=== PATIENT | male | born 1930 | race Caucasian/White ===

== ENCOUNTER 2017-02-13 19:04 | Observation (INO) | payer OTHER ==
[~2017-02-13] VITALS: Ht 177.8 cm; Wt 70.0 kg
[~2017-02-13 19:04] MED LIST: ARIC5TAB PO; ATOR10TA15 PO; DIGO0.12 PO; FLUT1SPR9 EACH NARE; FURO40TA PO; GABA400C5 PO; LEVA250T PO; LEVE500T8 PO; POTA-163 PO; PROS5TAB PO; SERT-132 PO; TAMS5CAP PO; XARE20TA PO
[2017-02-13 19:06] VITALS: BP 104/58; PULSE 88; RESP 16; TEMP 97.8; O2SAT 97
--- NOTE | 2017-02-13 19:14 | PD ---
Physical Exam Date Seen by Provider: Feb 13, 2017 Time Seen by Provider: 19:12 Narrative 86 yo male here for evaluation of possible "mini stroke". Per family member had an episode where he couldnt talk. Was at a place for a drink and started acting different. History of previous CVA. Per family member he is weaker than before. chronic weakness to left side but also right is weak now. Vitals are stable in triage. Awaiting Bed placement. Data Data Last Documented VS Vital Signs Date Time Temp Pulse Resp B/P Pulse Ox O2 Delivery O2 Flow Rate FiO2 02/13/17 19:06 97.8 88 16 104/58 97 Room Air [facility] Medical Record Reviewed: Yes Supervised Visit with EDITA: No Natan Carter Feb 13, 2017 19:14
[2017-02-13] MEDS ORDERED: SODIUM CHLORIDE 0.9% FLUSH 10 ML FLUSH IVF PRN (19:45)
--- NOTE | 2017-02-13 19:47 | PD ---
HPI Chief Complaint: Neuro Symptoms/ Deficits Time Seen by Provider: 19:34 Travel History International Travel<30 days: No Contact w/Intl Traveler<30days: No Traveled to known affect area: No History of Present Illness HPI Patient is a 86-year-old male presenting with his son after an episode of aphasia and memory issues that occurred approximately an hour and a half prior to arrival. Since states an hour and a half ago patient was unable to speak, his speech was garbled for approximately 10 minutes. After that he had issues with his memory, he did not know his son's name or where he lived. Son states that he usually oriented to self and knows generally where he lives. He reports decreased appetite for the last 3 weeks, he stated that he had blood and a clot in his depends yesterday. There was no blood on the brief today. Patient has a history of CVA with residual left-sided weakness. His primary care provider put him on Zoloft last week hoping to increase his appetite. Patient denies any complaints at this time. PFSH Past Medical History Hx Anticoagulant Therapy: Yes (XARELTO) Arthritis: No Atrial Fibrillation: Yes Anxiety: No Depression: No Cancer: Yes (SKIN CANCER) Cardiac Catheterization: Yes Cardiovascular Problems: Yes (PACER, VALVE REPLACEMENT) High Cholesterol: Yes Chest Pain: Yes Congestive Heart Failure: Yes Cerebrovascular Accident: Yes (Left sided weakness ) Coronary Artery Disease: Yes Diminished Hearing: No Endocrine: No Gastrointestinal Disorders: Yes Genitourinary: No Headaches: Yes Hypertension: Yes Immune Disorder: No Neurologic: Yes Reproductive: No Respiratory: No Migraines: No Pneumonia: Yes Renal Failure: No Seizures: No Past Surgical History Abdominal Surgery: No Cardiac Surgery: Yes (PACEMAKER ON DEMAND) Coronary Artery Bypass Graft: Yes (X 1 IN 1994) Endocrine Surgery: No Eye Surgery: No Genitourinary Surgery: No Gynecologic Surgery: No Neurologic Surgery: No Oral Surgery: No Pacemaker: Yes Thoracic Surgery: No Valve Replacement: Yes Other Surgery: Yes (CYST (pilonidal)) Social History Alcohol Use: Yes (OCCASSIONALLY ) Tobacco Use: No Substance Use: No Allergies-Medications (Allergen,Severity, Reaction): Coded Allergies: No Known Allergies (Verified , 02/13/17) Reported Meds & Prescriptions Reported Meds & Active Scripts Active Levaquin (Levofloxacin) 250 Mg Tab 250 Mg PO DAILY 5 Days Reported Vitamin B-12 (Cyanocobalamin) 1,000 Mcg Subl 1,000 Mcg SL DAILY Folic Acid 800 Mcg Tab 1 Mg PO DAILY Xarelto (Rivaroxaban) 20 Mg Tab 20 Mg PO DAILY Sertraline (Sertraline HCl) 50 Mg Tab 25 Mg PO DAILY Proscar (Finasteride) 5 Mg Tab 5 Mg PO DAILY Do not crush. Potassium Chloride ER (Potassium Chloride) 20 Meq Tab 20 Meq PO BID Levetiracetam 500 Mg Tab 500 Mg PO BID Gabapentin 400 Mg Cap 400 Cap PO HS Furosemide 40 Mg Tab 40 Mg PO BID Flonase Allergy Relief Children Nasal [place] (Fluticasone Nasal [place]) 50 Mcg/ Act [place] 1 [place] EACH NARE DAILY 50 mcg/spray Flomax (Tamsulosin HCl) 0.4 Mg Cap 0.4 Mg PO HS Digoxin 0.125 Mg Tab 0.125 Mg PO DAILY Atorvastatin (Atorvastatin Calcium) 10 Mg Tab 10 Mg PO HS Aricept (Donepezil) 5 Mg Tab 5 Mg PO HS Review of Systems Except as stated in HPI: all other systems reviewed are Neg Gastrointestinal: Positive: Loss of Appetite, No: Nausea, Diarrhea Genitourinary: Positive: Hematuria Neurologic: Positive: Change in Mentation, Other (APHASIA, NOW RESOLVED) Physical Exam Narrative GENERAL: Thin, cachectic, elderly male. Resting comfortably in no acute distress. SKIN: Warm and dry. HEAD: Atraumatic. Normocephalic. EYES: Pupils equal and round. No scleral icterus. No injection or drainage. ENT: No nasal bleeding or discharge. Mucous membranes pink and moist. NECK: Trachea midline. No JVD. CARDIOVASCULAR: Regular rate and rhythm. RESPIRATORY: No accessory muscle use. Clear to auscultation. Breath sounds equal bilaterally. GASTROINTESTINAL: Abdomen soft, non-tender, nondistended. Hepatic and splenic margins not palpable. MUSCULOSKELETAL: Extremities without clubbing, cyanosis, or edema. No obvious deformities. NEUROLOGICAL: Awake and alert, oriented to self. No obvious cranial nerve deficits. Motor grossly within normal limits. Five out of 5 muscle strength in the arms and legs on the right, 4 out of 5 in the left. Normal speech. PSYCHIATRIC: Appropriate mood and affect; insight and judgment normal. Data Data Last Documented VS Vital Signs Date Time Temp Pulse Resp B/P Pulse Ox O2 Delivery O2 Flow Rate FiO2 02/13/17 19:52 92 Room Air 02/13/17 19:06 97.8 88 16 104/58 Orders Electrocardiogram (02/13/17 19:33) Prothrombin Time / Inr (Pt) (02/13/17 19:33) Act Partial Throm Time (Ptt) (02/13/17 19:33) Complete Blood Count With Diff (02/13/17 19:33) Comprehensive Metabolic Panel (02/13/17 19:33) Creatine Kinase (Cpk) (02/13/17 19:33) Troponin I (02/13/17 19:33) Urinalysis - C+S If Indicated (02/13/17 19:33) Ct Brain W/O Iv Contrast(Rout) (02/13/17 19:33) Ecg Monitoring (02/13/17 19:33) Iv Access Insert/Monitor (02/13/17 19:33) Oximetry (02/13/17 19:33) Sodium Chloride 0.9% Flush (Ns Flush) (02/13/17 19:45) Urine Culture (02/13/17 19:40) Ceftriaxone Inj (Rocephin Inj) (02/13/17 21:15) Admit Order (Ed Use Only) (02/13/17 22:06) Labs Laboratory Tests Test 02/13/17 19:40 White Blood Count 8.5 TH/MM3 Red Blood Count 5.24 MIL/MM3 Hemoglobin 15.8 GM/DL Hematocrit 48.4 % Mean Corpuscular Volume 92.3 FL Mean Corpuscular Hemoglobin 30.2 PG Mean Corpuscular Hemoglobin 32.8 % Concent Red Cell Distribution Width 14.4 % Platelet Count 256 TH/MM3 Mean Platelet Volume 9.1 FL Neutrophils (%) (Auto) 81.8 % Lymphocytes (%) (Auto) 9.6 % Monocytes (%) (Auto) 8.1 % Eosinophils (%) (Auto) 0.1 % Basophils (%) (Auto) 0.4 % Neutrophils # (Auto) 7.0 TH/MM3 Lymphocytes # (Auto) 0.8 TH/MM3 Monocytes # (Auto) 0.7 TH/MM3 Eosinophils # (Auto) 0.0 TH/MM3 Basophils # (Auto) 0.0 TH/MM3 CBC Comment DIFF FINAL Differential Comment Prothrombin Time 12.8 SEC Prothromb Time International 1.2 RATIO Ratio Activated Partial 34.8 SEC Thromboplast Time Urine Color YELLOW Urine Turbidity CLOUDY Urine pH 5.5 Urine Specific [place] 1.021 Urine Protein 30 mg/dL Urine Glucose (UA) NEG mg/dL Urine Ketones NEG mg/dL Urine Occult Blood SMALL Urine Nitrite POS Urine Bilirubin NEG Urine Urobilinogen LESS THAN 2.0 MG/DL Urine Leukocyte Esterase LARGE Urine RBC 66 /hpf Urine WBC /hpf Urine WBC Clumps FEW Urine Amorphous Sediment RARE Urine Bacteria MANY /hpf Urine Mucus FEW /lpf Microscopic Urinalysis Comment CATH-CULTURE IND Sodium Level 139 MEQ/L Potassium Level 4.1 MEQ/L Chloride Level 105 MEQ/L Carbon Dioxide Level 19.2 MEQ/L Anion Gap 15 MEQ/L Blood Urea Nitrogen 32 MG/DL Creatinine 1.28 MG/DL Estimat Glomerular Filtration 53 ML/MIN Rate Random Glucose 108 MG/DL Calcium Level 8.5 MG/DL Total Bilirubin 0.4 MG/DL Aspartate Amino Transf 31 U/L (AST/SGOT) Alanine Aminotransferase 32 U/L (ALT/SGPT) Alkaline Phosphatase 202 U/L Total Creatine Kinase 54 U/L Troponin I 0.02 NG/ML Total Protein 7.3 GM/DL Albumin 2.8 GM/DL MDM Medical Decision Making Medical Screen Exam Complete: Yes Emergency Medical Condition: Yes Interpretation(s) Vital Signs Date Time Temp Pulse Resp B/P Pulse Ox O2 Delivery O2 Flow Rate FiO2 02/13/17 19:06 97.8 88 16 104/58 97 Room Air Differential Diagnosis TIA versus CVA versus UTI versus other Narrative Course Patient is a 86-year-old male that presented to emergency room for evaluation of neurological symptoms. Patient had an episode of aphasia lasted approximately 10 minutes, it was followed by memory loss. Additionally patient has had a decline in his appetite over the last 3 weeks. Labs and imaging ordered and pending. His vital signs are stable. CT brain shows no acute abnormality CBC is unremarkable Chemistry with no acute findings Urinalysis is indicative of urinary tract infection, positive for nitrites, large amount of leukocyte esterase, 66 RBCs, few white blood cell clumps, many bacteria, reflux culture pending. Patient given 1 g Rocephin IV. Patient will be admitted under observation due to altered mental status which could be related to a TIA or more likely due to the urinary tract infection. Admit orders placed. Diagnosis Primary Impression: Altered mental status Qualified Code: R41.0 - Delirium Additional Impressions: Neurological symptoms UTI (urinary tract infection) Qualified Code: N39.0 - Urinary tract infection with hematuria, site unspecified Admitting Information Admitting Physician Requests: Observation Condition: Stable Franca Williamson [facility] Feb 13, 2017 19:47
[2017-02-13 19:52] VITALS: O2SAT 93
[2017-02-13 20:08] LABS: APTT (PATIENT) 34.8 SEC (24.3-30.1); INTERNATIONAL NORMALIZED RATIO 1.2 RATIO; PROTHROMBIN TIME - PATIENT 12.8 SEC (9.8-11.6)
[2017-02-13 20:16] LABS: BASOPHIL % 0.4 % (0.0-2.0); EOSINOPHIL % 0.1 % (0.0-4.0); HEMATOCRIT 48.4 % (39.0-51.0); HEMO FLAGS DIFF FINAL; LYMPH % 9.6 % (9.0-44.0); LYMPHOCYTE # 0.8 TH/MM3 (1.0-4.8); MEAN CELL VOLUME 92.3 FL (80.0-100.0); MEAN CORPUSCULAR HEMOGLOBIN 30.2 PG (27.0-34.0); MEAN CORPUSCULAR HGB CONC 32.8 % (32.0-36.0); MONO % 8.1 % (0.0-8.0); NEUT % 81.8 % (16.0-70.0); PLATELET COUNT 256 TH/MM3 (150-450); RED BLOOD COUNT 5.24 MIL/MM3 (4.50-5.90); RED CELL DISTRIBUTION WIDTH 14.4 % (11.6-17.2); WHITE BLOOD COUNT 8.5 TH/MM3 (4.0-11.0)
[2017-02-13 20:24] LABS: ANION GAP 15 MEQ/L (5-15); AST (GOT) 31 U/L (15-37); BICARBONATE 19.2 MEQ/L (21.0-32.0); BLOOD UREA NITROGEN 32 MG/DL (7-18); CHLORIDE 105 MEQ/L (98-107); GLOMERULAR FILTRATION RATE 53 ML/MIN (>89); POTASSIUM 4.1 MEQ/L (3.5-5.1); SODIUM (NA) 139 MEQ/L (136-145)
[2017-02-13 20:25] LABS: ALT (GPT) 32 U/L (12-78)
--- NOTE | 2017-02-13 20:26 | PD ---
Physical Exam Narrative General: The patient is a well-developed well-nourished male, drowsy on my arrival in the room. The patient reports that he just like to sleep. Head and Neck exam: Head is normocephalic atraumatic. Eyes: EOMI, pupils are equal round and reactive to light. Nose: Midline septum with pink mucous membranes Mouth: Dentition unremarkable. Moist mucus membranes. Posterior oropharynx is not erythematous. No tonsillar hypertrophy. Uvula midline. Airway patent. Neck: No palpable lymphadenopathy. No nuchal rigidity. No thyromegaly. Cardiovascular: Sinus bradycardia in the 60s without murmurs, gallops, or rubs. No pulse deficit to the extremities and simultaneous auscultation and palpation of the radial artery. Lungs: Clear to auscultation bilaterally. No wheezes, rhonchi, or rales. Abdomen: Soft, with some suprapubic abdominal discomfort on palpation, no other tenderness on palpation of the other quadrants of the abdomen. No guarding, rebound, or rigidity. Normal bowel sounds are audible. No tenderness on palpation of McBurney's point. Negative [place] sign. Extremities: No clubbing, cyanosis, or edema. 2+ pulses in all 4 extremities. Back: No spinous process tenderness to palpation. No costovertebral angle tenderness to palpation. Neurologic Exam: He has no focal findings on neurologic examination at this time other than his residual baseline weakness of the left side related to his prior stroke. Skin Exam: No rash noted. Intact skin that is warm and dry. Data Data Last Documented VS Vital Signs Date Time Temp Pulse Resp B/P Pulse Ox O2 Delivery O2 Flow Rate FiO2 02/13/17 19:52 92 Room Air 02/13/17 19:06 97.8 88 16 104/58 Orders Electrocardiogram (02/13/17 19:33) Prothrombin Time / Inr (Pt) (02/13/17 19:33) Act Partial Throm Time (Ptt) (02/13/17 19:33) Complete Blood Count With Diff (02/13/17 19:33) Comprehensive Metabolic Panel (02/13/17 19:33) Creatine Kinase (Cpk) (02/13/17 19:33) Troponin I (02/13/17 19:33) Urinalysis - C+S If Indicated (02/13/17 19:33) Ct Brain W/O Iv Contrast(Rout) (02/13/17 19:33) Ecg Monitoring (02/13/17 19:33) Iv Access Insert/Monitor (02/13/17 19:33) Oximetry (02/13/17 19:33) Sodium Chloride 0.9% Flush (Ns Flush) (02/13/17 19:45) Urine Culture (02/13/17 19:40) Ceftriaxone Inj (Rocephin Inj) (02/13/17 21:15) Labs Laboratory Tests Test 02/13/17 19:40 White Blood Count 8.5 TH/MM3 Red Blood Count 5.24 MIL/MM3 Hemoglobin 15.8 GM/DL Hematocrit 48.4 % Mean Corpuscular Volume 92.3 FL Mean Corpuscular Hemoglobin 30.2 PG Mean Corpuscular Hemoglobin 32.8 % Concent Red Cell Distribution Width 14.4 % Platelet Count 256 TH/MM3 Mean Platelet Volume 9.1 FL Neutrophils (%) (Auto) 81.8 % Lymphocytes (%) (Auto) 9.6 % Monocytes (%) (Auto) 8.1 % Eosinophils (%) (Auto) 0.1 % Basophils (%) (Auto) 0.4 % Neutrophils # (Auto) 7.0 TH/MM3 Lymphocytes # (Auto) 0.8 TH/MM3 Monocytes # (Auto) 0.7 TH/MM3 Eosinophils # (Auto) 0.0 TH/MM3 Basophils # (Auto) 0.0 TH/MM3 CBC Comment DIFF FINAL Differential Comment Prothrombin Time 12.8 SEC Prothromb Time International 1.2 RATIO Ratio Activated Partial 34.8 SEC Thromboplast Time Urine Color YELLOW Urine Turbidity CLOUDY Urine pH 5.5 Urine Specific [place] 1.021 Urine Protein 30 mg/dL Urine Glucose (UA) NEG mg/dL Urine Ketones NEG mg/dL Urine Occult Blood SMALL Urine Nitrite POS Urine Bilirubin NEG Urine Urobilinogen LESS THAN 2.0 MG/DL Urine Leukocyte Esterase LARGE Urine RBC 66 /hpf Urine WBC /hpf Urine WBC Clumps FEW Urine Amorphous Sediment RARE Urine Bacteria MANY /hpf Urine Mucus FEW /lpf Microscopic Urinalysis Comment CATH-CULTURE IND Sodium Level 139 MEQ/L Potassium Level 4.1 MEQ/L Chloride Level 105 MEQ/L Carbon Dioxide Level 19.2 MEQ/L Anion Gap 15 MEQ/L Blood Urea Nitrogen 32 MG/DL Creatinine 1.28 MG/DL Estimat Glomerular Filtration 53 ML/MIN Rate Random Glucose 108 MG/DL Calcium Level 8.5 MG/DL Total Bilirubin 0.4 MG/DL Aspartate Amino Transf 31 U/L (AST/SGOT) Alanine Aminotransferase 32 U/L (ALT/SGPT) Alkaline Phosphatase 202 U/L Total Creatine Kinase 54 U/L Troponin I 0.02 NG/ML Total Protein 7.3 GM/DL Albumin 2.8 GM/DL [facility] Medical Record Reviewed: Yes Supervised Visit with EDITA: Yes Interpretation(s) Last Impressions Head CT 02/13/171932 Signed Impressions: Service Date/Time: Monday, February 13, 2017 20:28 - CONCLUSION: 1. No acute intracranial abnormality. 2. 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 Juan Ramírez Jr., MD Narrative Course I, Dr. Dumont, have reviewed the advance practice practitioner's documentation and am in agreement, met with the patient face to face, made the diagnosis, and the medical decision making was done by me. The patient was initially seen by Franca. Please see her complete history and physical. *My assessment and Findings: The patient is an 86-year-old male who presents to [facility] emergency Department with a history of according to his son having onset of nausea and vomiting small amount prior to arrival associated with confusion, and difficulty speaking. The patient's son was concerned that he may be experiencing a TIA or stroke. The symptoms lasted for approximately 10 minutes. The patient does have a prior history of stroke with residual left-sided weakness. The patient is chronically anticoagulated on Xarelto for atrial fibrillation. The patient's son reports that he has not been well over the last few days with diminished appetite. He reports that he also noticed yesterday when changing him that he had a small amount of blood in his diaper that appeared to be coming from his urine. The patient reports having a recent cough. He denies having any known fevers. He denies having any diarrhea. He denies having any chest pain, chest pressure, or shortness of breath. He has no focal findings on neurologic examination at this time other than his residual baseline weakness of the left side related to his prior stroke. During the course of the patients emergency department visit, the patients history, examination, and differential diagnosis were reviewed with the patient. The patient had IV access obtained and blood work sent for analysis. The patient states on a director cardiac with oximetry and blood pressure monitoring The patients laboratory studies were reviewed and remarkable for a white count of 8.5, hemoglobin 15.8, platelets 256 with 81.8 neutrophils, CMP is remarkable for CO2 19.2, BUN 32, glucose 108, alkaline phosphatase 202, albumin 2.8, PT 12.8, INR 1.2, PTT 34.8, urinalysis shows small occult blood, positive nitrite, large leukocyte esterase, 66 RBCs, innumerable WBCs, few clumps Radiology studies were reviewed and remarkable for a CT scan of the brain that shows no acute intracranial abnormality, an area of encephalomalacia involving the right frontal lobe. The patients results were discussed with the patient, including the plan of care. I explained that further testing and/ or monitoring is indicated based on the patients history, examination, and/ or laboratory findings. Therefore, I recommended admission for additional evaluation. The patient expressed understanding and was agreeable with this plan. The patient was admitted to the hospital in stable condition and sent to a [facility]. Diagnosis Primary Impression: Altered mental status Qualified Code: R41.0 - Delirium Additional Impression: Urinary tract infection Qualified Code: N39.0 - Urinary tract infection with hematuria, site unspecified Admitting Information Admitting Physician Requests: Joyce Teague MD Feb 13, 2017 20:26
[2017-02-13 20:28] LABS: ALKALINE PHOSPHATASE 202 U/L (45-117); TOTAL BILIRUBIN ADULT 0.4 MG/DL (0.2-1.0)
[2017-02-13 20:29] LABS: CREATINE KINASE 54 U/L (39-308)
[2017-02-13 20:36] LABS: BACTERIA, URINE MANY /hpf; BLOOD, URINE SMALL (NEG); GLUCOSE,URINE NEG (NEG); KETONE, URINE NEG (NEG); MUCUS URINE FEW /lpf (OCC); PH, URINE 5.5 (5.0-8.5); URINE COLOR YELLOW (YELLW/STRAW)
[2017-02-13 20:43] LABS: COMMENT (UR) CATH-CULTURE IND; CULTURE IF INDICATED CATH CULTURE IND; NITRITE,URINE POS (NEG)
--- NOTE | 2017-02-13 20:54 | RADRPT ---
EXAM DATE/TIME: 02/13/2017 20:28 [place] COMPARISON: CT BRAIN W/O CONTRAST, July 14, 2014, 10:17. INDICATIONS : Altered mental status RADIATION DOSE: 16.99 CTDIvol (mGy) MEDICAL HISTORY : Cardiovascular disease. Hypertension. SURGICAL HISTORY : Pacemaker. ENCOUNTER: Initial ACUITY: 1 day PAIN SCALE: 0/10 LOCATION: cranial TECHNIQUE: Multiple contiguous axial images were obtained of the head. Using automated exposure control and adj ustment of the mA and/or kV according to patient size, radiation dose was kept as low as reasonably a chievable to obtain optimal diagnostic quality images. DICOM format image data is available electro nically for review and comparison. FINDINGS: Atrophy. An area of encephalomalacia involving the right frontal lobe and insular cortex. This is sta ble. No hemorrhage or acute infarction. Ventricles are normal in size. Paranasal sinuses and mastoid air cells are clear. Calvarium is intact. CONCLUSION: 1. No acute intracranial abnormality. 2. 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 Juan Ramírez Jr., MD on February 13, 2017 at 20:49 Board Certified Radiologist. This report was verified electronically.
[2017-02-13] MEDS ORDERED: cefTRIAXone INJ 1,000 MG in SODIUM CHLORIDE 0.9% INJ 100 ML IV ONE (21:15)
[2017-02-13] MEDS ORDERED: FOLI400T PO (21:20)
[2017-02-13] MEDS ORDERED: VITA100021 SL (21:34)
[2017-02-13] MEDS ORDERED: FOLI800T PO (21:34)
[2017-02-13] MEDS ORDERED: SODIUM CHLORIDE 0.9% FLUSH 5 ML FLUSH IV FLUSH PRN (22:15)
[2017-02-13 22:43] VITALS: BP 122/60; PULSE 59; RESP 16; O2SAT 95
[2017-02-13 23:38] VITALS: BP 116/58; PULSE 63; RESP 16; TEMP 97.3; O2SAT 95
[2017-02-14] VITALS (9 sets, daily range): BP systolic 99–134; BP diastolic 55–78; PULSE 59–63; RESP 16–18; TEMP 96.2–98.5; O2SAT 92–97
--- NOTE | 2017-02-14 03:02 | HHI.HP ---
HPI Service [facility] Primary Care Physician Mabel Matos MD Admission Diagnosis NEURO SYMPTOMS, UTI Diagnoses: (1) Dysphagia Chief Complaint: aphasia and poor appetite Travel History International Travel<30 Days: No Contact w/Intl Traveler <30 Da: No Traveled to Known Affected Are: No History of Present Illness Written by Vidya Casas, acting as scribe for Dr. Anaya on 02/14/17 at 03:02. The patient is seen in the the CDU. He reports difficultly speaking and swallowing. He coughs after eating "enough to break it up". He denies difficulty with liquids but reports problems with meats and firm solids. Symptoms present for about 2-3 months. He says he is losing weight and believes he has lost 50 pounds over the past year. Denies aphasia. He says his oldest son brought him here. He usually ambulates with a walker. Denies fever, n/v/d, dysuria, black stool, red stool, dysuria, falls, syncope, or dizziness. . 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 Past Surgical History Spinal surgery Valve replacement - porcine Pacemaker . Reported Medications Reported Meds & Active Scripts Active Levaquin (Levofloxacin) 250 Mg Tab 250 Mg PO DAILY 5 Days Reported Vitamin B-12 (Cyanocobalamin) 1,000 Mcg Subl 1,000 Mcg SL DAILY Folic Acid 800 Mcg Tab 1 Mg PO DAILY Xarelto (Rivaroxaban) 20 Mg Tab 20 Mg PO DAILY Sertraline (Sertraline HCl) 50 Mg Tab 25 Mg PO DAILY Proscar (Finasteride) 5 Mg Tab 5 Mg PO DAILY Do not crush. Potassium Chloride ER (Potassium Chloride) 20 Meq Tab 20 Meq PO BID Levetiracetam 500 Mg Tab 500 Mg PO BID Gabapentin 400 Mg Cap 400 Cap PO HS Furosemide 40 Mg Tab 40 Mg PO BID Flonase Allergy Relief Children Nasal [place] (Fluticasone Nasal [place]) 50 Mcg/ Act [place] 1 [place] EACH NARE DAILY 50 mcg/spray Flomax (Tamsulosin HCl) 0.4 Mg Cap 0.4 Mg PO HS Digoxin 0.125 Mg Tab 0.125 Mg PO DAILY Atorvastatin (Atorvastatin Calcium) 10 Mg Tab 10 Mg PO HS Aricept (Donepezil) 5 Mg Tab 5 Mg PO HS . Allergies: Coded Allergies: No Known Allergies (Verified , 02/13/17) Active Ordered Medications Current Medications Sodium Chloride 2 ml 2 ml UNSCH PRN IVF FLUSH AFTER USING IV ACCESS; Start 06/22 at 19:45; Stop 02/13/17 at 22:13; Status DC Ceftriaxone Sodium/Sodium Chloride (Rocephin Inj/NS Inj) 100 ml @ 200 mls/hr ONCE ONCE IV Last administered on 02/13/17t 21:15; Start 02/13/17 at 21:15; Stop 02/13/17 at 21:44; Status DC IV Flush (NS Flush) 2 ml BID IV FLUSH ; Start 02/14/17 at 09:00 IV Flush (NS Flush) 2 ml UNSCH PRN IV FLUSH FLUSH AFTER USING IV ACCESS; Start 02/13/17 at 22:15 . Family History denies any family illnesses . Social History Tobacco: quit smoking 40 years ago Alcohol: denies Illicit Drugs: denies . Physical Exam Vital Signs Vital Signs Date Time Temp Pulse Resp B/P Pulse Ox O2 Delivery O2 Flow Rate FiO2 02/13/17 23:38 97.3 63 16 116/58 95 02/13/17 22:43 59 16 122/60 95 Room Air 02/13/17 19:52 92 Room Air 02/13/17 19:52 93 Room Air 02/13/17 19:06 97.8 88 16 104/58 97 Room Air Physical Exam GENERAL: This is a thin, elderly male patient, in no apparent distress. SKIN: No rashes. Cool and dry. HEAD: Atraumatic. Normocephalic. EYES: No scleral icterus. No injection or drainage. ENT: Nose without bleeding, purulent drainage. NECK: Trachea midline. No JVD or lymphadenopathy. CARDIOVASCULAR: Regular rate and rhythm without murmurs, gallops, or rubs. RESPIRATORY: Clear to auscultation. Breath sounds equal bilaterally. No wheezes , rales, or rhonchi. GASTROINTESTINAL: Abdomen soft, non-tender, nondistended. No guarding. MUSCULOSKELETAL: Extremities without clubbing, cyanosis, or edema. No calf tenderness. Left upper extremity is weak, other extremities equally strong. NEUROLOGICAL: Awake and alert. Hypophonic speech. Left upper extremity is weak , other extremities equally strong. No facial drooping. . Laboratory Laboratory Tests Test 02/13/17 19:40 White Blood Count 8.5 Red Blood Count 5.24 Hemoglobin 15.8 Hematocrit 48.4 Mean Corpuscular Volume 92.3 Mean Corpuscular Hemoglobin 30.2 Mean Corpuscular Hemoglobin 32.8 Concent Red Cell Distribution Width 14.4 Platelet Count 256 Mean Platelet Volume 9.1 Neutrophils (%) (Auto) 81.8 Lymphocytes (%) (Auto) 9.6 Monocytes (%) (Auto) 8.1 Eosinophils (%) (Auto) 0.1 Basophils (%) (Auto) 0.4 Neutrophils # (Auto) 7.0 Lymphocytes # (Auto) 0.8 Monocytes # (Auto) 0.7 Eosinophils # (Auto) 0.0 Basophils # (Auto) 0.0 CBC Comment DIFF FINAL Differential Comment Prothrombin Time 12.8 Prothromb Time International 1.2 Ratio Activated Partial 34.8 Thromboplast Time Urine Color YELLOW Urine Turbidity CLOUDY Urine pH 5.5 Urine Specific [place] 1.021 Urine Protein 30 Urine Glucose (UA) NEG Urine Ketones NEG Urine Occult Blood SMALL Urine Nitrite POS Urine Bilirubin NEG Urine Urobilinogen LESS THAN 2.0 Urine Leukocyte Esterase LARGE Urine RBC 66 Urine WBC Urine WBC Clumps FEW Urine Amorphous Sediment RARE Urine Bacteria MANY Urine Mucus FEW Microscopic Urinalysis Comment CATH-CULTURE IND Sodium Level 139 Potassium Level 4.1 Chloride Level 105 Carbon Dioxide Level 19.2 Anion Gap 15 Blood Urea Nitrogen 32 Creatinine 1.28 Estimat Glomerular Filtration 53 Rate Random Glucose 108 Calcium Level 8.5 Total Bilirubin 0.4 Aspartate Amino Transf 31 (AST/SGOT) Alanine Aminotransferase 32 (ALT/SGPT) Alkaline Phosphatase 202 Total Creatine Kinase 54 Troponin I 0.02 Total Protein 7.3 Albumin 2.8 Date/Time Procedure Status Source Growth 02/13/17 19:40 Urine Culture Received Urine Catheterized Urine Pending Result Diagram: 02/13/17193902/13/171939 Imaging Last Impressions Head CT 02/13/171932 Signed Impressions: Service Date/Time: Monday, February 13, 2017 20:28 - CONCLUSION: 1. No acute intracranial abnormality. 2. 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 Juan Ramírez Jr., MD . Assessment and Plan Problem List: (1) Dysphagia ICD Code: R13.10 Status: Acute (2) Weight loss ICD Code: R63.4 Status: Acute (3) Urinary tract infection ICD Code: N39.0 Status: Acute (4) Altered mental status ICD Code: R41.82 Status: Acute (5) Aphasia ICD Code: R47.01 Status: Acute Assessment and Plan 86 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 At the time of my visit, he is only complaining of dysphagia and weight loss only. Dysphagia with weight loss - GI consultation - passed bedside swallowing evaluation per RN - will start full liquid diet UTI suspected - UA c/w UTI - continue Ceftriaxone 1 gram q12h - urine culture is pending - await results and adjust treatment as indicated Confusion and aphasia: TIA vs seizure vs infection - may be related to UTI - appears alert and oriented with no speech difficulties at the time of examination - will check EEG to evaluate for seizure activity - consult neurology - assistance appreciated DVT prophylaxis - continue home Xarelto Discussed Condition With ER PA, RN, and patient . Problem Qualifiers (1) Urinary tract infection: Qualified Code: N39.0 - Urinary tract infection with hematuria, site unspecified (2) Altered mental status: Qualified Code: R41.0 - Delirium Vidya Casas Feb 14, 2017 03:02
[2017-02-14] MEDS ORDERED: RIVAROXABAN 20 MG TAB PO SCH (09:00)
[2017-02-14 09:10] LABS: AUTOMATED NEUTROPHIL # 2.8 TH/MM3 (1.8-7.7); BASOPHIL % 0.7 % (0.0-2.0); EOSINOPHIL # 0.1 TH/MM3 (0-0.4); EOSINOPHIL % 1.3 % (0.0-4.0); HEMATOCRIT 41.1 % (39.0-51.0); HEMO FLAGS DIFF FINAL; LYMPH % 32.7 % (9.0-44.0); LYMPHOCYTE # 1.8 TH/MM3 (1.0-4.8); MEAN CELL VOLUME 91.4 FL (80.0-100.0); MEAN CORPUSCULAR HEMOGLOBIN 30.6 PG (27.0-34.0); MEAN CORPUSCULAR HGB CONC 33.5 % (32.0-36.0); NEUT % 52.3 % (16.0-70.0); PLATELET COUNT 199 TH/MM3 (150-450); RED CELL DISTRIBUTION WIDTH 14.3 % (11.6-17.2); WHITE BLOOD COUNT 5.4 TH/MM3 (4.0-11.0)
--- NOTE | 2017-02-14 09:26 | PD.CONS ---
HPI History of Present Illness This is a 86 year old male with a history of CVA, atrial fibrillation (on Xarelto), hypertension, hyperlipidemia, coronary artery disease, valvular heart disease (s/p aortic valve replacement), who presented to the ER for evaluation of difficulty swallowing and abnormal weight loss. He resides with his son and states that he came in because he cannot eat well and has lost 30-50 lbs over the past 3 months. He feels this is a combination of decreased appetite and difficulty swallowing. He notes that he does frequently cough when drinking liquids, but also complains of solids getting caught in his upper esophageal area. This is worse with dry foods such as bread and he states he seems to do better with moister, softer consistencies such as ice cream. He denies any pain with swallowing or any heartburn, reflux, nausea, vomiting, or abdominal pain. He does note that he has constipation, but states that this is more chronic and nothing new. He takes medications at times for this, but is unsure what it is. He has not seen any black tarry stools or blood in his stool, but does note that he was recently told that he had blood in his stool from a laboratory test. He is not aware of any history of esophageal strictures and does not recall having an EGD or colonoscopy in the past. PFSH Past Medical History HTN CVA Atrial fibrillation Hyperlipidemia CAD Hx DVT Skin cancer Valvular heart disease Past Surgical History Spinal surgery Aortic valve replacement - porcine Pacemaker placement and battery replacement PICC line placement Pilonidal cyst excision Coded Allergies: No Known Allergies (Verified , 02/13/17) Medications Allergies Coded Allergies Type Severity Reaction Last Updated Verified No Known Allergies 02/13/17 Yes Active Scripts Medications Dose Route/Sig Days Date Category Dose Instructions Vitamin B-12 (Cyanocobalamin) 1,000 Mcg Subl 1,000 Mcg SL DAILY 02/13/17 Reported Folic Acid 800 Mcg Tab 1 Mg PO DAILY 02/13/17 Reported Levaquin (Levofloxacin) 250 Mg Tab 250 Mg PO DAILY 5 07/19/16 Rx Xarelto (Rivaroxaban) 20 Mg Tab 20 Mg PO DAILY 07/19/16 Reported Sertraline (Sertraline HCl) 50 Mg Tab 25 Mg PO DAILY 07/19/16 Reported Proscar (Finasteride) 5 Mg Tab 5 Mg PO DAILY 07/19/16 Reported Do not crush. Potassium Chloride ER (Potassium Chloride) 20 Meq Tab 20 Meq PO BID 07/19/16 Reported Levetiracetam 500 Mg Tab 500 Mg PO BID 07/19/16 Reported Gabapentin 400 Mg Cap 400 Cap PO HS 07/19/16 Reported Furosemide 40 Mg Tab 40 Mg PO BID 07/19/16 Reported Flonase Allergy Relief Children Nasal [place] (Fluticasone Nasal [place]) 50 Mcg/Act [place] 1 [place] EACH NARE DAILY 07/19/16 Reported 50 mcg/spray Flomax (Tamsulosin HCl) 0.4 Mg Cap 0.4 Mg PO HS 07/19/16 Reported Digoxin 0.125 Mg Tab 0.125 Mg PO DAILY 07/19/16 Reported Atorvastatin (Atorvastatin Calcium) 10 Mg Tab 10 Mg PO HS 07/19/16 Reported Aricept (Donepezil) 5 Mg Tab 5 Mg PO HS 07/19/16 Reported Family History No known family hx of esophageal, gastric, colorectal cancer. Social History Quit smoking 40 years ago No etoh or illicit drug use Review of Systems Constitutional: COMPLAINS OF: Fatigue, Weight loss, Change in appetite, DENIES : Fever, Chills Respiratory: COMPLAINS OF: Cough, DENIES: Shortness of breath Cardiovascular: DENIES: Chest pain Gastrointestinal: COMPLAINS OF: Constipation, Difficulty Swallowing, Anorexia, DENIES: Abdominal pain, Black stools, Bloody stools, Diarrhea, Nausea, Vomiting, Odynophagia, Heartburn, Hematemesis Musculoskeletal: COMPLAINS OF: Joint pain, Back pain Hematologic/lymphatic: COMPLAINS OF: Bruising Neurologic: DENIES: Headache Psychiatric: DENIES: Confusion GI Exam Vitals I&O Vital Signs Date Time Temp Pulse Resp B/P Pulse Ox O2 Delivery O2 Flow Rate FiO2 02/14/17 07:55 97.6 60 18 109/60 95 02/14/17 04:06 96.2 60 16 106/55 92 02/13/17 23:38 97.3 63 16 116/58 95 02/13/17 22:43 59 16 122/60 95 Room Air 02/13/17 19:52 92 Room Air 02/13/17 19:52 93 Room Air 02/13/17 19:06 97.8 88 16 104/58 97 Room Air Imaging Last Impressions Head CT 02/13/171932 Signed Impressions: Service Date/Time: Monday, February 13, 2017 20:28 - CONCLUSION: 1. No acute intracranial abnormality. 2. 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 Juan Ramírez Jr., MD Laboratory Test 02/13/17 02/14/17 19:40 07:33 White Blood Count 8.5 TH/MM3 5.4 TH/MM3 Red Blood Count 5.24 MIL/MM3 4.50 MIL/MM3 Hemoglobin 15.8 GM/DL 13.7 GM/DL Hematocrit 48.4 % 41.1 % Mean Corpuscular Volume 92.3 FL 91.4 FL Mean Corpuscular Hemoglobin 30.2 PG 30.6 PG Mean Corpuscular Hemoglobin 32.8 % 33.5 % Concent Red Cell Distribution Width 14.4 % 14.3 % Platelet Count 256 TH/MM3 199 TH/MM3 Mean Platelet Volume 9.1 FL 8.8 FL Neutrophils (%) (Auto) 81.8 % 52.3 % Lymphocytes (%) (Auto) 9.6 % 32.7 % Monocytes (%) (Auto) 8.1 % 13.0 % Eosinophils (%) (Auto) 0.1 % 1.3 % Basophils (%) (Auto) 0.4 % 0.7 % Neutrophils # (Auto) 7.0 TH/MM3 2.8 TH/MM3 Lymphocytes # (Auto) 0.8 TH/MM3 1.8 TH/MM3 Monocytes # (Auto) 0.7 TH/MM3 0.7 TH/MM3 Eosinophils # (Auto) 0.0 TH/MM3 0.1 TH/MM3 Basophils # (Auto) 0.0 TH/MM3 0.0 TH/MM3 CBC Comment DIFF FINAL DIFF FINAL Differential Comment Prothrombin Time 12.8 SEC Prothromb Time International 1.2 RATIO Ratio Activated Partial 34.8 SEC Thromboplast Time Urine Color YELLOW Urine Turbidity CLOUDY Urine pH 5.5 Urine Specific [place] 1.021 Urine Protein 30 mg/dL Urine Glucose (UA) NEG mg/dL Urine Ketones NEG mg/dL Urine Occult Blood SMALL Urine Nitrite POS Urine Bilirubin NEG Urine Urobilinogen LESS THAN 2.0 MG/DL Urine Leukocyte Esterase LARGE Urine RBC 66 /hpf Urine WBC /hpf Urine WBC Clumps FEW Urine Amorphous Sediment RARE Urine Bacteria MANY /hpf Urine Mucus FEW /lpf Microscopic Urinalysis Comment CATH-CULTURE IND Sodium Level 139 MEQ/L Potassium Level 4.1 MEQ/L Chloride Level 105 MEQ/L Carbon Dioxide Level 19.2 MEQ/L Anion Gap 15 MEQ/L Blood Urea Nitrogen 32 MG/DL Creatinine 1.28 MG/DL Estimat Glomerular Filtration 53 ML/MIN Rate Random Glucose 108 MG/DL Calcium Level 8.5 MG/DL Total Bilirubin 0.4 MG/DL Aspartate Amino Transf 31 U/L (AST/SGOT) Alanine Aminotransferase 32 U/L (ALT/SGPT) Alkaline Phosphatase 202 U/L Total Creatine Kinase 54 U/L Troponin I 0.02 NG/ML Total Protein 7.3 GM/DL Albumin 2.8 GM/DL Date/Time Procedure Status Source Growth 02/13/17 19:40 Urine Culture Received Urine Catheterized Urine Pending Physical Examination HEENT: Normocephalic; atraumatic; no jaundice. CHEST: CTA, shallow, diminished CARDIAC: Irregular ABDOMEN: Soft, nondistended, nontender; no hepatosplenomegaly; bowel sounds are present in all four quadrants. EXTREMITIES: No clubbing, cyanosis, or edema. SKIN: Skin warm/dry SCHOOL COORDINATOR: Lethargic and oriented times three. Assessment and Plan Plan ASSESSMENT: - Dysphagia. Seems to be multifactorial. He does have a history of CVA and c/ o coughing with thin liquids, but also feels as if dry solids are getting caught in his upper esophagus. he does better with moist softer foods such as ice cream. He denies any hx of esophageal strictures. He had his CVA about 6 years ago and states that he was eating fine up until 3 months ago. Of note, he is on Xarelto for atrial fibrillation and hx of DVT/CVA. Will get MBS and d/w attending using more short acting anticoagulant that can be held prior to EGD. - Abn. Weight Loss. Pt feels this is both related to decreased appetite and because of difficulty swallowing. He was doing well up until 3 months ago, when he developed decreased appetite and started having issues swallowing. He reports a 30-50 lb weight loss in 3 months. He has never had EGD/Colonoscopy. Will get contrasted CT scan abdomen and pelvis. - ? Hemoccult (+) Stool. Pt has not seen blood n stool, but states that he was recently found to have blood on lab tests. Never had egd/colonoscopy. Will guiac stool - Atrial fibrillation with hx of CVA, DVT. On Xarelto. Will d/w attending using a shorter acting anticoagulant that can be held prior to EGD. - CAD, Hx Valvular heart disease, HTN, Hyperlipidemia. S/P Aortic valve replacement (tissue) and PPM. per attending PLAN: - LUPE - PPI - MBS - ST evaluation - CT scan abdomen and pelvis with iv/po contrast - Consider changing Xarelto to shorter acting anticoagulant that can be held prior to procedures - Hemoccult Stool x 3 - Monitor HH - Supportive care - Further recommendations to follow based on results of above - Pt seen and examined by Kumar and myself and this note is written on his behalf Aviva Lopez Feb 14, 2017 09:26
[2017-02-14 09:50] LABS: BLOOD UREA NITROGEN 30 MG/DL (7-18)
[2017-02-14 09:51] LABS: ANION GAP 9 MEQ/L (5-15); BICARBONATE 22.9 MEQ/L (21.0-32.0); CHLORIDE 106 MEQ/L (98-107); GLOMERULAR FILTRATION RATE 90 ML/MIN (>89); POTASSIUM 3.9 MEQ/L (3.5-5.1); SODIUM (NA) 138 MEQ/L (136-145)
[2017-02-14 09:54] LABS: HDL CHOLESTEROL 37.3 MG/DL (40.0-60.0); LDL CHOLESTEROL 48 MG/DL (0-99)
[2017-02-14] MEDS: cefTRIAXone INJ 1,000 MG in SODIUM CHLORIDE 0.9% INJ 100 ML IV SCH ×2 (10:10→21:00)
[2017-02-14] MEDS: DIGOXIN 0.125 MG TAB PO SCH (10:11)
[2017-02-14] MEDS: FINASTERIDE 5 MG TAB PO SCH (10:11)
[2017-02-14] MEDS: FOLIC ACID 1 MG TAB PO SCH (10:11)
[2017-02-14] MEDS: SERTRALINE HCL 50 MG TAB PO SCH (10:11)
[2017-02-14] MEDS: levETIRAcetam 500 MG TAB PO SCH ×2 (10:11→22:48)
[2017-02-14] MEDS: FUROSEMIDE 40 MG TAB PO SCH ×2 (10:11→22:49)
[2017-02-14] MEDS: SODIUM CHLORIDE 0.9% FLUSH 5 ML FLUSH IV FLUSH SCH ×2 (10:12→21:00)
[2017-02-14] MEDS: FLUTICASONE PROPIONATE 50 MCG/ACT 16 GM NASAL SPRAY EACH NARE SCH (10:12)
[2017-02-14] MEDS: PILL SPLITTER OTHER PRN ×2 (10:14→22:46)
--- NOTE | 2017-02-14 11:46 | RADRPT ---
EXAM DATE/TIME: 02/14/2017 00:00 [facility] COMPARISON: No previous studies available for comparison. INDICATIONS : Dysphagia. FLUORO TIME: 1.7 minutes IMAGE COUNT: 0 CONTRAST: Dose as prescribed by speech pathologist. MEDICAL HISTORY : Stroke. Cardiovascular disease. Hypertension SURGICAL HISTORY : Pacemaker. ENCOUNTER: Subsequent ACUITY: 2 days PAIN SCORE: 0/10 LOCATION: Bilateral Esophagus. FINDINGS: The examination was performed in conjunction with speech pathology. CONCLUSION: Please refer to speech pathology report for complete discussion. Josué Canada MD on February 14, 2017 at 11:44 Board Certified Radiologist. This report was verified electronically.
[2017-02-14] MEDS ORDERED: DIATRIZOATE MEGLUM/DIATRIZOATE SOD 9 ML CUP PO ONE (12:30)
--- NOTE | 2017-02-14 12:42 | HHI.PR ---
Subjective Remarks in no acute distress. denies pain. Objective Vitals Vital Signs Date Time Temp Pulse Resp B/P Pulse Ox O2 Delivery O2 Flow Rate FiO2 02/14/17 11:40 97.6 63 16 99/58 96 02/14/17 07:55 97.6 60 18 109/60 95 02/14/17 04:06 96.2 60 16 106/55 92 02/13/17 23:38 97.3 63 16 116/58 95 02/13/17 22:43 59 16 122/60 95 Room Air 02/13/17 19:52 92 Room Air 02/13/17 19:52 93 Room Air 02/13/17 19:06 97.8 88 16 104/58 97 Room Air Result Diagram: 02/14/17 0733 02/14/17 0733 Imaging Last Impressions Modified Barium Swallow 02/14/17 0000 Signed Impressions: Service Date/Time: Tuesday, February 14, 2017 00:00 - CONCLUSION: Please refer to speech pathology report for complete discussion. Josué Canada MD Head CT 02/13/17 1933 Signed Impressions: Service Date/Time: Monday, February 13, 2017 20:28 - CONCLUSION: 1. No acute intracranial abnormality. 2. 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 Juan Ramírez Jr., MD Objective Remarks GENERAL: This is a well-nourished, well-developed patient, in no apparent distress. CARDIOVASCULAR: Regular rate and regular rhythm without murmurs, gallops, or rubs. RESPIRATORY: Clear to auscultation. Breath sounds equal bilaterally. No wheezes , rales, or rhonchi. GASTROINTESTINAL: Abdomen soft, non-tender, nondistended. Normal, active bowel sounds MUSCULOSKELETAL: Extremities without clubbing, cyanosis, or edema. NEURO: awake and alert Medications and IVs Current Medications Sodium Chloride 2 ml 2 ml UNSCH PRN IVF FLUSH AFTER USING IV ACCESS; Start 06/22 at 19:45; Stop 02/13/17 at 22:13; Status DC Ceftriaxone Sodium/Sodium Chloride (Rocephin Inj/NS Inj) 100 ml @ 200 mls/hr ONCE ONCE IV Last administered on 02/13/17t 21:15; Start 02/13/17 at 21:15; Stop 02/13/17 at 21:44; Status DC IV Flush (NS Flush) 2 ml BID IV FLUSH Last administered on 02/14/17 10:12; Start 02/14/17 at 09:00 IV Flush 2 ml 2 ml UNSCH PRN IV FLUSH FLUSH AFTER USING IV ACCESS; Start at 22:15 Ceftriaxone Sodium/Sodium Chloride (Rocephin Inj/NS Inj) 100 ml @ 200 mls/hr Q12H IV Last administered on 02/14/17 10:10; Start 02/14/17 at 09:00 Atorvastatin Calcium (Lipitor) 10 mg HS PO ; Start 02/14/17 at 21:00 Digoxin (Lanoxin) 0.125 mg DAILY PO Last administered on 02/14/17 10:11; Start 02/14/17 at 09:00 Finasteride (Proscar) 5 mg DAILY PO Last administered on 02/14/17 10:11; Start 02/14/17 at 09:00 Fluticasone Propionate (Flonase Sán[place] Spr) 1 spray DAILY EACH NARE Last administered on 02/14/17 10:12; Start 02/14/17 at 09:00 Folic Acid (Folate) 1 mg DAILY PO Last administered on 02/14/17 10:11; Start 02/14/17 at 09:00 Furosemide (Lasix) 40 mg BID PO Last administered on 02/14/17 10:11; Start 07/22 at 09:00 Gabapentin (Neurontin) 400 mg HS PO ; Start 02/14/17 at 21:00 Levetriacetam (Keppra) 500 mg BID PO Last administered on 02/14/17 10:11; Start 02/14/17 at 09:00 Rivaroxaban (Xarelto) 20 mg DAILY PO Last administered on 02/14/17 10:11; Start 02/14/17 at 09:00 Sertraline HCl (Zoloft) 25 mg DAILY PO Last administered on 02/14/17 10:11; Start 02/14/17 at 09:00 Tamsulosin HCl (Flomax) 0.4 mg HS PO ; Start 02/14/17 at 21:00 Miscellaneous (Pill Splitter) 1 ea UNSCH PRN OTHER SEE LABEL COMMENTS Last administered on 7/12/17at 10:14; Start 02/14/17 at 03:30 Diatrizoate Meglum/ Diatrizoate Sod ( Gastroview Liq) 18 ml ONCE ONCE PO ; Start 02/14/17 at 12:30; Stop 02/14/17 at 12:31; Status DC A/P Assessment and Plan 86 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 At the time of my visit, he is only complaining of dysphagia and weight loss only. Dysphagia with weight loss - GI consult appreciated. - ST following. - on liquid diet UTI suspected - UA c/w UTI - continue Ceftriaxone - urine culture is pending - await results and adjust treatment as indicated Confusion and aphasia: TIA vs seizure vs infection - may be related to UTI - appears alert and oriented with no speech difficulties at the time of examination - will check EEG to evaluate for seizure activity - consult neurology - DVT prophylaxis - hold Xarelto for possible EGD- start Ari Seals MD Feb 14, 2017 12:42
--- NOTE | 2017-02-14 16:26 | MB ---
cc: YUMIKO MORAN M.D. DATE OF CONSULTATION: 02/14/2017 REASON FOR CONSULTATION Rule out TIA. HISTORY OF PRESENT ILLNESS Mr. Hair is an 86-year-old man. For the past 6 months or longer he has been having difficulty with walking where he tends to shuffle his feet, he is very slow at times, he has freezing episodes where he stops. He cannot get out of a chair unless his friend helps him out. Yesterday his friend took him out, he was not feeling well so he took him back home and suddenly he had a episode where he could not get words out, lasting several minutes and was very confused. He came to the ER. He was found to have a urinary tract infection. PAST MEDICAL HISTORY 1. History of previous right sided stroke with chronic left-sided weakness. 2. Pacemaker placement. 3. Hypertension. 4. Spine surgery. 5. Porcine valve replacement. MEDICATIONS AT HOME 1. Xarelto 20 mg daily. 2. Folic acid. 3. Vitamin B12. 4. Proscar. 5. Sertraline. 6. Potassium chloride. 7. Keppra 500 mg b.i.d. 8. Gabapentin 400 mg at bedtime. 9. Lasix 40 mg b.i.d. 10. Flonase. 11. Flomax. 12. Digoxin. 13. Aricept 5 mg daily. 14. Atorvastatin 10 mg daily. ALLERGIES None known. NEUROLOGIC EXAMINATION VITAL SIGNS: Blood pressure is 99/58, pulse 63, respirations 16, temperature 97 degrees. Higher cortical function: He is alert. Speech is very hypophonic. He follows commands. Cranial nerves reveal decreased facial expression. On motor exam he is very bradykinetic. He has a left-sided weakness at 4/5. He has normal strength in the right. He has cogwheel rigidity in the upper extremities. Reflexes symmetric. IMAGING STUDIES CT of the brain reveals old infarction in the right frontal lobe. LABORATORY DATA White count is 5400, hemoglobin 13.7, hematocrit 41.1%, platelet count 199,000. Sodium is 138, potassium 3.9, chloride 106, C02 22.9, BUN is 30, creatinine 0.81, GFR 90, AST 31, ALT 32, triglycerides 80, cholesterol 101, HDL 37.3. 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 I think the episode is probably a freezing episode related to the UTI. RECOMMENDATIONS Would like to start him on Sinemet 25/100 t.i.d. MD LESLY Barclay/TREY /3:27 PM /4:10 PM
--- NOTE | 2017-02-14 16:59 | EKG ---
Date Performed: 02/13/2017 Time Performed: 19:25:48 PTAGE: 86 years EKG: SUSPECTED ATRIAL FIBRILLATION ELECTRONIC VENTRICULAR PACEMAKER LEFT ATRIAL ENLARGEMENT LEFT BUNDLE BRANCH BLOCK ABNORMAL ECG Compared to the PREVIOUS TRACING rate faster DOCTOR: Ge Bradford Interpretating Date/Time 02/14/2017 16:57:42
[2017-02-14 17:01] LABS: HEMOGLOBIN A1a 0.8 %; HEMOGLOBIN A1b 1.7 %; HEMOGLOBIN Ao 85.3 %; HEMOGLOBIN P3 5.7 %
[2017-02-14] MEDS ORDERED: IOHEXOL 350 MG/ML 10 ML VIAL (for RAD DIAG) IV ONE (18:37)
--- NOTE | 2017-02-14 18:50 | RADRPT ---
EXAM DATE/TIME: 02/14/2017 18:19 [place] COMPARISON: CT ABDOMEN & PELVIS W CONTRAST, February 08, 2016, 0:27. INDICATIONS : Unexplained weight loss. IV CONTRAST: 95 cc Omnipaque 350 (iohexol) IV ORAL CONTRAST: Prescribed oral contrast ingested. RADIATION DOSE: 10.59 CTDIvol (mGy) MEDICAL HISTORY : Cardiovascular disease. Hypertension. SURGICAL HISTORY : CABG Pacemaker. ENCOUNTER: Initial ACUITY: 1 week PAIN SCALE: 0/10 LOCATION: abdomen TECHNIQUE: Volumetric scanning of the abdomen and pelvis was performed. Using automated exposure control and ad justment of the mA and/or kV according to patient size, radiation dose was kept as low as reasonably achievable to obtain optimal diagnostic quality images. DICOM format image data is available electro nically for review and comparison. FINDINGS: Minimal bibasilar parenchymal changes are noted. Consolidative changes with calcification are presen t in the left lung base stable in the interval. Moderate cardiomegaly is evident. The liver and gallbladder are unremarkable Spleen, pancreas and adrenals appear unremarkable. The right and left kidney is unremarkable 4.3 cm infrarenal abdominal aortic aneurysm is noted. Diverticuli are present in the pelvis without diverticulitis. Review of bone windows reveals only degenerative changes. CONCLUSION: Infrarenal abdominal aortic aneurysm 4.3 cm, slightly larger. Otherwise stable findi ngs. Junito Adan MD FACR on February 14, 2017 at 18:46 Board Certified Radiologist. This report was verified electronically.
--- NOTE | 2017-02-14 20:18 | MG ---
cc: MANDEEP BUTTS M.D. Lab No: Date: 02/14/2017 Age: Sex: M Race: EEG NUMBER [id number] INDICATION Hyperventilation not performed. Encephalomalacia right frontal lobe. Mini stroke. An 86-year-old man. CABG. Atrial fibrillation. Ceftriaxone. Gabapentin. Keppra. Zoloft. DESCRIPTION OF RECORDING A 12 Hz 50 microvolt posterior rhythm is noted. At times an 8 Hz posterior rhythm is seen. No hemisphere asymmetries are noted. No right frontal abnormalities are noted. Hyperventilation not performed. Photic stimulation was performed without significant posterior driving. IMPRESSION Normal awake EEG. No evidence for a focal or diffuse abnormality. MD LIZETT Morley/KK /4:55 PM /8:17 PM
[2017-02-14] MEDS: TAMSULOSIN HCL 0.4 MG CAP PO SCH (22:47)
[2017-02-14] MEDS: CARBIDOPA/LEVODOPA 25 MG/100 MG TAB PO SCH (22:49)
[2017-02-14] MEDS: ATORVASTATIN 10 MG TAB PO SCH (22:49)
[2017-02-14] MEDS: GABAPENTIN 400 MG CAP PO SCH (22:49)
[2017-02-15] VITALS (8 sets, daily range): BP systolic 84–116; BP diastolic 53–58; PULSE 59–66; RESP 14–20; TEMP 97.4–98.5; O2SAT 95–99
[2017-02-15] MEDS ORDERED: ENOXAPARIN SODIUM 80 MG/0.8 ML SYRINGE SQ SCH (09:00)
[2017-02-15] MEDS: SODIUM CHLORIDE 0.9% FLUSH 5 ML FLUSH IV FLUSH SCH ×2 (09:00→21:00)
[2017-02-15] MEDS: FLUTICASONE PROPIONATE 50 MCG/ACT 16 GM NASAL SPRAY EACH NARE SCH (09:43)
[2017-02-15] MEDS: cefTRIAXone INJ 1,000 MG in SODIUM CHLORIDE 0.9% INJ 100 ML IV SCH ×2 (09:44→21:41)
[2017-02-15] MEDS: SERTRALINE HCL 50 MG TAB PO SCH (09:46)
[2017-02-15] MEDS: levETIRAcetam 500 MG TAB PO SCH ×2 (09:46→21:40)
[2017-02-15] MEDS: DIGOXIN 0.125 MG TAB PO SCH (09:46)
[2017-02-15] MEDS: ENOXAPARIN SODIUM 80 MG/0.8 ML SYRINGE SQ SCH ×2 (09:46→21:39)
[2017-02-15] MEDS: FOLIC ACID 1 MG TAB PO SCH (09:47)
[2017-02-15] MEDS: CARBIDOPA/LEVODOPA 25 MG/100 MG TAB PO SCH ×2 (09:47→21:40)
[2017-02-15] MEDS: FINASTERIDE 5 MG TAB PO SCH (09:47)
[2017-02-15] MEDS: FUROSEMIDE 40 MG TAB PO SCH ×2 (09:47→21:40)
--- NOTE | 2017-02-15 10:02 | HHI.PR ---
Subjective Remarks in no acute distress. denies pain. afebrile. d/w the RN and no acute issues over night. Objective Vitals Vital Signs Date Time Temp Pulse Resp B/P Pulse Ox O2 Delivery O2 Flow Rate FiO2 02/15/17 07:49 97.4 62 18 92/53 99 02/14/17 20:51 98.5 59 18 134/78 97 02/14/17 20:11 60 02/14/17 16:37 97.7 60 18 115/63 95 02/14/17 16:00 60 02/14/17 12:00 60 02/14/17 11:40 97.6 63 16 99/58 96 Result Diagram: 02/14/17 0733 02/14/17 0733 Imaging Last Impressions Modified Barium Swallow 02/14/17 0000 Signed Impressions: Service Date/Time: Tuesday, February 14, 2017 00:00 - CONCLUSION: Please refer to speech pathology report for complete discussion. Josué Canada MD Abdomen/Pelvis CT 02/14/17 0000 Signed Impressions: Service Date/Time: Tuesday, February 14, 2017 18:19 - CONCLUSION: Infrarenal abdominal aortic aneurysm 4.3 cm, slightly larger. Otherwise stable findings. Junito Adan MD FACR Head CT 02/13/17 1933 Signed Impressions: Service Date/Time: Monday, February 13, 2017 20:28 - CONCLUSION: 1. No acute intracranial abnormality. 2. 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 Juan Ramírez Jr., MD Objective Remarks GENERAL: elderly male, in no apparent distress. CARDIOVASCULAR: Regular rate and regular rhythm without murmurs, gallops, or rubs. RESPIRATORY: Clear to auscultation. Breath sounds equal bilaterally. No wheezes , rales, or rhonchi. GASTROINTESTINAL: Abdomen soft, non-tender, nondistended. Normal, active bowel sounds MUSCULOSKELETAL: Extremities without clubbing, cyanosis, or edema. NEURO: awake and alert Procedures none Medications and IVs Current Medications Sodium Chloride 2 ml 2 ml UNSCH PRN IVF FLUSH AFTER USING IV ACCESS; Start 06/22 at 19:45; Stop 02/13/17 at 22:13; Status DC Ceftriaxone Sodium/Sodium Chloride (Rocephin Inj/NS Inj) 100 ml @ 200 mls/hr ONCE ONCE IV Last administered on 02/13/17 21:15; Start 02/13/17 at 21:15; Stop 02/13/17 at 21:44; Status DC IV Flush (NS Flush) 2 ml BID IV FLUSH Last administered on 02/15/17 09:00; Start 02/14/17 at 09:00 IV Flush 2 ml 2 ml UNSCH PRN IV FLUSH FLUSH AFTER USING IV ACCESS; Start at 22:15 Ceftriaxone Sodium/Sodium Chloride (Rocephin Inj/NS Inj) 100 ml @ 200 mls/hr Q12H IV Last administered on 02/15/17 09:44; Start 02/14/17 at 09:00 Atorvastatin Calcium (Lipitor) 10 mg HS PO Last administered on 02/14/17 22:49 ; Start 02/14/17 at 21:00 Digoxin (Lanoxin) 0.125 mg DAILY PO Last administered on 02/15/17 09:46; Start 02/14/17 at 09:00 Finasteride (Proscar) 5 mg DAILY PO Last administered on 02/15/17 09:47; Start 02/14/17 at 09:00 Fluticasone Propionate (Flonase Sánchez Spr) 1 spray DAILY EACH NARE Last administered on 02/15/17 09:43; Start 02/14/17 at 09:00 Folic Acid (Folate) 1 mg DAILY PO Last administered on 02/15/17 09:47; Start 02/14/17 at 09:00 Furosemide (Lasix) 40 mg BID PO Last administered on 02/15/17 09:47; Start 07/22 at 09:00 Gabapentin (Neurontin) 400 mg HS PO Last administered on 02/14/17 22:49; Start 02/14/17 at 21:00 Levetriacetam (Keppra) 500 mg BID PO Last administered on 02/15/17 09:46; Start 02/14/17 at 09:00 Rivaroxaban (Xarelto) 20 mg DAILY PO Last administered on 02/14/17 10:11; Start 02/14/17 at 09:00; Status Hold Sertraline HCl (Zoloft) 25 mg DAILY PO Last administered on 02/15/17 09:46; Start 02/14/17 at 09:00 Tamsulosin HCl (Flomax) 0.4 mg HS PO Last administered on 02/14/17 22:47; Start 02/14/17 at 21:00 Miscellaneous (Pill Splitter) 1 ea UNSCH PRN OTHER SEE LABEL COMMENTS Last administered on 02/14/17 22:46; Start 02/14/17 at 03:30 Diatrizoate Meglum/ Diatrizoate Sod ( Gastropia Liq) 18 ml ONCE ONCE PO Last administered on 02/14/17 15:26; Start 02/14/17 at 12:30; Stop 02/14/17 at 12:31; Status DC Enoxaparin Sodium (Lovenox Inj) 70 mg Q24H SQ ; Start 02/15/17 at 09:00; Stop at 09:00; Status DC Carbidopa/Levodopa (Sinemet 25-100 Mg) 0.5 tab Q12HR PO Last administered on 09:47; Start 02/14/17 at 21:00 Enoxaparin Sodium (Lovenox Inj) 70 mg Q12HR SQ Last administered on 02/15/17 09:46; Start 02/15/17 at 09:00 Iohexol (Omnipaque 350 Inj) 95 ml STK-MED ONCE IV Last administered on 18:37; Start 02/14/17 at 18:37; Stop 02/14/17 at 18:38; Status DC A/P Assessment and Plan 86 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 Dysphagia with weight loss -barium swallow with silent aspiration - GI consult appreciated. - ST following. - on liquid diet UTI suspected - UA c/w UTI - continue Ceftriaxone - urine culture is pending - await results and adjust treatment as indicated Confusion and aphasia: - -EEG; normal -neurology consult appreciated and started on Sinemet with the impression of Parkinson's disease -will consult PT DVT prophylaxis - hold Xarelto for possible EGD- continue lovenox Ari Ann MD Feb 15, 2017 10:02
--- NOTE | 2017-02-15 12:10 | HHI.GIFU ---
Subjective Remarks Resting in bed, lethargic. Denies pain. Son at bedside. D/W son and patient MBS results and ST's recommendations. D/W them further evaluation with EGD with possible dilatation if necessary and whether or not he is able to eat enough to meet his nutritional needs and discussed possible PEG tube placement if he is not able to eat enough. They do not want a feeding tube, but would like the EGD with possible dilatation. Objective Vitals I&O Vital Signs Date Time Temp Pulse Resp B/P Pulse Ox O2 Delivery O2 Flow Rate FiO2 02/15/17 07:49 97.4 62 18 92/53 99 02/14/17 20:51 98.5 59 18 134/78 97 02/14/17 20:11 60 02/14/17 16:37 97.7 60 18 115/63 95 02/14/17 16:00 60 02/14/17 12:00 60 Laboratory Date/Time Procedure Status Source Growth 02/13/17 19:40 Urine Culture - Preliminary Resulted Urine Catheterized Urine Gram Negative [facility] Last Impressions Modified Barium Swallow 02/14/17 0000 Signed Impressions: Service Date/Time: Tuesday, February 14, 2017 00:00 - CONCLUSION: Please refer to speech pathology report for complete discussion. Josué Canada MD Abdomen/Pelvis CT 02/14/17 0000 Signed Impressions: Service Date/Time: Tuesday, February 14, 2017 18:19 - CONCLUSION: Infrarenal abdominal aortic aneurysm 4.3 cm, slightly larger. Otherwise stable findings. Junito Adan MD FACR Head CT 02/13/17 1933 Signed Impressions: Service Date/Time: Monday, February 13, 2017 20:28 - CONCLUSION: 1. No acute intracranial abnormality. 2. 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 Juan Ramírez Jr., MD Physical Exam HEENT: Normocephalic; atraumatic; no jaundice CHEST: CTA, diminished CARDIAC: Irregular ABDOMEN: Soft, nondistended, nontender; no hepatosplenomegaly; bowel sounds are present in all four quadrants. EXTREMITIES: No clubbing, cyanosis, or edema. SKIN: Skin warm/dry MECHANICAL LABORATORY TECHNICIAN: Lethargic, oriented times three. Assessment and Plan Plan ASSESSMENT: - Dysphagia. Seems to be multifactorial. He does have a history of CVA and c/ o coughing with thin liquids, but also feels as if dry solids are getting caught in his upper esophagus. he does better with moist softer foods such as ice cream. He denies any hx of esophageal strictures. He had his CVA about 6 years ago and states that he was eating fine up until 3 months ago. Of note, he has been on Xarelto for atrial fibrillation and hx of DVT/CVA. S/P MBS ()----> silent aspiration with thin liquids, deep penetration at risk to aspirate with nectar thick liquids, tolerated liquids thickened to honey consistency, purees, and soft solids. Recommend mechanical soft with honey thickened liquids. D/W son and patient MBS results and ST's recommendations. D/W them further evaluation with EGD with possible dilatation if necessary and whether or not he is able to eat enough to meet his nutritional needs and discussed possible PEG tube placement if he is not able to eat enough. They do not want a feeding tube, but would like the EGD with possible dilatation. Will plan for EGD +/- Dilatation in am. - Abn. Weight Loss. Pt feels this is both related to decreased appetite and because of difficulty swallowing. He was doing well up until 3 months ago, when he developed decreased appetite and started having issues swallowing. He reports a 30-50 lb weight loss in 3 months. He has never had EGD/Colonoscopy. Abdomen/Pelvis CT (02/14/17)----> Infrarenal abdominal aortic aneurysm 4.3 cm, slightly larger. Otherwise stable findings. EGD in am. - ? Hemoccult (+) Stool. Pt has not seen blood n stool, but states that he was recently found to have blood on lab tests. Never had egd/colonoscopy. Will guiac stool - UTI, Cx GNR. Ceftrixaone. - Neurological changes/weakness. Dr. Jackson following, suspects parkinson's and was started on sinemet - Atrial fibrillation with hx of CVA, DVT. Xarelto on hold, on lovenox. - CAD, Hx Valvular heart disease, HTN, Hyperlipidemia. S/P Aortic valve replacement (tissue) and PPM. per attending PLAN: - Plan for egd +/- dilatation - Obtain consents - Mechanical soft diet with honey thickened liquids- d/w patient and son - NPO after MN - Hold lovenox after MN - PPI - ST - Hemoccult Stool x 3 - Monitor HH - Supportive care - Further recommendations to follow based on results of above - Pt seen and examined by Kumar and myself and this note is written on his behalf Aviva Lopez Feb 15, 2017 12:10
[2017-02-15] MEDS: GABAPENTIN 400 MG CAP PO SCH (21:40)
[2017-02-15] MEDS: ATORVASTATIN 10 MG TAB PO SCH (21:40)
[2017-02-15] MEDS: TAMSULOSIN HCL 0.4 MG CAP PO SCH (21:40)
--- NOTE | 2017-02-15 23:29 | HHI.PR ---
Review/Management Diagnosis Parkinsons disease Plan increase sinemet Diagnosis/Plan: Subjective Subjective Comments No acute events reported tolerates the sinemet well Active Medications Current Medications Medications (Trade) Dose Ordered Sig/Maria M Route Start Time Stop Time Status Last Admin (NS Flush) 2 ml BID IV FLUSH 02/14/17 09:00 02/15/17 21:00 IV Flush 2 ml 2 ml UNSCH PRN IV FLUSH 02/13/17 22:15 (Rocephin Inj/NS Inj) 100 ml @ 200 mls/hr Q12H IV 02/14/17 09:00 02/15/17 21:41 (Lipitor) 10 mg HS PO 02/14/17 21:00 02/15/17 21:40 (Lanoxin) 0.125 mg DAILY PO 02/14/17 09:00 02/15/17 09:46 (Proscar) 5 mg DAILY PO 02/14/17 09:00 02/15/17 09:47 (Flonase Sánchez Spr) 1 spray DAILY EACH NARE 02/14/17 09:00 02/15/17 09:43 (Folate) 1 mg DAILY PO 02/14/17 09:00 02/15/17 09:47 (Lasix) 40 mg BID PO 02/14/17 09:00 02/15/17 21:40 (Neurontin) 400 mg HS PO 02/14/17 21:00 02/15/17 21:40 (Keppra) 500 mg BID PO 02/14/17 09:00 02/15/17 21:40 (Xarelto) 20 mg DAILY PO 02/14/17 09:00 Hold 02/14/17 10:11 (Zoloft) 25 mg DAILY PO 02/14/17 09:00 02/15/17 09:46 (Flomax) 0.4 mg HS PO 02/14/17 21:00 02/15/17 21:40 (Pill Splitter) 1 ea UNSCH PRN OTHER 02/14/17 03:30 02/14/17 22:46 (Sinemet 25-100 Mg) 0.5 tab Q12HR PO 02/14/17 21:00 02/15/17 21:40 (Lovenox Inj) 70 mg Q12HR SQ 02/15/17 09:00 Future Hold 02/15/17 21:39 Allergies Allergies Coded Allergies No Known Allergies (Verified02/13/17) Exam I&O / VS Vital Signs Date Time Temp Pulse Resp B/P Pulse Ox O2 Delivery O2 Flow Rate FiO2 02/15/17 23:12 97.8 60 20 116/56 96 02/15/17 19:47 98.5 60 18 97/53 97 02/15/17 18:21 59 02/15/17 15:32 97.8 60 14 84/54 97 02/15/17 12:50 97.8 66 16 103/58 95 02/15/17 07:49 97.4 62 18 92/53 99 02/15/17 07:03 59 Exam Comments alert, speech hypophonic Cn intact motor--bradykinetic and cogwheel rigidity 5/5 bue Objective Micro and Labs Date/Time Procedure Status Source Growth 02/13/17 19:40 Urine Culture - Final Complete Urine Catheterized Urine Escherichia Coli Johan Jackson PhD Feb 15, 2017 23:29
[2017-02-16] VITALS (8 sets, daily range): BP systolic 103–112; BP diastolic 56–68; PULSE 59–77; RESP 18–21; TEMP 97.5–98.1; O2SAT 96–97
[2017-02-16] MEDS: CARBIDOPA/LEVODOPA 25 MG/100 MG TAB PO SCH ×3 (05:55→21:25)
[2017-02-16] MEDS: SODIUM CHLORIDE 0.9% FLUSH 5 ML FLUSH IV FLUSH SCH ×2 (09:00→21:00)
[2017-02-16] MEDS ORDERED: CIPR250T52 PO (09:48)
[2017-02-16] MEDS ORDERED: CARB25TA9 PO (09:48)
[2017-02-16] MEDS ORDERED: PROPOFOL 200 MG/20 ML AMP IV PUSH ONE (11:53)
--- NOTE | 2017-02-16 12:03 | HHI.GIFU ---
Subjective Remarks Immediate postop note: EGD with dilatation over guidewire with biopsy Indication: Dysphagia, wt loss Meds: MAC Findings: Esophagus: normal porximal, distal mild inflammation Dilated esophagus with 18mm Savary dilator over guidewire Stomach: mild gastritis Bx taken Duodenum: duodenitis in distal bulb Objective Vitals I&O Vital Signs Date Time Temp Pulse Resp B/P Pulse Ox O2 Delivery O2 Flow Rate FiO2 02/16/17 07:35 97.5 64 21 103/59 96 02/16/17 07:16 67 02/16/17 04:03 59 02/16/17 00:10 60 02/15/17 23:12 97.8 60 20 116/56 96 02/15/17 20:00 60 02/15/17 19:47 98.5 60 18 97/53 97 02/15/17 18:21 59 02/15/17 15:32 97.8 60 14 84/54 97 02/15/17 12:50 97.8 66 16 103/58 95 I/O 02/15/17 02/15/17 02/15/17 02/16/17 02/16/17 02/16/17 07:00 15:00 23:00 07:00 15:00 23:00 Intake Total 350 ml Balance 350 ml Intake Oral 250 ml IV Total 100 ml # Voids 3 Laboratory Date/Time Procedure Status Source Growth 02/13/17 19:40 Urine Culture - Final Complete Urine Catheterized Urine Escherichia Coli Physical Exam HEENT: Normocephalic; atraumatic; no jaundice CHEST: CTA, diminished CARDIAC: Irregular ABDOMEN: Soft, nondistended, nontender; no hepatosplenomegaly; bowel sounds are present in all four quadrants. EXTREMITIES: No clubbing, cyanosis, or edema. SKIN: Skin warm/dry DIKE SUPERVISOR: Lethargic, oriented times three. Assessment and Plan Plan ASSESSMENT: - Dysphagia. Seems to be multifactorial. He does have a history of CVA and c/ o coughing with thin liquids, but also feels as if dry solids are getting caught in his upper esophagus. he does better with moist softer foods such as ice cream. He denies any hx of esophageal strictures. He had his CVA about 6 years ago and states that he was eating fine up until 3 months ago. Of note, he has been on Xarelto for atrial fibrillation and hx of DVT/CVA. S/P MBS ()----> silent aspiration with thin liquids, deep penetration at risk to aspirate with nectar thick liquids, tolerated liquids thickened to honey consistency, purees, and soft solids. Recommend mechanical soft with honey thickened liquids. D/W son and patient MBS results and ST's recommendations. D/W them further evaluation with EGD with possible dilatation if necessary and whether or not he is able to eat enough to meet his nutritional needs and discussed possible PEG tube placement if he is not able to eat enough. They do not want a feeding tube, but would like the EGD with possible dilatation. Will plan for EGD +/- Dilatation in am. - Abn. Weight Loss. Pt feels this is both related to decreased appetite and because of difficulty swallowing. He was doing well up until 3 months ago, when he developed decreased appetite and started having issues swallowing. He reports a 30-50 lb weight loss in 3 months. He has never had EGD/Colonoscopy. Abdomen/Pelvis CT (02/14/17)----> Infrarenal abdominal aortic aneurysm 4.3 cm, slightly larger. Otherwise stable findings. EGD in am. - ? Hemoccult (+) Stool. Pt has not seen blood n stool, but states that he was recently found to have blood on lab tests. Never had egd/colonoscopy. Will guiac stool - UTI, Cx GNR. Ceftrixaone. - Neurological changes/weakness. Dr. Jackson following, suspects parkinson's and was started on sinemet - Atrial fibrillation with hx of CVA, DVT. Xarelto on hold, on lovenox. - CAD, Hx Valvular heart disease, HTN, Hyperlipidemia. S/P Aortic valve replacement (tissue) and PPM. per attending PLAN: - EGD with dilatation of esophagus and biopsy of stomach performed. No stricture seen. Gastro duodenitis seen. - Should consider doing colonoscopy - Mechanical soft diet with honey thickened liquids- d/w patient and son - restart lovenox - PPI - ST - Hemoccult Stool x 3 - Monitor HH - Supportive care Yohannes Heath MD Feb 16, 2017 12:03
--- NOTE | 2017-02-16 13:03 | HHI.FF ---
Face to Face Verification Diagnosis: (1) Dysphagia Physical Therapy Order: Evaluate and Treat Home Health Nursing Order: Medical education Signs/symptoms of disease process Medication education-adverse effect I have seen patient Johan Hair on 02/16/17. My clinical findings support the need for the requested home health care services because: Ltd mobility - disease progression I certify that my clinical findings support that this patient is homebound because: Unsteady gait/balance Ari Ann MD Feb 16, 2017 13:03
--- NOTE | 2017-02-16 13:10 | HHI.PR ---
Subjective Remarks in no acute distress. had EGD earlier. Objective Vitals Vital Signs Date Time Temp Pulse Resp B/P Pulse Ox O2 Delivery O2 Flow Rate FiO2 02/16/17 12:19 60 18 111/56 100 02/16/17 12:09 60 18 108/61 98 02/16/17 11:59 98.7 61 18 101/59 99 02/16/17 07:35 97.5 64 21 103/59 96 02/16/17 07:16 67 02/16/17 04:03 59 02/16/17 00:10 60 02/15/17 23:12 97.8 60 20 116/56 96 02/15/17 20:00 60 02/15/17 19:47 98.5 60 18 97/53 97 02/15/17 18:21 59 02/15/17 15:32 97.8 60 14 84/54 97 I/O 02/15/17 02/15/17 02/15/17 02/16/17 02/16/17 02/16/17 06:59 14:59 22:59 06:59 14:59 22:59 Intake Total 350 ml 100 ml Balance 350 ml 100 ml Intake Oral 250 ml IV Total 100 ml Other 100 ml # Voids 3 Result Diagram: 02/14/17 0733 02/14/17 0733 Imaging Last Impressions Modified Barium Swallow 02/14/17 0000 Signed Impressions: Service Date/Time: Tuesday, February 14, 2017 00:00 - CONCLUSION: Please refer to speech pathology report for complete discussion. Josué Canada MD Abdomen/Pelvis CT 02/14/17 0000 Signed Impressions: Service Date/Time: Tuesday, February 14, 2017 18:19 - CONCLUSION: Infrarenal abdominal aortic aneurysm 4.3 cm, slightly larger. Otherwise stable findings. Junito Adan MD FACR Head CT 02/13/17 1933 Signed Impressions: Service Date/Time: Monday, February 13, 2017 20:28 - CONCLUSION: 1. No acute intracranial abnormality. 2. 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 Juan Ramírez Jr., MD Objective Remarks GENERAL: elderly male, in no apparent distress. CARDIOVASCULAR: Regular rate and regular rhythm without murmurs, gallops, or rubs. RESPIRATORY: Clear to auscultation. Breath sounds equal bilaterally. No wheezes , rales, or rhonchi. GASTROINTESTINAL: Abdomen soft, non-tender, nondistended. Normal, active bowel sounds MUSCULOSKELETAL: Extremities without clubbing, cyanosis, or edema. NEURO: awake and alert Procedures EGD Medications and IVs Current Medications Sodium Chloride 2 ml 2 ml UNSCH PRN IVF FLUSH AFTER USING IV ACCESS; Start 06/22 at 19:45; Stop 02/13/17 at 22:13; Status DC Ceftriaxone Sodium/Sodium Chloride (Rocephin Inj/NS Inj) 100 ml @ 200 mls/hr ONCE ONCE IV Last administered on 02/13/17 21:15; Start 02/13/17 at 21:15; Stop 02/13/17 at 21:44; Status DC IV Flush (NS Flush) 2 ml BID IV FLUSH Last administered on 02/15/17 21:00; Start 02/14/17 at 09:00 IV Flush 2 ml 2 ml UNSCH PRN IV FLUSH FLUSH AFTER USING IV ACCESS; Start at 22:15 Ceftriaxone Sodium/Sodium Chloride (Rocephin Inj/NS Inj) 100 ml @ 200 mls/hr Q12H IV Last administered on 02/15/17 21:41; Start 02/14/17 at 09:00 Atorvastatin Calcium (Lipitor) 10 mg HS PO Last administered on 02/15/17 21:40 ; Start 02/14/17 at 21:00 Digoxin (Lanoxin) 0.125 mg DAILY PO Last administered on 02/15/17 09:46; Start 02/14/17 at 09:00 Finasteride (Proscar) 5 mg DAILY PO Last administered on 02/15/17 09:47; Start 02/14/17 at 09:00 Fluticasone Propionate (Flonase Sánchez Spr) 1 spray DAILY EACH NARE Last administered on 02/15/17 09:43; Start 02/14/17 at 09:00 Folic Acid (Folate) 1 mg DAILY PO Last administered on 02/15/17 09:47; Start 02/14/17 at 09:00 Furosemide (Lasix) 40 mg BID PO Last administered on 02/15/17 21:40; Start 07/22 at 09:00 Gabapentin (Neurontin) 400 mg HS PO Last administered on 02/15/17 21:40; Start 02/14/17 at 21:00 Levetriacetam (Keppra) 500 mg BID PO Last administered on 02/15/17 21:40; Start 02/14/17 at 09:00 Rivaroxaban (Xarelto) 20 mg DAILY PO Last administered on 02/14/17 10:11; Start 02/14/17 at 09:00; Status Hold Sertraline HCl (Zoloft) 25 mg DAILY PO Last administered on 02/15/17 09:46; Start 02/14/17 at 09:00 Tamsulosin HCl (Flomax) 0.4 mg HS PO Last administered on 02/15/17 21:40; Start 02/14/17 at 21:00 Miscellaneous (Pill Splitter) 1 ea UNSCH PRN OTHER SEE LABEL COMMENTS Last administered on 02/14/17 22:46; Start 02/14/17 at 03:30 Diatrizoate Meglum/ Diatrizoate Sod ( Gastroview Liq) 18 ml ONCE ONCE PO Last administered on 02/14/17 15:26; Start 02/14/17 at 12:30; Stop 02/14/17 at 12:31; Status DC Enoxaparin Sodium (Lovenox Inj) 70 mg Q24H SQ ; Start 02/15/17 at 09:00; Stop at 09:00; Status DC Carbidopa/Levodopa (Sinemet 25-100 Mg) 0.5 tab Q12HR PO Last administered on 21:40; Start 02/14/17 at 21:00; Stop 02/15/17 at 23:30; Status DC Enoxaparin Sodium (Lovenox Inj) 70 mg Q12HR SQ Last administered on 02/15/17 21:39; Start 02/15/17 at 09:00; Status Hold Iohexol (Omnipaque 350 Inj) 95 ml STK-MED ONCE IV Last administered on 18:37; Start 02/14/17 at 18:37; Stop 02/14/17 at 18:38; Status DC Carbidopa/Levodopa (Sinemet 25-100 Mg) 1 tab Q8HR PO Last administered on 7/14/ 17at 05:55; Start 02/16/17 at 06:00 Propofol (Diprivan 200 Mg/20 ml Inj) 100 mg STK-MED ONCE IV PUSH ; Start at 11:53; Stop 02/16/17 at 11:54; Status DC A/P Assessment and Plan 86 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 Dysphagia with weight loss -barium swallow with silent aspiration - GI consult appreciated; s/p EGD with dilatation of esophagus - ST following. UTI with e-coli - UA c/w UTI - continue antibiotic abdominal aortic aneurysm- f/u as outpatient Confusion and aphasia: - -EEG; normal -neurology consult appreciated and started on Sinemet with the impression of Parkinson's disease -consulted PT DVT prophylaxis - resume Xarelto if ok with GI Discharge Planning dc to SNF . f/u; pcp, neurology and GI. see med list. d/w the patient and RN. time spent 32 min. Ari Ann MD Feb 16, 2017 13:10
--- NOTE | 2017-02-16 13:11 | HHI.DS ---
Discharge Summary Admission Date Feb 13, 2017 at 22:09 Discharge Date: Feb 16, 2017 Admitting Diagnosis NEURO SYMPTOMS, UTI (1) Dysphagia ICD Code: R13.10 Diagnosis: Principal (2) Weight loss ICD Code: R63.4 Diagnosis: Principal (3) Urinary tract infection ICD Code: N39.0 Diagnosis: Secondary (4) Altered mental status ICD Code: R41.82 Diagnosis: Secondary (5) Aphasia ICD Code: R47.01 Diagnosis: Secondary Procedures EGD Brief History - From Admission He reports difficultly speaking and swallowing. He coughs after eating "enough to break it up". He denies difficulty with liquids but reports problems with meats and firm solids. Symptoms present for about 2-3 months. He says he is losing weight and believes he has lost 50 pounds over the past year. Denies aphasia. He says his oldest son brought him here. He usually ambulates with a walker. Denies fever, n/v/d, dysuria, black stool, red stool, dysuria, falls, syncope, or dizziness. . CBC/BMP: 02/14/17 0733 02/14/17 0733 Significant Findings Laboratory Tests Test 02/13/17 02/14/17 19:40 07:33 Prothrombin Time 12.8 SEC (9.8-11.6) Activated Partial 34.8 SEC Thromboplast Time (24.3-30.1) Carbon Dioxide Level 19.2 MEQ/L (21.0-32.0) Blood Urea Nitrogen 32 MG/DL (7-18) 30 MG/DL (7-18) Estimat Glomerular Filtration 53 ML/MIN (>89) Rate Random Glucose 108 MG/DL (74-106) Alkaline Phosphatase 202 U/L (45-117) Albumin 2.8 GM/DL (3.4-5.0) Neutrophils (%) (Auto) 81.8 % (16.0-70.0) Monocytes (%) (Auto) 8.1 % (0.0-8.0) 13.0 % (0.0-8.0) Lymphocytes # (Auto) 0.8 TH/MM3 (1.0-4.8) Urine Turbidity CLOUDY (CLEAR) Urine Protein 30 mg/dL (NEG-TRACE) Urine Occult Blood SMALL (NEG) Urine Nitrite POS (NEG) Urine Leukocyte Esterase LARGE (NEG) Urine RBC 66 /hpf (0-3) Urine WBC Clumps FEW (NONE) Urine Bacteria MANY /hpf (NONE) Urine Mucus FEW /lpf (OCC) Calcium Level 8.3 MG/DL (8.5-10.1) Cholesterol Level 101 MG/DL (120-200) HDL Cholesterol 37.3 MG/DL (40.0-60.0) Imaging Last Impressions Modified Barium Swallow 02/14/17 0000 Signed Impressions: Service Date/Time: Tuesday, February 14, 2017 00:00 - CONCLUSION: Please refer to speech pathology report for complete discussion. Josué Canada MD Abdomen/Pelvis CT 02/14/17 0000 Signed Impressions: Service Date/Time: Tuesday, February 14, 2017 18:19 - CONCLUSION: Infrarenal abdominal aortic aneurysm 4.3 cm, slightly larger. Otherwise stable findings. Junito Adan MD FACR Head CT 02/13/17 1933 Signed Impressions: Service Date/Time: Monday, February 13, 2017 20:28 - CONCLUSION: 1. No acute intracranial abnormality. 2. 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 Juan Ramírez Jr., MD PE at Discharge GENERAL: elderly male, in no apparent distress. CARDIOVASCULAR: Regular rate and regular rhythm without murmurs, gallops, or rubs. RESPIRATORY: Clear to auscultation. Breath sounds equal bilaterally. No wheezes , rales, or rhonchi. GASTROINTESTINAL: Abdomen soft, non-tender, nondistended. Normal, active bowel sounds MUSCULOSKELETAL: Extremities without clubbing, cyanosis, or edema. NEURO: awake and alert Hospital Course Dysphagia with weight loss -barium swallow with silent aspiration - GI consult appreciated; s/p EGD with dilatation of esophagus - ST following. UTI with e-coli - UA c/w UTI - continue antibiotic abdominal aortic aneurysm- f/u as outpatient Confusion and aphasia: - -EEG; normal -neurology consult appreciated and started on Sinemet with the impression of Parkinson's disease -consulted PT Pt Condition on Discharge: Fair Discharge Disposition: Discharge to SNF Discharge Time: > 30 minutes Discharge Instructions DIET: Follow Instructions for: Heart Healthy Diet Activities you can perform: Regular-No Restrictions Follow up Referrals: Gastroenterology Neurology PCP Follow-up New Medications: Ciprofloxacin (Cipro) 250 Mg Tab 250 MG PO BID Infection Days 3 Ref 0 TAB Carbidopa-Levodopa (Carbidopa-Levodopa) 25-100 Mg Tab 1 TAB PO Q8HR parkinson's Days 30 Ref 0 TAB Continued Medications: Atorvastatin (Atorvastatin) 10 Mg Tab 10 MG PO HS Cholesterol Management #30 Ref 0 TAB Cyanocobalamin (Vitamin B-12) 1,000 Mcg Subl 1000 MCG SL DAILY Nutritional Supplement Ref 0 TAB.SL Digoxin (Digoxin) 0.125 Mg Tab 0.125 MG PO DAILY Regulate Heart Beat #30 Ref 0 TAB Donepezil (Aricept) 5 Mg Tab 5 MG PO HS Dementia #30 Ref 0 TAB Finasteride (Proscar) 5 Mg Tab 5 MG PO DAILY Do not crush. Manage Prostate Problems #30 Ref 0 TAB Fluticasone Nasal [place] (Flonase Allergy Relief Children Nasal [place]) 50 Mcg/ Act [place] 1 SPRAY EACH NARE DAILY 50 mcg/spray Allergy Management #1 Ref 0 BOTTLE Folic Acid (Folic Acid) 800 Mcg Tab 1 MG PO DAILY Nutritional Supplement Ref 0 TAB Furosemide (Furosemide) 40 Mg Tab 40 MG PO BID #60 Ref 0 TAB Gabapentin (Gabapentin) 400 Mg Cap 400 CAP PO HS #30 Ref 0 CAP Levetiracetam (Levetiracetam) 500 Mg Tab 500 MG PO BID Control Seizures #60 Ref 0 TAB Potassium Chloride ER (Potassium Chloride ER) 20 Meq Tab 20 MEQ PO BID Electrolyte Replacement #60 Ref 0 TAB Rivaroxaban (Xarelto) 20 Mg Tab 20 MG PO DAILY Blood Clot Prevention Ref 0 TAB Sertraline (Sertraline) 50 Mg Tab 25 MG PO DAILY #30 Ref 0 TAB Tamsulosin (Flomax) 0.4 Mg Cap 0.4 MG PO HS Manage Prostate Problems #30 Ref 0 CAP Discontinued Medications: Levofloxacin (Levaquin) 250 Mg Tab 250 MG PO DAILY Infection Days 5 Ref 0 TAB Ari Ann MD Feb 16, 2017 13:11
[2017-02-16] MEDS: cefTRIAXone INJ 1,000 MG in SODIUM CHLORIDE 0.9% INJ 100 ML IV SCH ×2 (13:36→21:27)
[2017-02-16] MEDS: FOLIC ACID 1 MG TAB PO SCH (13:40)
[2017-02-16] MEDS: levETIRAcetam 500 MG TAB PO SCH ×2 (13:40→21:25)
[2017-02-16] MEDS: FINASTERIDE 5 MG TAB PO SCH (13:40)
[2017-02-16] MEDS: FUROSEMIDE 40 MG TAB PO SCH ×2 (13:40→21:24)
[2017-02-16] MEDS: FLUTICASONE PROPIONATE 50 MCG/ACT 16 GM NASAL SPRAY EACH NARE SCH (13:41)
[2017-02-16] MEDS: DIGOXIN 0.125 MG TAB PO SCH (13:41)
[2017-02-16] MEDS: SERTRALINE HCL 50 MG TAB PO SCH (13:41)
[2017-02-16] MEDS: TAMSULOSIN HCL 0.4 MG CAP PO SCH (21:24)
[2017-02-16] MEDS: ATORVASTATIN 10 MG TAB PO SCH (21:25)
[2017-02-16] MEDS: GABAPENTIN 400 MG CAP PO SCH (21:25)
--- NOTE | 2017-02-16 21:30 | MR ---
cc: NELSON ANN MD, HAROLD H. JR. MD DATE: 02/16/2017. PROCEDURE PERFORMED: Esophagogastroduodenoscopy with dilatation of the esophagus over a guidewire with biopsy. INDICATIONS FOR THE PROCEDURE: Dysphagia and weight loss. REFERRING PHYSICIAN: Dr. Ann. DESCRIPTION OF THE PROCEDURE IN DETAIL: After informed consent was obtained, the patient was placed in the left side down position. He was sedated by the anesthesia service. After adequate sedation was achieved, the Pentax video gastroscope was inserted in the oropharynx and advanced to the esophagus, stomach and duodenum and it was then slowly withdrawn examining the mucosal surfaces carefully. Biopsies were obtained in the gastric antrum and also separately a biopsy was obtained from the duodenal bulb. The scope was retroflexed in the fundus and cardia. The scope was then straightened and a guidewire was left in place in the gastric antrum. As the scope was slowly withdrawn over the guidewire, an 18 mm Savary dilator was passed down through the esophagus into the stomach. It was then removed along with the guidewire. The scope was then reinserted and a re-look examination showed no evidence of blood in the proximal or distal esophagus and no complication. The scope was then withdrawn slowly through the esophagus and the procedure was terminated. He tolerated the procedure well and was returned to the recovery area in good condition. FINDINGS: 1. The esophagus showed normal proximal and the distal esophagus showed some mild inflammation. 2. The esophagus was dilated with 18 mm Savary dilator over a guidewire. A re-look examination showed no evidence of complication. 3. In the stomach, there was mild gastritis and a biopsy was taken. 4. The duodenum showed duodenitis in the distal bulb. Biopsy was taken. IMPRESSION: 1. Dysphagia. 2. Gastroduodenitis. 3. Weight loss and heme-positive stool. RECOMMENDATIONS: 1. The patient probably should have a colonoscopy. 2. He may resume his usual diet. 3. We will continue to follow up with you in the hospital. Yohannes Heath MD [facility] /12:23 PM /9:25 PM
[2017-02-17] VITALS (11 sets, daily range): BP systolic 86–113; BP diastolic 40–63; PULSE 59–64; RESP 16–18; TEMP 97.3–97.8; O2SAT 94–97
[2017-02-17] MEDS: CARBIDOPA/LEVODOPA 25 MG/100 MG TAB PO SCH ×3 (05:53→22:02)
[2017-02-17] MEDS: SODIUM CHLORIDE 0.9% FLUSH 5 ML FLUSH IV FLUSH SCH ×2 (09:00→21:00)
[2017-02-17] MEDS: DIGOXIN 0.125 MG TAB PO SCH (09:22)
[2017-02-17] MEDS: FINASTERIDE 5 MG TAB PO SCH (09:22)
[2017-02-17] MEDS: SERTRALINE HCL 50 MG TAB PO SCH (09:22)
[2017-02-17] MEDS: cefTRIAXone INJ 1,000 MG in SODIUM CHLORIDE 0.9% INJ 100 ML IV SCH (09:22)
[2017-02-17] MEDS: FOLIC ACID 1 MG TAB PO SCH (09:22)
[2017-02-17] MEDS: levETIRAcetam 500 MG TAB PO SCH ×2 (09:22→22:01)
[2017-02-17] MEDS: FUROSEMIDE 40 MG TAB PO SCH ×2 (09:22→21:00)
[2017-02-17] MEDS: FLUTICASONE PROPIONATE 50 MCG/ACT 16 GM NASAL SPRAY EACH NARE SCH (09:23)
--- NOTE | 2017-02-17 09:58 | HHI.PR ---
Subjective Remarks in no acute distress. d/w the RN and no acute issues over night. Objective Vitals Vital Signs Date Time Temp Pulse Resp B/P Pulse Ox O2 Delivery O2 Flow Rate FiO2 02/17/17 07:44 97.5 61 16 86/40 95 02/17/17 07:01 63 02/17/17 04:05 59 02/17/17 00:09 60 02/16/17 23:35 98.1 77 18 112/68 97 02/16/17 20:23 59 02/16/17 18:23 59 02/16/17 16:05 97.5 65 20 103/56 97 02/16/17 12:19 60 18 111/56 100 02/16/17 12:09 60 18 108/61 98 02/16/17 11:59 98.7 61 18 101/59 99 I/O 02/16/17 02/16/17 02/16/17 02/17/17 02/17/17 02/17/17 07:00 15:00 23:00 07:00 15:00 23:00 Intake Total 350 ml 100 ml 580 ml Balance 350 ml 100 ml 580 ml Intake Oral 250 ml 480 ml IV Total 100 ml 100 ml Other 100 ml # Voids 3 1 Result Diagram: 02/14/17 0733 02/14/17 0733 Imaging Last Impressions Modified Barium Swallow 02/14/17 0000 Signed Impressions: Service Date/Time: Tuesday, February 14, 2017 00:00 - CONCLUSION: Please refer to speech pathology report for complete discussion. Josué Canada MD Abdomen/Pelvis CT 02/14/17 0000 Signed Impressions: Service Date/Time: Tuesday, February 14, 2017 18:19 - CONCLUSION: Infrarenal abdominal aortic aneurysm 4.3 cm, slightly larger. Otherwise stable findings. Junito Adan MD FACR Head CT 02/13/17 1933 Signed Impressions: Service Date/Time: Monday, February 13, 2017 20:28 - CONCLUSION: 1. No acute intracranial abnormality. 2. 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 Juan Ramírez Jr., MD Objective Remarks GENERAL: elderly male, in no apparent distress. CARDIOVASCULAR: Regular rate and regular rhythm without murmurs, gallops, or rubs. RESPIRATORY: Clear to auscultation. Breath sounds equal bilaterally. No wheezes , rales, or rhonchi. GASTROINTESTINAL: Abdomen soft, non-tender, nondistended. Normal, active bowel sounds MUSCULOSKELETAL: Extremities without clubbing, cyanosis, or edema. NEURO: awake and alert Procedures EGD Medications and IVs Current Medications Sodium Chloride 2 ml 2 ml UNSCH PRN IVF FLUSH AFTER USING IV ACCESS; Start 06/22 at 19:45; Stop 02/13/17 at 22:13; Status DC Ceftriaxone Sodium/Sodium Chloride (Rocephin Inj/NS Inj) 100 ml @ 200 mls/hr ONCE ONCE IV Last administered on 02/13/17 21:15; Start 02/13/17 at 21:15; Stop 02/13/17 at 21:44; Status DC IV Flush (NS Flush) 2 ml BID IV FLUSH Last administered on 02/17/17 09:00; Start 02/14/17 at 09:00 IV Flush 2 ml 2 ml UNSCH PRN IV FLUSH FLUSH AFTER USING IV ACCESS; Start at 22:15 Ceftriaxone Sodium/Sodium Chloride (Rocephin Inj/NS Inj) 100 ml @ 200 mls/hr Q12H IV Last administered on 02/17/17 09:22; Start 02/14/17 at 09:00 Atorvastatin Calcium (Lipitor) 10 mg HS PO Last administered on 02/16/17 21:25 ; Start 02/14/17 at 21:00 Digoxin (Lanoxin) 0.125 mg DAILY PO Last administered on 02/17/17 09:22; Start 02/14/17 at 09:00 Finasteride (Proscar) 5 mg DAILY PO Last administered on 02/17/17 09:22; Start 02/14/17 at 09:00 Fluticasone Propionate (Flonase Sánchez Spr) 1 spray DAILY EACH NARE Last administered on 02/17/17 09:23; Start 02/14/17 at 09:00 Folic Acid (Folate) 1 mg DAILY PO Last administered on 02/17/17 09:22; Start 02/14/17 at 09:00 Furosemide (Lasix) 40 mg BID PO Last administered on 02/17/17 09:22; Start 07/22 at 09:00 Gabapentin (Neurontin) 400 mg HS PO Last administered on 02/16/17 21:25; Start 02/14/17 at 21:00 Levetriacetam (Keppra) 500 mg BID PO Last administered on 02/17/17 09:22; Start 02/14/17 at 09:00 Rivaroxaban (Xarelto) 20 mg DAILY PO Last administered on 02/14/17 10:11; Start 02/14/17 at 09:00; Status Hold Sertraline HCl (Zoloft) 25 mg DAILY PO Last administered on 02/17/17 09:22; Start 02/14/17 at 09:00 Tamsulosin HCl (Flomax) 0.4 mg HS PO Last administered on 02/16/17 21:24; Start 02/14/17 at 21:00 Miscellaneous (Pill Splitter) 1 ea UNSCH PRN OTHER SEE LABEL COMMENTS Last administered on 02/14/17 22:46; Start 02/14/17 at 03:30 Diatrizoate Meglum/ Diatrizoate Sod ( Gastroview Liq) 18 ml ONCE ONCE PO Last administered on 02/14/17 15:26; Start 02/14/17 at 12:30; Stop 02/14/17 at 12:31; Status DC Enoxaparin Sodium (Lovenox Inj) 70 mg Q24H SQ ; Start 02/15/17 at 09:00; Stop at 09:00; Status DC Carbidopa/Levodopa (Sinemet 25-100 Mg) 0.5 tab Q12HR PO Last administered on 21:40; Start 02/14/17 at 21:00; Stop 02/15/17 at 23:30; Status DC Enoxaparin Sodium (Lovenox Inj) 70 mg Q12HR SQ Last administered on 02/15/17 21:39; Start 02/15/17 at 09:00; Status Hold Iohexol (Omnipaque 350 Inj) 95 ml STK-MED ONCE IV Last administered on 18:37; Start 02/14/17 at 18:37; Stop 02/14/17 at 18:38; Status DC Carbidopa/Levodopa (Sinemet 25-100 Mg) 1 tab Q8HR PO Last administered on 7/15/ 17at 05:53; Start 02/16/17 at 06:00 Propofol (Diprivan 200 Mg/20 ml Inj) 100 mg STK-MED ONCE IV PUSH ; Start at 11:53; Stop 02/16/17 at 11:54; Status DC A/P Assessment and Plan 86 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 Dysphagia with weight loss -barium swallow with silent aspiration - GI consult appreciated; s/p EGD with dilatation of esophagus - ST following. UTI with e-coli - UA c/w UTI - continue antibiotic abdominal aortic aneurysm- f/u as outpatient- this was d/w the patient's son who 's already aware of the finding. Confusion and aphasia: - -EEG; normal -neurology consult appreciated and started on Sinemet with the impression of Parkinson's disease -consulted PT DVT prophylaxis - resume Xarelto upon discharge. Discharge Planning dc to SNF after seen by ST and when arrangements made. f/u; pcp, neurology and GI. see med list. d/w the patient and RN. d/w the patient's son. d/w the case management. time spent 32 min. Ari Ann MD Feb 17, 2017 09:58
[2017-02-17] MEDS: GABAPENTIN 400 MG CAP PO SCH (22:01)
[2017-02-17] MEDS: ATORVASTATIN 10 MG TAB PO SCH (22:01)
[2017-02-17] MEDS: TAMSULOSIN HCL 0.4 MG CAP PO SCH (22:02)
[2017-02-17] MEDS: CIPROFLOXACIN 250 MG TAB PO SCH (22:02)
[2017-02-18] VITALS (10 sets, daily range): BP systolic 100–139; BP diastolic 59–75; PULSE 56–62; RESP 16–26; TEMP 95.9–97.9; O2SAT 94–97
[2017-02-18] MEDS: CARBIDOPA/LEVODOPA 25 MG/100 MG TAB PO SCH ×3 (05:48→22:24)
--- NOTE | 2017-02-18 08:28 | HHI.PR ---
Subjective Remarks Follow up for dysphagia, UTI, confusion. The patient is awake, alert, oriented to person and hospital today. He denies any medical complaints. He states he ate dinner last night, denies any dysphagia/odynophagia. Vital signs reviewed and stable. Objective Vitals Vital Signs Date Time Temp Pulse Resp B/P Pulse Ox O2 Delivery O2 Flow Rate FiO2 02/18/17 07:58 97.7 56 16 102/60 94 02/18/17 04:04 59 02/18/17 03:58 97.7 60 18 105/60 95 02/18/17 00:30 97.4 60 18 102/62 94 02/18/17 00:03 59 02/17/17 20:49 97.3 60 17 96/53 97 02/17/17 20:03 59 02/17/17 17:25 97.8 60 18 105/58 95 02/17/17 15:01 64 02/17/17 13:30 97.5 61 18 109/56 94 02/17/17 11:00 59 02/17/17 09:53 62 113/63 I/O 02/17/17 02/17/17 02/17/17 02/18/17 02/18/17 02/18/17 07:00 15:00 23:00 07:00 15:00 23:00 Intake Total 580 ml Balance 580 ml Intake Oral 480 ml IV Total 100 ml # Voids 1 Result Diagram: 02/14/17 0733 02/14/17 0733 Imaging Last Impressions Modified Barium Swallow 02/14/17 0000 Signed Impressions: Service Date/Time: Tuesday, February 14, 2017 00:00 - CONCLUSION: Please refer to speech pathology report for complete discussion. Josué Canada MD Abdomen/Pelvis CT 02/14/17 0000 Signed Impressions: Service Date/Time: Tuesday, February 14, 2017 18:19 - CONCLUSION: Infrarenal abdominal aortic aneurysm 4.3 cm, slightly larger. Otherwise stable findings. Junito Adan MD FACR Head CT 02/13/17 1933 Signed Impressions: Service Date/Time: Monday, February 13, 2017 20:28 - CONCLUSION: 1. No acute intracranial abnormality. 2. 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 Juan Ramírez Jr., MD Objective Remarks GENERAL: Elderly male patient in NAD. SKIN: Warm and dry. No rash. HEENT: Normocephalic. Atraumatic. Mucous membranes pink and moist. NECK: Supple. Trachea midline. CARDIOVASCULAR: Irregular rate and rhythm. S1, S2 noted. No murmur appreciated. RESPIRATORY: No accessory muscle use. Clear to auscultation. Breath sounds equal bilaterally. GASTROINTESTINAL: Abdomen soft, non-tender, nondistended. Normoactive bowel sounds x4. MUSCULOSKELETAL: No obvious deformities. Extremities without clubbing, cyanosis , or edema. NEUROLOGICAL: Awake and alert. No obvious cranial nerve deficits. Motor grossly within normal limits. Normal speech. PSYCHIATRIC: Appropriate mood and affect; insight and judgment limited. Procedures EGD 02/16/[address] Heath: FINDINGS: 1. The esophagus showed normal proximal and the distal esophagus showed some mild inflammation. 2. The esophagus was dilated with 18 mm Savary dilator over a guidewire. A re-look examination showed no evidence of complication. 3. In the stomach, there was mild gastritis and a biopsy was taken. 4. The duodenum showed duodenitis in the distal bulb. Biopsy was taken. IMPRESSION: 1. Dysphagia. 2. Gastroduodenitis. 3. Weight loss and heme-positive stool. Medications and IVs Current Medications Medications (Trade) Dose Ordered Sig/Maria M Route Start Time Stop Time Status Last Admin (NS Flush) 2 ml BID IV FLUSH 02/14/17 09:00 02/17/17 21:00 (NS Flush) 2 ml UNSCH PRN IV FLUSH 02/13/17 22:15 (Lipitor) 10 mg HS PO 02/14/17 21:00 02/17/17 22:01 (Lanoxin) 0.125 mg DAILY PO 02/14/17 09:00 02/17/17 09:22 (Proscar) 5 mg DAILY PO 02/14/17 09:00 02/17/17 09:22 (Flonase Sánchez Spr) 1 spray DAILY EACH NARE 02/14/17 09:00 02/17/17 09:23 (Folate) 1 mg DAILY PO 02/14/17 09:00 02/17/17 09:22 (Lasix) 40 mg BID PO 02/14/17 09:00 02/17/17 09:22 (Neurontin) 400 mg HS PO 02/14/17 21:00 02/17/17 22:01 (Keppra) 500 mg BID PO 02/14/17 09:00 02/17/17 22:01 (Xarelto) 20 mg DAILY PO 02/14/17 09:00 Hold 02/14/17 10:11 (Zoloft) 25 mg DAILY PO 02/14/17 09:00 02/17/17 09:22 (Flomax) 0.4 mg HS PO 02/14/17 21:00 02/17/17 22:02 (Pill Splitter) 1 ea UNSCH PRN OTHER 02/14/17 03:30 02/14/17 22:46 (Lovenox Inj) 70 mg Q12HR SQ 02/15/17 09:00 Hold 02/15/17 21:39 (Sinemet 25-100 Mg) 1 tab Q8HR PO 02/16/17 06:00 02/18/17 05:48 (Cipro) 250 mg Q12HR PO 02/17/17 21:00 02/17/17 22:02 A/P Problem List: (1) Dysphagia ICD Code: R13.10 Status: Acute (2) Weight loss ICD Code: R63.4 Status: Acute (3) Urinary tract infection ICD Code: N39.0 Status: Acute (4) Altered mental status ICD Code: R41.82 Status: Acute (5) Aphasia ICD Code: R47.01 Status: Acute Assessment and Plan 86 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 Dysphagia with weight loss -barium swallow with silent aspiration - GI consult appreciated; s/p EGD with dilatation of esophagus - ST following, started on mechanical soft diet, chopped meat with gravy, and honey thickened liquids. UTI with e-coli - UA c/w UTI, urine culture with E. coli, resistant to bactrim - changed IV Rocephin to Cipro po Abdominal aortic aneurysm - f/u as outpatient- this was d/w the patient's son who's already aware of the finding. Confusion and aphasia: -EEG; normal -neurology consult appreciated and started on Sinemet with the impression of Parkinson's disease -consulted PT, needs rehab DVT prophylaxis - resume Xarelto upon discharge. Discharge Planning Awaiting acceptance to SNF. Patient stable for discharge to SNF once arrangements made. Problem Qualifiers (1) Urinary tract infection: Qualified Code: N39.0 - Urinary tract infection with hematuria, site unspecified (2) Altered mental status: Qualified Code: R41.0 - Delirium Hemalatha Hanson PA-C Feb 18, 2017 8:28 am
[2017-02-18] MEDS: SODIUM CHLORIDE 0.9% FLUSH 5 ML FLUSH IV FLUSH SCH ×2 (09:00→21:00)
[2017-02-18] MEDS: DIGOXIN 0.125 MG TAB PO SCH ×2 (09:00→10:07)
[2017-02-18] MEDS: levETIRAcetam 500 MG TAB PO SCH ×2 (10:07→22:24)
[2017-02-18] MEDS: FUROSEMIDE 40 MG TAB PO SCH ×2 (10:07→22:25)
[2017-02-18] MEDS: FINASTERIDE 5 MG TAB PO SCH (10:08)
[2017-02-18] MEDS: SERTRALINE HCL 50 MG TAB PO SCH (10:08)
[2017-02-18] MEDS: FOLIC ACID 1 MG TAB PO SCH (10:08)
[2017-02-18] MEDS: CIPROFLOXACIN 250 MG TAB PO SCH ×2 (10:08→22:24)
[2017-02-18] MEDS: FLUTICASONE PROPIONATE 50 MCG/ACT 16 GM NASAL SPRAY EACH NARE SCH (10:09)
[2017-02-18] MEDS: GABAPENTIN 400 MG CAP PO SCH (22:24)
[2017-02-18] MEDS: ATORVASTATIN 10 MG TAB PO SCH (22:25)
[2017-02-18] MEDS: TAMSULOSIN HCL 0.4 MG CAP PO SCH (22:25)
[2017-02-19] VITALS (8 sets, daily range): BP systolic 97–113; BP diastolic 56–65; PULSE 59–63; RESP 16–20; TEMP 97.4–97.9; O2SAT 96–98
[2017-02-19] MEDS: CARBIDOPA/LEVODOPA 25 MG/100 MG TAB PO SCH ×2 (05:41→14:30)
[2017-02-19] MEDS: SODIUM CHLORIDE 0.9% FLUSH 5 ML FLUSH IV FLUSH SCH (09:00)
--- NOTE | 2017-02-19 11:05 | HHI.PR ---
Subjective Remarks Follow up for dysphagia, UTI, confusion. The patient is sleeping upon my arrival , easily awakens to voice. He had a choking episode yesterday after a family member gave him some pineapple, he initially felt the pineapple stuck in the back of his throat, however now it has passed and he has been able to tolerate oral intake. Otherwise the patient has no other medical complaints. Awaiting acceptance to rehab. Objective Vitals Vital Signs Date Time Temp Pulse Resp B/P Pulse Ox O2 Delivery O2 Flow Rate FiO2 02/19/17 08:05 97.9 60 16 97/56 96 02/19/17 04:00 97.4 60 17 101/59 97 02/19/17 03:11 60 02/19/17 00:00 97.7 59 18 113/65 98 02/19/17 00:00 59 02/18/17 20:00 59 02/18/17 20:00 95.9 62 17 139/75 97 02/18/17 17:06 62 26 123/61 95 02/18/17 16:00 97.9 60 18 100/59 94 02/18/17 11:22 97.4 57 18 101/64 94 Result Diagram: 02/13/17 1940 Imaging Last Impressions Modified Barium Swallow 02/14/17 0000 Signed Impressions: Service Date/Time: Tuesday, February 14, 2017 00:00 - CONCLUSION: Please refer to speech pathology report for complete discussion. Josué Canada MD Abdomen/Pelvis CT 02/14/17 0000 Signed Impressions: Service Date/Time: Tuesday, February 14, 2017 18:19 - CONCLUSION: Infrarenal abdominal aortic aneurysm 4.3 cm, slightly larger. Otherwise stable findings. Junito Adan MD FACR Head CT 02/13/17 1933 Signed Impressions: Service Date/Time: Monday, February 13, 2017 20:28 - CONCLUSION: 1. No acute intracranial abnormality. 2. 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 Juan Ramírez Jr., MD Objective Remarks GENERAL: Pleasant elderly male patient in NAD. SKIN: Warm and dry. No rash. HEENT: Normocephalic. Atraumatic. Mucous membranes pink and moist. NECK: Supple. Trachea midline. CARDIOVASCULAR: Irregular rate and rhythm. S1, S2 noted. No murmur appreciated. RESPIRATORY: No accessory muscle use. Clear to auscultation. Breath sounds equal bilaterally. GASTROINTESTINAL: Abdomen soft, non-tender, nondistended. MUSCULOSKELETAL: No obvious deformities. Extremities without clubbing, cyanosis , or edema. NEUROLOGICAL: Awake and alert. No obvious cranial nerve deficits. Normal speech. PSYCHIATRIC: Appropriate mood and affect; insight and judgment limited. Procedures EGD 02/16/[address] Heath: FINDINGS: 1. The esophagus showed normal proximal and the distal esophagus showed some mild inflammation. 2. The esophagus was dilated with 18 mm Savary dilator over a guidewire. A re-look examination showed no evidence of complication. 3. In the stomach, there was mild gastritis and a biopsy was taken. 4. The duodenum showed duodenitis in the distal bulb. Biopsy was taken. IMPRESSION: 1. Dysphagia. 2. Gastroduodenitis. 3. Weight loss and heme-positive stool. Medications and IVs Current Medications Medications (Trade) Dose Ordered Sig/Maria M Route Start Time Stop Time Status Last Admin (NS Flush) 2 ml BID IV FLUSH 02/14/17 09:00 02/18/17 21:00 (NS Flush) 2 ml UNSCH PRN IV FLUSH 02/13/17 22:15 (Lipitor) 10 mg HS PO 02/14/17 21:00 02/18/17 22:25 (Lanoxin) 0.125 mg DAILY PO 02/14/17 09:00 02/17/17 09:22 (Proscar) 5 mg DAILY PO 02/14/17 09:00 02/18/17 10:08 (Flonase Sánchez Spr) 1 spray DAILY EACH NARE 02/14/17 09:00 02/18/17 10:09 (Folate) 1 mg DAILY PO 02/14/17 09:00 02/18/17 10:08 (Lasix) 40 mg BID PO 02/14/17 09:00 02/18/17 22:25 (Neurontin) 400 mg HS PO 02/14/17 21:00 02/18/17 22:24 (Keppra) 500 mg BID PO 02/14/17 09:00 02/18/17 22:24 (Xarelto) 20 mg DAILY PO 02/14/17 09:00 Hold 02/14/17 10:11 (Zoloft) 25 mg DAILY PO 02/14/17 09:00 02/18/17 10:08 (Flomax) 0.4 mg HS PO 02/14/17 21:00 02/18/17 22:25 (Pill Splitter) 1 ea UNSCH PRN OTHER 02/14/17 03:30 02/14/17 22:46 (Lovenox Inj) 70 mg Q12HR SQ 02/15/17 09:00 Hold 02/15/17 21:39 (Sinemet 25-100 Mg) 1 tab Q8HR PO 02/16/17 06:00 02/19/17 05:41 (Cipro) 250 mg Q12HR PO 02/17/17 21:00 02/18/17 22:24 A/P Problem List: (1) Dysphagia ICD Code: R13.10 Status: Acute (2) Weight loss ICD Code: R63.4 Status: Acute (3) Urinary tract infection ICD Code: N39.0 Status: Acute (4) Altered mental status ICD Code: R41.82 Status: Acute (5) Aphasia ICD Code: R47.01 Status: Acute Assessment and Plan 86 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 Dysphagia with weight loss -barium swallow with silent aspiration - GI consult appreciated; s/p EGD with dilatation of esophagus - ST following, started on mechanical soft diet, chopped meat with gravy, and honey thickened liquids. UTI with e-coli - UA c/w UTI, urine culture with E. coli, resistant to bactrim - changed IV Rocephin to Cipro po Abdominal aortic aneurysm - f/u as outpatient- this was d/w the patient's son who's already aware of the finding. Confusion and aphasia: -EEG; normal -neurology consult appreciated and started on Sinemet with the impression of Parkinson's disease -consulted PT, needs rehab DVT prophylaxis - resume Xarelto upon discharge. Discharge Planning Awaiting acceptance to SNF. Patient stable for discharge to SNF once arrangements made. Problem Qualifiers (1) Urinary tract infection: Qualified Code: N39.0 - Urinary tract infection with hematuria, site unspecified (2) Altered mental status: Qualified Code: R41.0 - Delirium Hemalatha Hanson PA-C Feb 19, 2017 11:05 am
[2017-02-19] MEDS: CIPROFLOXACIN 250 MG TAB PO SCH (12:33)
[2017-02-19] MEDS: FINASTERIDE 5 MG TAB PO SCH (12:33)
[2017-02-19] MEDS: FUROSEMIDE 40 MG TAB PO SCH (12:33)
[2017-02-19] MEDS: DIGOXIN 0.125 MG TAB PO SCH (12:33)
[2017-02-19] MEDS: SERTRALINE HCL 50 MG TAB PO SCH (12:33)
[2017-02-19] MEDS: levETIRAcetam 500 MG TAB PO SCH (12:33)
[2017-02-19] MEDS: FOLIC ACID 1 MG TAB PO SCH (12:33)
[2017-02-19] MEDS: FLUTICASONE PROPIONATE 50 MCG/ACT 16 GM NASAL SPRAY EACH NARE SCH (12:34)
== END 2017-02-19 18:44 | disposition home or self-care (01) ==
LOC: NEPE 19:04 → NEDA 22:09 → NEPFCDU 23:09
PROVIDERS: ADMIT Hospitalist; ATTEND Hospitalist
DX: R13.10 Dysphagia, unspecified (principal); K29.80 Duodenitis without bleeding; K29.50 Unspecified chronic gastritis without bleeding; R63.4 Abnormal weight loss; N39.0 Urinary tract infection, site not specified; R41.82 Altered mental status, unspecified; R47.01 Aphasia; R63.0 Anorexia; G93.89 Other specified disorders of brain; I71.4 Abdominal aortic aneurysm, without rupture; R53.1 Weakness; R41.0 Disorientation, unspecified; R11.2 Nausea with vomiting, unspecified; R05 Cough; K59.00 Constipation, unspecified; R41.3 Other amnesia; R31.9 Hematuria, unspecified; I44.7 Left bundle-branch block, unspecified; R94.31 Abnormal electrocardiogram [ECG] [EKG]; R25.8 Other abnormal involuntary movements; I25.10 Atherosclerotic heart disease of native coronary artery without angina pectoris; I11.0 Hypertensive heart disease with heart failure; I50.9 Heart failure, unspecified; E78.5 Hyperlipidemia, unspecified; E78.00 Pure hypercholesterolemia, unspecified; I48.91 Unspecified atrial fibrillation; G20 Parkinson's disease; Z95.1 Presence of aortocoronary bypass graft; Z86.718 Personal history of other venous thrombosis and embolism; Z85.828 Personal history of other malignant neoplasm of skin; Z86.73 Personal history of transient ischemic attack (TIA), and cerebral infarction without residual deficits; I69.354 Hemiplegia and hemiparesis following cerebral infarction affecting left non-dominant side; Z95.2 Presence of prosthetic heart valve; Z95.0 Presence of cardiac pacemaker; Z79.899 Other long term (current) drug therapy; Z79.01 Long term (current) use of anticoagulants; Z87.891 Personal history of nicotine dependence
CPT/HCPCS: 00740; 43239; 43248; 70450; 74177; 74230; 80048; 80053; 80061; 81001; 82550; 83036; 84484; 85025; 85610; 85730; 87077; 87086; 87186; 88305; 88312; 92526; 92610; 92611; 93005; 95819; 96365; 97162; 99285; C1769; G0378; G8987; G8988; G8996; G8997; G8998; J0696; J1650; Q9963; Q9967

== ENCOUNTER 2017-03-08 17:23 | Observation (INO) | payer OTHER ==
[~2017-03-08] VITALS: Ht 177.8 cm; Wt 80.0 kg
[~2017-03-08 17:23] MED LIST changes: +CARB25TA9 PO; +CIPR250T52 PO; +FOLI800T PO; -LEVA250T PO; +VITA100021 SL
[2017-03-08 17:27] VITALS: BP 118/58; PULSE 62; RESP 20; TEMP 97; O2SAT 94
[2017-03-08 18:20] VITALS: RESP 18; O2SAT 98
[2017-03-08] MEDS ORDERED: DONE5TAB7 PO (18:21)
[2017-03-08] MEDS ORDERED: ARIC23TA PO (18:21)
--- NOTE | 2017-03-08 18:29 | PD ---
HPI Chief Complaint: General Weakness Time Seen by Provider: 18:14 Travel History International Travel<30 days: No Contact w/Intl Traveler<30days: No Traveled to known affect area: No History of Present Illness HPI Patient is an 86-year-old male with history of hypertension, CVA, atrial fibrillation, hyperlipidemia, status post aortic valve replacement who presents to emergency room with his son for evaluation of generalized weakness. As per patient's son and power of attorney law clerk, patient was admitted to the hospital 3 weeks ago for evaluation of generalized weakness. Reports that he was diagnosed with a urinary tract infection and was admitted to the hospital for a week. He was sent to a rehabilitation facility after that and was discharged home from the rehabilitation facility on Sunday. As per son, the rehabilitation facility wanted patient to stay longer as they felt that he required more physical therapy but patient wanted to go home and they agreed to home physical therapy. Reports that patient is currently being cared for by his other son - reports that he is unable to care for patient. Reports that he is usually ambulatory - reports that he has been non ambulatory since he has been home. Home PT did come and evaluate patient - reports that they recommended that patient go back to rehab facility because he was too weak. Patient's only complaint now is generalized weakness PFSH Past Medical History Hx Anticoagulant Therapy: Yes Arthritis: No Atrial Fibrillation: Yes Anxiety: No Depression: No Cancer: Yes (SKIN CANCER) Cardiac Catheterization: Yes Cardiovascular Problems: Yes High Cholesterol: Yes Chest Pain: Yes Congestive Heart Failure: Yes Cerebrovascular Accident: Yes Coronary Artery Disease: Yes Diminished Hearing: No Endocrine: No Gastrointestinal Disorders: Yes Genitourinary: No Headaches: Yes Hypertension: Yes Immune Disorder: No Neurologic: Yes Reproductive: No Respiratory: No Migraines: No Pneumonia: Yes Renal Failure: No Seizures: No Past Surgical History Abdominal Surgery: No Cardiac Surgery: Yes (PACEMAKER ON DEMAND) Coronary Artery Bypass Graft: Yes (X 1 IN 1994) Endocrine Surgery: No Eye Surgery: No Genitourinary Surgery: No Gynecologic Surgery: No Neurologic Surgery: No Oral Surgery: No Pacemaker: Yes Thoracic Surgery: No Valve Replacement: Yes Other Surgery: Yes (CYST (pilonidal)) Social History Alcohol Use: No Tobacco Use: No Substance Use: No Allergies-Medications (Allergen,Severity, Reaction): Coded Allergies: No Known Allergies (Verified , 03/08/17) Reported Meds & Prescriptions Reported Meds & Active Scripts Active Carbidopa-Levodopa 25-100 Mg Tab 1 Tab PO Q8HR 30 Days Reported Donepezil 5 Mg Tab 5 Mg PO HS Aricept (Donepezil) 23 Mg Tab 5 Mg PO HS Do not split, crushed or chewed. Vitamin B-12 (Cyanocobalamin) 1,000 Mcg Subl 1,000 Mcg SL DAILY Folic Acid 800 Mcg Tab 1 Mg PO DAILY Xarelto (Rivaroxaban) 20 Mg Tab 20 Mg PO DAILY Sertraline (Sertraline HCl) 50 Mg Tab 25 Mg PO DAILY Proscar (Finasteride) 5 Mg Tab 5 Mg PO DAILY Do not crush. Potassium Chloride ER (Potassium Chloride) 20 Meq Tab 20 Meq PO BID Levetiracetam 500 Mg Tab 500 Mg PO BID Gabapentin 400 Mg Cap 400 Cap PO HS Furosemide 40 Mg Tab 40 Mg PO BID Flonase Allergy Relief Children Nasal [place] (Fluticasone Nasal [place]) 50 Mcg/ Act [place] 1 [place] EACH NARE DAILY 50 mcg/spray Flomax (Tamsulosin HCl) 0.4 Mg Cap 0.4 Mg PO HS Digoxin 0.125 Mg Tab 0.125 Mg PO DAILY Atorvastatin (Atorvastatin Calcium) 10 Mg Tab 10 Mg PO HS Review of Systems ROS Limitations: Clinical Condition General / Constitutional: No: Fever Eyes: No: Visual changes HENT: No: Headaches Cardiovascular: No: Chest Pain or Discomfort Respiratory: No: Shortness of Breath Gastrointestinal: No: Abdominal Pain Genitourinary: No: Dysuria Musculoskeletal: No: Pain Skin: No Rash Neurologic: Positive: Weakness Psychiatric: No: Depression Endocrine: No: Polydipsia Hematologic/Lymphatic: No: Easy Bruising Physical Exam Narrative GENERAL: mild distress, cachetic appearing SKIN: Focused skin assessment warm/dry. HEAD: Atraumatic. Normocephalic. EYES: Pupils equal and round. No scleral icterus. No injection or drainage. ENT: No nasal bleeding or discharge. Mucous membranes pink and moist. NECK: Trachea midline. No JVD. CARDIOVASCULAR: Regular rate and rhythm. No murmur appreciated. RESPIRATORY: No accessory muscle use. Clear to auscultation. Breath sounds equal bilaterally. GASTROINTESTINAL: Abdomen soft, non-tender, nondistended. Hepatic and splenic margins not palpable. MUSCULOSKELETAL: No obvious deformities. No clubbing. No cyanosis. No edema. NEUROLOGICAL: Awake and alert. No obvious cranial nerve deficits. Slow speech. PSYCHIATRIC: Flat affect Data Data Last Documented VS Vital Signs Date Time Temp Pulse Resp B/P Pulse Ox O2 Delivery O2 Flow Rate FiO2 03/08/17 18:20 62 18 98 Room Air 03/08/17 17:27 97.0 118/58 Orders Electrocardiogram (03/08/17 18:22) B-Type Natriuretic Peptide (03/08/17 18:22) Ckmb (Isoenzyme) Profile (03/08/17 18:22) Complete Blood Count With Diff (03/08/17 18:22) Comprehensive Metabolic Panel (03/08/17 18:22) Magnesium (Mg) (03/08/17 18:22) Prothrombin Time / Inr (Pt) (03/08/17 18:) Act Partial Throm Time (Ptt) (03/08/17 18:22) Troponin I (03/08/17 18:22) Chest, Single Ap (03/08/17 18:22) Ecg Monitoring (03/08/17 18:22) Iv Access Insert/Monitor (03/08/17 18:22) Oximetry (03/08/17 18:22) Sodium Chloride 0.9% Flush (Ns Flush) (03/08/17 18:30) Sodium Chlorid 0.9% 500 Ml Inj (Ns 500 M (03/08/17 18:30) Urinalysis - C+S If Indicated (03/08/17 18:22) Piperacil-Tazo 4.5 Gm Premix (Zosyn 4.5 (03/08/17 20:30) Azithromycin Inj (Zithromax Inj) (03/08/17 20:30) Admit Order (Ed Use Only) (03/08/17 20:29) Labs Laboratory Tests Test 03/08/17 03/08/17 18:30 19:20 White Blood Count 6.3 TH/MM3 Red Blood Count 4.59 MIL/MM3 Hemoglobin 14.1 GM/DL Hematocrit 42.5 % Mean Corpuscular Volume 92.7 FL Mean Corpuscular Hemoglobin 30.7 PG Mean Corpuscular Hemoglobin 33.1 % Concent Red Cell Distribution Width 14.0 % Platelet Count 231 TH/MM3 Mean Platelet Volume 7.7 FL Neutrophils (%) (Auto) 63.3 % Lymphocytes (%) (Auto) 24.6 % Monocytes (%) (Auto) 8.4 % Eosinophils (%) (Auto) 2.9 % Basophils (%) (Auto) 0.8 % Neutrophils # (Auto) 4.0 TH/MM3 Lymphocytes # (Auto) 1.5 TH/MM3 Monocytes # (Auto) 0.5 TH/MM3 Eosinophils # (Auto) 0.2 TH/MM3 Basophils # (Auto) 0.0 TH/MM3 CBC Comment DIFF FINAL Differential Comment Prothrombin Time 12.5 SEC Prothromb Time International 1.1 RATIO Ratio Activated Partial 32.8 SEC Thromboplast Time Sodium Level 139 MEQ/L Potassium Level 3.8 MEQ/L Chloride Level 104 MEQ/L Carbon Dioxide Level 27.4 MEQ/L Anion Gap 8 MEQ/L Blood Urea Nitrogen 27 MG/DL Creatinine 0.99 MG/DL Estimat Glomerular Filtration 71 ML/MIN Rate Random Glucose 133 MG/DL Calcium Level 8.1 MG/DL Magnesium Level 1.9 MG/DL Total Bilirubin 0.4 MG/DL Aspartate Amino Transf 52 U/L (AST/SGOT) Alanine Aminotransferase 44 U/L (ALT/SGPT) Alkaline Phosphatase 195 U/L Total Creatine Kinase 17 U/L Troponin I 0.02 NG/ML B-Type Natriuretic Peptide 143 PG/ML Total Protein 6.7 GM/DL Albumin 2.4 GM/DL Urine Color YELLOW Urine Turbidity CLEAR Urine pH 5.5 Urine Specific [place] 1.020 Urine Protein NEG mg/dL Urine Glucose (UA) NEG mg/dL Urine Ketones NEG mg/dL Urine Occult Blood NEG Urine Nitrite NEG Urine Bilirubin NEG Urine Urobilinogen LESS THAN 2.0 MG/DL Urine Leukocyte Esterase NEG Urine RBC LESS THAN 1 /hpf Urine WBC 1 /hpf Urine Mucus FEW /lpf Microscopic Urinalysis Comment CULT NOT INDICATED MDM Medical Decision Making Medical Screen Exam Complete: Yes Emergency Medical Condition: Yes Interpretation(s) EKG at 1852: Ventricular paced at 63bpm Vital Signs Date Time Temp Pulse Resp B/P Pulse Ox O2 Delivery O2 Flow Rate FiO2 03/08/17 18:20 18 98 Room Air 03/08/17 17:27 97.0 62 20 118/58 94 Room Air Differential Diagnosis Differential includes UTI, electrolyte abnormality, arrhythmia Narrative Course Patient is a 86 year old male who returns to the ER for evaluation and admission of generalized weakness. Plan to obtain basic labs and UA - will monitor on shelter monitor Vital Signs Date Time Temp Pulse Resp B/P Pulse Ox O2 Delivery O2 Flow Rate FiO2 03/08/17 18:20 62 18 98 Room Air 03/08/17 18:20 18 98 Room Air 03/08/17 17:27 97.0 62 20 118/58 94 Room Air Laboratory Tests Test 03/08/17 03/08/17 18:30 19:20 White Blood Count 6.3 TH/MM3 (4.0-11.0) Red Blood Count 4.59 MIL/MM3 (4.50-5.90) Hemoglobin 14.1 GM/DL (13.0-17.0) Hematocrit 42.5 % (39.0-51.0) Mean Corpuscular Volume 92.7 FL (80.0-100.0) Mean Corpuscular Hemoglobin 30.7 PG (27.0-34.0) Mean Corpuscular Hemoglobin 33.1 % Concent (32.0-36.0) Red Cell Distribution Width 14.0 % (11.6-17.2) Platelet Count 231 TH/MM3 (150-450) Mean Platelet Volume 7.7 FL (7.0-11.0) Neutrophils (%) (Auto) 63.3 % (16.0-70.0) Lymphocytes (%) (Auto) 24.6 % (9.0-44.0) Monocytes (%) (Auto) 8.4 % (0.0-8.0) Eosinophils (%) (Auto) 2.9 % (0.0-4.0) Basophils (%) (Auto) 0.8 % (0.0-2.0) Neutrophils # (Auto) 4.0 TH/MM3 (1.8-7.7) Lymphocytes # (Auto) 1.5 TH/MM3 (1.0-4.8) Monocytes # (Auto) 0.5 TH/MM3 (0-0.9) Eosinophils # (Auto) 0.2 TH/MM3 (0-0.4) Basophils # (Auto) 0.0 TH/MM3 (0-0.2) CBC Comment DIFF FINAL Differential Comment Prothrombin Time 12.5 SEC (9.8-11.6) Prothromb Time International 1.1 RATIO Ratio Activated Partial 32.8 SEC Thromboplast Time (24.3-30.1) Sodium Level 139 MEQ/L (136-145) Potassium Level 3.8 MEQ/L (3.5-5.1) Chloride Level 104 MEQ/L (98-107) Carbon Dioxide Level 27.4 MEQ/L (21.0-32.0) Anion Gap 8 MEQ/L (5-15) Blood Urea Nitrogen 27 MG/DL (7-18) Creatinine 0.99 MG/DL (0.60-1.30) Estimat Glomerular Filtration 71 ML/MIN (>89) Rate Random Glucose 133 MG/DL (74-106) Calcium Level 8.1 MG/DL (8.5-10.1) Magnesium Level 1.9 MG/DL (1.5-2.5) Total Bilirubin 0.4 MG/DL (0.2-1.0) Aspartate Amino Transf 52 U/L (15-37) (AST/SGOT) Alanine Aminotransferase 44 U/L (12-78) (ALT/SGPT) Alkaline Phosphatase 195 U/L (45-117) Total Creatine Kinase 17 U/L (39-308) Troponin I 0.02 NG/ML (0.02-0.05) B-Type Natriuretic Peptide 143 PG/ML (0-100) Total Protein 6.7 GM/DL (6.4-8.2) Albumin 2.4 GM/DL (3.4-5.0) Urine Color YELLOW (YELLW/STRAW) Urine Turbidity CLEAR (CLEAR) Urine pH 5.5 (5.0-8.5) Urine Specific [place] 1.020 (1.002-1.035) Urine Protein NEG mg/dL (NEG-TRACE) Urine Glucose (UA) NEG mg/dL (NEG) Urine Ketones NEG mg/dL (NEG) Urine Occult Blood NEG (NEG) Urine Nitrite NEG (NEG) Urine Bilirubin NEG (NEG) Urine Urobilinogen LESS THAN 2.0 MG/DL (LESS THAN 2.0) Urine Leukocyte Esterase NEG (NEG) Urine RBC LESS THAN 1 /hpf (0-3) Urine WBC 1 /hpf (0-5) Urine Mucus FEW /lpf (OCC) Microscopic Urinalysis Comment CULT NOT INDICATED Last Impressions Chest X-Ray 03/08/17 0156 Signed Impressions: Service Date/Time: March 18:18 - CONCLUSION: Persistent, slightly larger interstitial infiltrate in the lateral right midlung when compared to 10/21/15. No evidence of pleural effusion. The left lung is clear. Juan Sanders MD X-ray of the chest shows a persistent slightly larger and distal infiltrate in the lateral right mid lung, plan to obtain blood cultures and treat for hospital -acquired pneumonia as patient was recently admitted to the hospital. case reviewed with dr carbone who accepts pt to service Diagnosis Primary Impression: Pneumonia Additional Impression: Generalized weakness Admitting Information Admitting Physician Requests: Observation Magui Donis DO Mar 08, 2017 18:29
[2017-03-08] MEDS ORDERED: SODIUM CHLORIDE 0.9% FLUSH 10 ML FLUSH IVF PRN (18:30)
[2017-03-08] MEDS ORDERED: SODIUM CHLORID 0.9% 500 ML INJ 500 ML IV ONE (18:30)
[2017-03-08 19:25] LABS: BASOPHIL % 0.8 % (0.0-2.0); EOSINOPHIL # 0.2 TH/MM3 (0-0.4); EOSINOPHIL % 2.9 % (0.0-4.0); HEMATOCRIT 42.5 % (39.0-51.0); HEMO FLAGS DIFF FINAL; LYMPH % 24.6 % (9.0-44.0); LYMPHOCYTE # 1.5 TH/MM3 (1.0-4.8); MEAN CELL VOLUME 92.7 FL (80.0-100.0); MEAN CORPUSCULAR HEMOGLOBIN 30.7 PG (27.0-34.0); MEAN CORPUSCULAR HGB CONC 33.1 % (32.0-36.0); MONO % 8.4 % (0.0-8.0); NEUT % 63.3 % (16.0-70.0); PLATELET COUNT 231 TH/MM3 (150-450); RED BLOOD COUNT 4.59 MIL/MM3 (4.50-5.90); WHITE BLOOD COUNT 6.3 TH/MM3 (4.0-11.0)
[2017-03-08 19:35] LABS: APTT (PATIENT) 32.8 SEC (24.3-30.1); INTERNATIONAL NORMALIZED RATIO 1.1 RATIO; PROTHROMBIN TIME - PATIENT 12.5 SEC (9.8-11.6)
--- NOTE | 2017-03-08 19:36 | RADRPT ---
EXAM DATE/TIME: 03/08/2017 18:18 [place] COMPARISON: CT PULMONARY ANGIOGRAM, December 02, 2014, 13:57. CHEST SINGLE AP, October 21, 2015, 18:27. INDICATIONS : Chest pain MEDICAL HISTORY : Cardiovascular disease. Hypertension. SURGICAL HISTORY : CABG Pacemaker. ENCOUNTER: Initial ACUITY: 1 day PAIN SCORE: 0/10 LOCATION: chest FINDINGS: There is prominent interstitial infiltrate in the right midlung superior to the minor fissure. A sim ilar opacity was present on a prior chest x-ray in October 2015, but the size has increased slightly. No new infiltrates seen. The heart is normal size. Median sternotomy and cardiac pacer, stable. CONCLUSION: Persistent, slightly larger interstitial infiltrate in the lateral right midlung when compared to 10/04 02/18. No evidence of pleural effusion. The left lung is clear. Juan Sanders MD on March 08, 2017 at 19:33 Board Certified Radiologist. This report was verified electronically.
[2017-03-08 19:39] LABS: ANION GAP 8 MEQ/L (5-15); AST (GOT) 52 U/L (15-37); BICARBONATE 27.4 MEQ/L (21.0-32.0); BLOOD UREA NITROGEN 27 MG/DL (7-18); CHLORIDE 104 MEQ/L (98-107); GLOMERULAR FILTRATION RATE 71 ML/MIN (>89); MAGNESIUM 1.9 MG/DL (1.5-2.5); POTASSIUM 3.8 MEQ/L (3.5-5.1); SODIUM (NA) 139 MEQ/L (136-145)
[2017-03-08 19:40] LABS: ALT (GPT) 44 U/L (12-78)
[2017-03-08 19:44] LABS: ALKALINE PHOSPHATASE 195 U/L (45-117); TOTAL BILIRUBIN ADULT 0.4 MG/DL (0.2-1.0)
[2017-03-08 19:46] LABS: CREATINE KINASE 17 U/L (39-308)
[2017-03-08 20:13] LABS: BLOOD, URINE NEG (NEG); COMMENT (UR) CULT NOT INDICATED; CULTURE IF INDICATED CULT NOT INDICATED; GLUCOSE,URINE NEG (NEG); KETONE, URINE NEG (NEG); MUCUS URINE FEW /lpf (OCC); NITRITE,URINE NEG (NEG); PH, URINE 5.5 (5.0-8.5); URINE COLOR YELLOW (YELLW/STRAW)
[2017-03-08] MEDS ORDERED: PIPERACIL-TAZO 4.5 GM PREMIX 100 ML IV ONE (20:30)
[2017-03-08] MEDS ORDERED: AZITHROMYCIN INJ 500 MG in SODIUM CHLOR 0.9% 250 ML INJ 250 ML IV ONE (20:30)
--- NOTE | 2017-03-08 20:58 | HHI.HP ---
[facility] Mabel Matos MD Admission Diagnosis Pneumonia Diagnoses: (1) PNA (pneumonia) Diagnosis: Principal (2) Gait instability Diagnosis: Principal (3) Dehydration Diagnosis: Principal (4) Dementia Diagnosis: Principal Travel History International Travel<30 Days: No Contact w/Intl Traveler <30 Da: No Traveled to Known Affected Are: No History of Present Illness This is an 86-year-old male with PMH of HTN, A. fib on Xarelto, Hyperlipidemia, h/o CVA and h/o AVR who was brought to the ER by family secondary to generalized weakness. Per family, pt w/ progressive weakness, family unable to care for patient. Recent admit 02/13-02/16/17 secondary to Dysphagia, Aphasia/ Confusion and UTI. S/p EGD w/ dilatation and treated for UTI, eval by Neurology and started on Sinemet for suspected Parkinson's Disease. Was d/c'd to SNF and recently d/c'd home, however family reports progressive decline. [facility] has evaluated pt and recommended pt be sent to Rehab Facility, however PCP has not completed forms per family. On arrival, BP 118/58, HR 62, O2 sat 94% on RA, Afebrile. CBC unremarkable. Chemistry essentially unremarkable. GFR 71. UA negative. CXR persistent interstitial infiltrate lateral right mid lung, no effusion. S/p Rocephin/Zithro in ER. Review of Systems ROS: Unable to obtain. Past Family Social History Past Medical History PMH: HTN, A. fib on Xarelto, Hyperlipidemia, h/o CVA and h/o AVR Past Surgical History PAST SURGICAL HISTORY: Pacemaker, Pilonidal Cyst, AVR Allergies: Coded Allergies: No Known Allergies (Verified , 03/08/17) Family History PAST FAMILY HISTORY: Reviewed. No h/o DM or CAD Social History PAST SOCIAL HISTORY: Negative for alcohol, tobacco or drugs. Physical Exam Vital Signs Vital Signs Date Time Temp Pulse Resp B/P Pulse Ox O2 Delivery O2 Flow Rate FiO2 03/08/17 18:20 62 18 98 Room Air 03/08/17 18:20 18 98 Room Air 03/08/17 17:27 97.0 62 20 118/58 94 Room Air Physical Exam PE: GENERAL: Elderly chronically ill-appearing male in no acute distress. Flat affect. HEENT: PERRLA, EOMI. No scleral icterus or conjunctival pallor. No lid lag or facial droop. CARDIOVASCULAR: Regular rate and rhythm. No obvious murmurs to auscultation. No chest tenderness to palpation. RESPIRATORY: No obvious rhonchi or wheezing. Clear to auscultation. Breath sounds equal bilaterally. GASTROINTESTINAL: Abdomen soft, non-tender, nondistended. BS normal. MUSCULOSKELETAL: Extremities without clubbing, cyanosis, or edema. No obvious deformities. NEUROLOGICAL: Awake, alert. No focal neurologic deficits. Moving both upper and lower extremities spontaneously. Laboratory Laboratory Tests Test 03/08/17 03/08/17 18:30 19:20 White Blood Count 6.3 Red Blood Count 4.59 Hemoglobin 14.1 Hematocrit 42.5 Mean Corpuscular Volume 92.7 Mean Corpuscular Hemoglobin 30.7 Mean Corpuscular Hemoglobin 33.1 Concent Red Cell Distribution Width 14.0 Platelet Count 231 Mean Platelet Volume 7.7 Neutrophils (%) (Auto) 63.3 Lymphocytes (%) (Auto) 24.6 Monocytes (%) (Auto) 8.4 Eosinophils (%) (Auto) 2.9 Basophils (%) (Auto) 0.8 Neutrophils # (Auto) 4.0 Lymphocytes # (Auto) 1.5 Monocytes # (Auto) 0.5 Eosinophils # (Auto) 0.2 Basophils # (Auto) 0.0 CBC Comment DIFF FINAL Differential Comment Prothrombin Time 12.5 Prothromb Time International 1.1 Ratio Activated Partial 32.8 Thromboplast Time Sodium Level 139 Potassium Level 3.8 Chloride Level 104 Carbon Dioxide Level 27.4 Anion Gap 8 Blood Urea Nitrogen 27 Creatinine 0.99 Estimat Glomerular Filtration 71 Rate Random Glucose 133 Calcium Level 8.1 Magnesium Level 1.9 Total Bilirubin 0.4 Aspartate Amino Transf 52 (AST/SGOT) Alanine Aminotransferase 44 (ALT/SGPT) Alkaline Phosphatase 195 Total Creatine Kinase 17 Troponin I 0.02 B-Type Natriuretic Peptide 143 Total Protein 6.7 Albumin 2.4 Urine Color YELLOW Urine Turbidity CLEAR Urine pH 5.5 Urine Specific [place] 1.020 Urine Protein NEG Urine Glucose (UA) NEG Urine Ketones NEG Urine Occult Blood NEG Urine Nitrite NEG Urine Bilirubin NEG Urine Urobilinogen LESS THAN 2.0 Urine Leukocyte Esterase NEG Urine RBC LESS THAN 1 Urine WBC 1 Urine Mucus FEW Microscopic Urinalysis Comment CULT NOT INDICATED Result Diagram: 03/08/17182903/08/171829 Assessment and Plan Problem List: (1) PNA (pneumonia) ICD Code: J18.9 Status: Acute (2) Gait instability ICD Code: R26.81 Status: Acute (3) Dehydration ICD Code: E86.0 Status: Acute (4) Dementia ICD Code: F03.90 Status: Acute Assessment and Plan A/P: 1. PNA: CXR w/ persistent, slightly larger interstitial infiltrate lateral right mid lung images reviewed by me. Afebrile, no leukocytosis. S/p Rocephin/ Zithro in ER, will continue w/ IV Abx, DuoNeb prn. 2. Gait Instability: secondary to generalized weakness/deconditioning. Recently d/c'd from Rehab, however family reports progressive decline, [facility] recommending Rehab Placement. Will ask PT to [facility]. Case Management assistance for possible placement. 3. Dehydration: BUN 27, GFR 71. UA negative. IVF, repeat labs in a.m. 4. Dementia: Seemingly at baseline. Resume home medications. 5. DVT Prophylaxis: On Xarelto for A. fib, will resume. 6. Social work for DC planning as needed. 7. Case discussed at length with ER physician. Krystal Guerrero MD Mar 08, 2017 20:58
[2017-03-08] MEDS ORDERED: ACETAMINOPHEN 325 MG TAB PO PRN (21:00)
[2017-03-08] MEDS ORDERED: ACETAMINOPHEN/HYDROcodone 325 MG/5 MG TAB PO PRN (21:00)
[2017-03-08] MEDS ORDERED: RESP: ALBUTEROL 2.5 MG/IPRATROPIUM 0.5 MG NEB (PRN) NEB (21:00)
[2017-03-08] MEDS ORDERED: MAGNESIUM HYDROXIDE SUSP 30 ML CUP PO PRN (21:00)
[2017-03-08] MEDS ORDERED: BISACODYL 10 MG SUPP RECTAL PRN (21:00)
[2017-03-08] MEDS ORDERED: LACTULOSE SYRUP 20 GM/30 ML CUP PO PRN (21:00)
[2017-03-08] MEDS ORDERED: ACETAMINOPHEN/HYDROcodone 325 MG/7.5 MG TAB PO PRN (21:00)
[2017-03-08] MEDS ORDERED: ONDANSETRON HCL 4 MG/2 ML VIAL IVP PRN (21:00)
[2017-03-08] MEDS ORDERED: SENNOSIDES 8.6 MG TAB PO PRN (21:00)
[2017-03-08] MEDS ORDERED: SODIUM CHLORIDE 0.9% FLUSH 10 ML FLUSH IV FLUSH PRN (21:00)
[2017-03-08] MEDS: SODIUM CHLORIDE 0.9% FLUSH 10 ML FLUSH IV FLUSH SCH (22:21)
[2017-03-08 22:24] VITALS: BP 128/77
[2017-03-08] MEDS: DOCUSATE SODIUM 50 MG/SENNA 8.6 MG TAB PO SCH (23:01)
[2017-03-08 23:40] VITALS: BP 113/58; PULSE 67; RESP 18; TEMP 98.4; O2SAT 97
[2017-03-09] MEDS ORDERED: PILL SPLITTER OTHER PRN (00:30)
[2017-03-09 04:05] VITALS: BP 108/64; PULSE 64; RESP 16; TEMP 98.7; O2SAT 94
[2017-03-09] MEDS: CARBIDOPA/LEVODOPA 25 MG/100 MG TAB PO SCH ×3 (06:20→21:51)
[2017-03-09] MEDS: levETIRAcetam 500 MG TAB PO SCH ×2 (08:25→21:51)
[2017-03-09] MEDS: RIVAROXABAN 20 MG TAB PO SCH (08:25)
[2017-03-09] MEDS: DIGOXIN 0.125 MG TAB PO SCH (08:25)
[2017-03-09] MEDS: FOLIC ACID 1 MG TAB PO SCH (08:25)
[2017-03-09] MEDS: SODIUM CHLORIDE 0.9% FLUSH 10 ML FLUSH IV FLUSH SCH ×2 (08:25→21:51)
[2017-03-09] MEDS: SERTRALINE HCL 50 MG TAB PO SCH (08:25)
[2017-03-09] MEDS: FINASTERIDE 5 MG TAB PO SCH (08:25)
[2017-03-09] MEDS: DOCUSATE SODIUM 50 MG/SENNA 8.6 MG TAB PO SCH ×2 (08:25→21:51)
[2017-03-09] MEDS: FUROSEMIDE 40 MG TAB PO SCH ×2 (08:26→21:51)
[2017-03-09 08:30] VITALS: BP 132/72; PULSE 60; RESP 16; TEMP 97.9; O2SAT 95
[2017-03-09] MEDS: FLUTICASONE PROPIONATE 50 MCG/ACT 16 GM NASAL SPRAY EACH NARE SCH (09:00)
[2017-03-09 09:21] LABS: AUTOMATED NEUTROPHIL # 5.3 TH/MM3 (1.8-7.7); BASOPHIL # 0.1 TH/MM3 (0-0.2); BASOPHIL % 0.8 % (0.0-2.0); EOSINOPHIL # 0.2 TH/MM3 (0-0.4); EOSINOPHIL % 2.4 % (0.0-4.0); HEMATOCRIT 40.8 % (39.0-51.0); HEMO FLAGS DIFF FINAL; LYMPH % 23.3 % (9.0-44.0); LYMPHOCYTE # 1.9 TH/MM3 (1.0-4.8); MEAN CELL VOLUME 92.1 FL (80.0-100.0); MEAN CORPUSCULAR HEMOGLOBIN 30.9 PG (27.0-34.0); MEAN CORPUSCULAR HGB CONC 33.5 % (32.0-36.0); MONO % 7.3 % (0.0-8.0); NEUT % 66.2 % (16.0-70.0); PLATELET COUNT 223 TH/MM3 (150-450); RED BLOOD COUNT 4.43 MIL/MM3 (4.50-5.90); RED CELL DISTRIBUTION WIDTH 14.3 % (11.6-17.2); WHITE BLOOD COUNT 8.1 TH/MM3 (4.0-11.0)
--- NOTE | 2017-03-09 10:04 | HHI.PR ---
Subjective Remarks Follow-up for generalized weakness and possible pneumonia. The patient denies any acute complaints. He denies any shortness breath, fever, chills. States that he has been having dry cough. He denies any coughing or choking when he swallows. He does have a history of residual left-sided weakness secondary to old stroke., Denies any acute changes. Objective Vitals Vital Signs Date Time Temp Pulse Resp B/P Pulse Ox O2 Delivery O2 Flow Rate FiO2 03/09/17 08:30 97.9 60 16 132/72 95 03/09/17 04:05 98.7 64 16 108/64 94 03/08/17 23:40 98.4 67 18 113/58 97 03/08/17 22:24 60 18 128/77 97 03/08/17 18:20 62 18 98 Room Air 03/08/17 18:20 18 98 Room Air 03/08/17 17:27 97.0 62 20 118/58 94 Room Air Result Diagram: 03/09/17 0850 03/08/17 1830 Imaging Last Impressions Chest X-Ray 03/08/17 1822 Signed Impressions: Service Date/Time: March 18:18 - CONCLUSION: Persistent, slightly larger interstitial infiltrate in the lateral right midlung when compared to 10/21/15. No evidence of pleural effusion. The left lung is clear. Juan Sanders MD Objective Remarks GENERAL: Well-developed fair-nourished frail elderly male. In no acute distress. SKIN: Warm and dry. No lesions noted. HEENT: Normocephalic. Pupils equal and round. Mucous membranes pink and moist. CARDIOVASCULAR: Regular rate and rhythm. No murmur appreciated. RESPIRATORY: No accessory muscle use. Clear to auscultation. Breath sounds equal bilaterally. No wheezing, rales, or crackles. GASTROINTESTINAL: Abdomen soft, non-tender, nondistended. Bowel sounds x4. MUSCULOSKELETAL: No obvious deformities. No clubbing or cyanosis. No edema. NEUROLOGICAL: Awake and alert. Moves upper and lower extremities spontaneously. Normal speech. Strength 4/5 in right upper extremity, 3/5 in left upper extremity, 3/5 in right lower extremity, 2/5 in left lower extremity. PSYCHIATRIC: Appropriate mood and affect; insight and judgment fair to normal. A/P Problem List: (1) PNA (pneumonia) ICD Code: J18.9 Status: Acute (2) Gait instability ICD Code: R26.81 Status: Acute (3) Dementia ICD Code: F03.90 Status: Chronic Assessment and Plan 86-year-old male with PMH of HTN, A. fib on Xarelto, Hyperlipidemia, h/o CVA and h/o AVR who was brought to the ER by family secondary to generalized weakness PNA: CXR w/ larger interstitial infiltrate lateral right mid lung when compared to previous image from October, personally reviewed. Afebrile, no leukocytosis. Continue antibiotics with oral moxifloxacin. DuoNeb prn. O2 if needed, currently 95% on room air. Generalized weakness/Gait Instability: Secondary to deconditioning and residual left-sided weakness from past stroke. Recently d/c'd early from rehabilitation due to patient's request, however failed HHC, who reportedly recommended SNF placement. PT consulted, recommends rehabilitation placement. Case Management consulted to assist with placement. Dementia: Chronic. Seemingly at baseline. Continue home medications. Recent history of dysphasia: Patient with recent admission and found to have silent aspiration. GI performed EGD with dilation. Rule out any further aspiration with pneumonia as above, consult speech therapy. DVT Prophylaxis: Continue on Xarelto for A. fib Discharge Planning Currently the patient is medically stable pending SNF placement. With profound chronic weakness, patient may require [id number] review if denied by insurance. Needs SNF. Bakari Horne Mar 09, 2017 10:04
[2017-03-09 10:12] LABS: CHLORIDE 105 MEQ/L (98-107); POTASSIUM 3.7 MEQ/L (3.5-5.1); SODIUM (NA) 140 MEQ/L (136-145)
[2017-03-09 10:28] LABS: ALT (GPT) 8 U/L (12-78)
[2017-03-09 10:36] LABS: ANION GAP 9 MEQ/L (5-15); AST (GOT) 42 U/L (15-37); BLOOD UREA NITROGEN 23 MG/DL (7-18); GLOMERULAR FILTRATION RATE 85 ML/MIN (>89)
[2017-03-09 10:38] LABS: ALKALINE PHOSPHATASE 182 U/L (45-117); TOTAL BILIRUBIN ADULT 0.9 MG/DL (0.2-1.0)
[2017-03-09 11:28] VITALS: BP 152/72; PULSE 60; RESP 18; TEMP 97.8; O2SAT 98
--- NOTE | 2017-03-09 12:01 | EKG ---
Date Performed: 03/08/2017 Time Performed: 18:52:23 PTAGE: 86 years EKG: ELECTRONIC VENTRICULAR PACEMAKER ABNORMAL RHYTHM ECG PREVIOUS TRACING : 02/13/2017 19.25 Compared to the prior study, paced rhythm has replaced the patient's intrinsic atrial fibrillation, underlying atrial fibrillation continues. DOCTOR: Pierre Trujillo Interpretating Date/Time 03/09/2017 11:59:39
[2017-03-09] MEDS: MOXIFLOXACIN HYDROCHLORIDE 400 MG TAB PO SCH (13:40)
[2017-03-09 16:09] VITALS: BP 163/80; PULSE 62; RESP 16; TEMP 97.9; O2SAT 97
[2017-03-09] MEDS ORDERED: cefTRIAXone INJ 1,000 MG in SODIUM CHLORIDE 0.9% INJ 100 ML IV SCH (20:00)
[2017-03-09 20:28] VITALS: BP 120/70; PULSE 73; RESP 18; TEMP 98; O2SAT 95
[2017-03-09] MEDS ORDERED: AZITHROMYCIN INJ 500 MG in SODIUM CHLOR 0.9% 250 ML INJ 250 ML IV SCH (21:00)
[2017-03-09] MEDS: TAMSULOSIN HCL 0.4 MG CAP PO SCH (21:48)
[2017-03-09] MEDS: DONEPEZIL HCL 5 MG TAB PO SCH (21:49)
[2017-03-09] MEDS: ATORVASTATIN 10 MG TAB PO SCH (21:51)
[2017-03-09] MEDS: GABAPENTIN 400 MG CAP PO SCH (21:52)
[2017-03-10 04:40] VITALS: BP 116/61; PULSE 60; RESP 18; TEMP 97.8; O2SAT 96
[2017-03-10] MEDS: CARBIDOPA/LEVODOPA 25 MG/100 MG TAB PO SCH ×3 (06:08→20:27)
[2017-03-10 07:25] VITALS: BP 103/60; PULSE 60; RESP 15; TEMP 98; O2SAT 96
[2017-03-10] MEDS: FUROSEMIDE 40 MG TAB PO SCH ×2 (09:57→20:27)
[2017-03-10] MEDS: DOCUSATE SODIUM 50 MG/SENNA 8.6 MG TAB PO SCH ×2 (09:57→20:26)
[2017-03-10] MEDS: RIVAROXABAN 20 MG TAB PO SCH (09:57)
[2017-03-10] MEDS: FOLIC ACID 1 MG TAB PO SCH (09:57)
[2017-03-10] MEDS: FINASTERIDE 5 MG TAB PO SCH (09:57)
[2017-03-10] MEDS: DIGOXIN 0.125 MG TAB PO SCH (09:57)
[2017-03-10] MEDS: levETIRAcetam 500 MG TAB PO SCH ×2 (09:57→20:30)
[2017-03-10] MEDS: SERTRALINE HCL 50 MG TAB PO SCH (09:57)
[2017-03-10] MEDS: SODIUM CHLORIDE 0.9% FLUSH 10 ML FLUSH IV FLUSH SCH ×2 (09:58→21:00)
--- NOTE | 2017-03-10 10:14 | HHI.PR ---
Subjective Remarks Follow up for generalized weakness and pneumonia. The patient is seen sitting upright in bed eating breakfast. Son is at bedside. He reports occasional nonproductive cough. Denies fevers/chills. Had a BM yesterday, denies diarrhea. Denies any other medical complaints. Son adamantly wants patient to go to rehab ; he reports the patient can only take 2-3 steps. Objective Vitals Vital Signs Date Time Temp Pulse Resp B/P Pulse Ox O2 Delivery O2 Flow Rate FiO2 03/10/17 07:25 98.0 60 15 103/60 96 03/10/17 04:40 97.8 60 18 116/61 96 03/09/17 20:28 98.0 73 18 120/70 95 03/09/17 16:09 97.9 62 16 163/80 97 03/09/17 11:28 97.8 60 18 152/72 98 Result Diagram: 03/09/17 0850 03/09/17 0850 Imaging Last Impressions Chest X-Ray 03/08/17 1822 Signed Impressions: Service Date/Time: March 18:18 - CONCLUSION: Persistent, slightly larger interstitial infiltrate in the lateral right midlung when compared to 10/21/15. No evidence of pleural effusion. The left lung is clear. Juan Sanders MD Objective Remarks GENERAL: Frail elderly male patient in [facility]. SKIN: Warm and dry. No rash. Multiple upper extremity skin tears, covered with dressings, CDI. HEENT: Normocephalic. Atraumatic.Pupils equal and round. Mucous membranes pink and moist. CARDIOVASCULAR: Regular rate and rhythm. S1, S2 noted. No murmur appreciated. RESPIRATORY: No accessory muscle use. Clear to auscultation. Breath sounds equal bilaterally. GASTROINTESTINAL: Abdomen soft, non-tender, nondistended. Normoactive bowel sounds x4. MUSCULOSKELETAL: No obvious deformities. Extremities without clubbing, cyanosis , or edema. NEUROLOGICAL: Awake and alert. No obvious cranial nerve deficits. Motor grossly within normal limits. Strength 3/5 LUE, 4/5 RUE, 2/5 LLE, 3/5 RLE. Normal speech. PSYCHIATRIC: Appropriate mood and affect; insight and judgment fair to normal. Medications and IVs Current Medications Medications (Trade) Dose Ordered Sig/Mariam Route Start Time Stop Time Status Last Admin (NS Flush) 2 ml UNSCH PRN IV FLUSH 03/08/17 21:00 (NS Flush) 2 ml BID IV FLUSH 03/08/17 21:00 03/10/17 09:58 (Zofran Inj) 4 mg Q6H PRN IVP 03/08/17 21:00 (Tylenol) 650 mg Q6H PRN PO 03/08/17 21:00 ([place] 5-325 Mg) 1 tab Q4H PRN PO 03/08/17 21:00 ([place] 7.5-325 Mg) 1 tab Q4H PRN PO 03/08/17 21:00 (Mariama-Colace) 1 tab BID PO 03/08/17 21:00 03/10/17 09:57 (Milk Of Magnesia Liq) 30 ml Q12H PRN PO 03/08/17 21:00 (Senokot) 17.2 mg Q12H PRN PO 03/08/17 21:00 (Dulcolax Supp) 10 mg DAILY PRN RECTAL 03/08/17 21:00 (Lactulose Liq) 30 ml DAILY PRN PO 03/08/17 21:00 (Lipitor) 10 mg HS PO 03/09/17 21:00 03/09/17 21:51 (Sinemet 25-100 Mg) 1 tab Q8HR PO 03/09/17 06:00 03/10/17 06:08 (Lanoxin) 0.125 mg DAILY PO 03/09/17 09:00 03/10/17 09:57 (Aricept) 5 mg HS PO 03/09/17 21:00 03/09/17 21:49 (Proscar) 5 mg DAILY PO 03/09/17 09:00 03/10/17 09:57 (Flonase Sánchez Spr) 1 spray DAILY EACH NARE 03/09/17 09:00 03/09/17 09:00 (Folate) 1 mg DAILY PO 03/09/17 09:00 03/10/17 09:57 (Lasix) 40 mg BID PO 03/09/17 09:00 03/10/17 09:57 (Neurontin) 400 mg HS PO 03/09/17 21:00 03/09/17 21:52 (Keppra) 500 mg BID PO 03/09/17 09:00 03/10/17 09:57 (Xarelto) 20 mg DAILY PO 03/09/17 09:00 03/10/17 09:57 (Zoloft) 25 mg DAILY PO 03/09/17 09:00 03/10/17 09:57 (Flomax) 0.4 mg HS PO 03/09/17 21:00 03/09/17 21:48 (Pill Splitter) 1 ea UNSCH PRN OTHER 03/09/17 00:30 (Avelox) 400 mg Q24H PO 03/09/17 12:00 03/09/17 13:40 A/P Problem List: (1) PNA (pneumonia) ICD Code: J18.9 Status: Acute (2) Gait instability ICD Code: R26.81 Status: Acute (3) Dementia ICD Code: F03.90 Status: Chronic Assessment and Plan 86-year-old male with PMH of HTN, HLD, A. fib on Xarelto, h/o CVA and h/o AVR who was brought to the ER by family secondary to generalized weakness PNA: CXR w/ larger interstitial infiltrate lateral right mid lung when compared to previous image from October, personally reviewed. Afebrile, no leukocytosis. Continue antibiotics with oral moxifloxacin. DuoNeb prn. O2 sat stable on room air. Generalized weakness/Gait Instability, Failed Outpatient: Secondary to deconditioning and residual left-sided weakness from previous stroke. Recently d/c'd early from rehab, reportedly only at rehab for 1.5weeks then d/philip home, however failed [facility], who reportedly recommended SNF placement. PT consulted, recommends rehab placement. Case Management consulted to assist with placement. Dementia: Chronic. Seemingly at baseline. Continue home medications. Recent history of dysphasia: Patient with recent admission and found to have silent aspiration. GI performed EGD with dilation. Consult speech therapy for swallow eval. DVT Prophylaxis: Continue on Xarelto for A. fib Discharge Planning 0955hrs: Patient is medically stable for discharge, needs rehab placement. Case management assisting with discharge planning. Hemalatha Hanson PA-C Mar 10, 2017 10:14 am
[2017-03-10 11:18] VITALS: BP 94/51; PULSE 56; RESP 15; TEMP 97.7; O2SAT 95
[2017-03-10] MEDS: FLUTICASONE PROPIONATE 50 MCG/ACT 16 GM NASAL SPRAY EACH NARE SCH (13:21)
[2017-03-10] MEDS: MOXIFLOXACIN HYDROCHLORIDE 400 MG TAB PO SCH (13:22)
[2017-03-10 14:34] VITALS: BP 131/61; PULSE 60; RESP 16; TEMP 97.9; O2SAT 97
[2017-03-10] MEDS: ATORVASTATIN 10 MG TAB PO SCH (20:21)
[2017-03-10] MEDS: GABAPENTIN 400 MG CAP PO SCH (20:26)
[2017-03-10] MEDS: DONEPEZIL HCL 5 MG TAB PO SCH (20:29)
[2017-03-10 20:43] VITALS: BP 128/74; PULSE 74; RESP 18; TEMP 97.8; O2SAT 97
[2017-03-10] MEDS: TAMSULOSIN HCL 0.4 MG CAP PO SCH (21:23)
[2017-03-10 23:43] VITALS: BP 102/56; PULSE 60; RESP 18; TEMP 97.5; O2SAT 95
[2017-03-11 03:24] VITALS: BP 97/56; PULSE 60; RESP 17; TEMP 97.4; O2SAT 95
[2017-03-11] MEDS: CARBIDOPA/LEVODOPA 25 MG/100 MG TAB PO SCH ×3 (06:20→21:41)
[2017-03-11 07:32] VITALS: BP 104/59; PULSE 65; RESP 15; TEMP 97.2; O2SAT 95
[2017-03-11] MEDS: FINASTERIDE 5 MG TAB PO SCH (09:23)
[2017-03-11] MEDS: levETIRAcetam 500 MG TAB PO SCH ×2 (09:23→21:41)
[2017-03-11] MEDS: FUROSEMIDE 40 MG TAB PO SCH ×2 (09:23→21:41)
[2017-03-11] MEDS: FOLIC ACID 1 MG TAB PO SCH (09:23)
[2017-03-11] MEDS: FLUTICASONE PROPIONATE 50 MCG/ACT 16 GM NASAL SPRAY EACH NARE SCH (09:24)
[2017-03-11] MEDS: DIGOXIN 0.125 MG TAB PO SCH (09:24)
[2017-03-11] MEDS: SERTRALINE HCL 50 MG TAB PO SCH (09:24)
[2017-03-11] MEDS: RIVAROXABAN 20 MG TAB PO SCH (09:24)
[2017-03-11] MEDS: DOCUSATE SODIUM 50 MG/SENNA 8.6 MG TAB PO SCH ×2 (09:24→21:41)
[2017-03-11] MEDS: SODIUM CHLORIDE 0.9% FLUSH 10 ML FLUSH IV FLUSH SCH ×2 (09:24→21:41)
--- NOTE | 2017-03-11 12:27 | HHI.PR ---
Subjective Remarks Follow up for generalized weakness. The patient has no specific medical complaints. Nursing staff reports minimal oral intake today. Discussed with patient adding Ensure to meals, he agrees, prefers [employer] flavor. Otherwise he denies any fevers/chills, cough, shortness of breath, chest pain, or abdominal pains. Objective Vitals Vital Signs Date Time Temp Pulse Resp B/P Pulse Ox O2 Delivery O2 Flow Rate FiO2 03/11/17 11:56 17 03/11/17 07:32 97.2 65 15 104/59 95 03/11/17 03:24 97.4 60 17 97/56 95 03/10/17 23:43 97.5 60 18 102/56 95 03/10/17 20:43 97.8 74 18 128/74 97 03/10/17 14:34 97.9 60 16 131/61 97 Result Diagram: 03/09/17 0850 03/09/17 0850 Imaging Last Impressions Chest X-Ray 03/08/17 1822 Signed Impressions: Service Date/Time: March 18:18 - CONCLUSION: Persistent, slightly larger interstitial infiltrate in the lateral right midlung when compared to 10/21/15. No evidence of pleural effusion. The left lung is clear. Juan Sanders MD Objective Remarks GENERAL: Frail elderly male patient in [facility]. SKIN: Warm and dry. No rash. Multiple upper extremity skin tears, covered with dressings, CDI. HEENT: Normocephalic. Atraumatic.Pupils equal and round. Mucous membranes pink and moist. CARDIOVASCULAR: Regular rate and rhythm. S1, S2 noted. No murmur appreciated. RESPIRATORY: No accessory muscle use. Clear to auscultation. Breath sounds equal bilaterally. GASTROINTESTINAL: Abdomen soft, non-tender, nondistended. Normoactive bowel sounds x4. MUSCULOSKELETAL: No obvious deformities. Extremities without clubbing, cyanosis , or edema. NEUROLOGICAL: Awake and alert. No obvious cranial nerve deficits. Motor grossly within normal limits. Strength 3/5 LUE, 4/5 RUE, 2/5 LLE, 4/5 RLE. Normal speech. PSYCHIATRIC: Appropriate mood and affect; insight and judgment fair to normal. Medications and IVs Current Medications Medications (Trade) Dose Ordered Sig/Maria M Route Start Time Stop Time Status Last Admin (NS Flush) 2 ml UNSCH PRN IV FLUSH 03/08/17 21:00 (NS Flush) 2 ml BID IV FLUSH 03/08/17 21:00 03/11/17 09:24 (Zofran Inj) 4 mg Q6H PRN IVP 03/08/17 21:00 (Tylenol) 650 mg Q6H PRN PO 03/08/17 21:00 ([place] 5-325 Mg) 1 tab Q4H PRN PO 03/08/17 21:00 03/11/17 10:35 ([place] 7.5-325 Mg) 1 tab Q4H PRN PO 03/08/17 21:00 (Mariama-Colace) 1 tab BID PO 03/08/17 21:00 03/11/17 09:24 (Milk Of Magnesia Liq) 30 ml Q12H PRN PO 03/08/17 21:00 (Senokot) 17.2 mg Q12H PRN PO 03/08/17 21:00 (Dulcolax Supp) 10 mg DAILY PRN RECTAL 03/08/17 21:00 (Lactulose Liq) 30 ml DAILY PRN PO 03/08/17 21:00 (Lipitor) 10 mg HS PO 03/09/17 21:00 03/10/17 20:21 (Sinemet 25-100 Mg) 1 tab Q8HR PO 03/09/17 06:00 03/11/17 06:20 (Lanoxin) 0.125 mg DAILY PO 03/09/17 09:00 03/11/17 09:24 (Aricept) 5 mg HS PO 03/09/17 21:00 03/10/17 20:29 (Proscar) 5 mg DAILY PO 03/09/17 09:00 03/11/17 09:23 (Flonase Sánchez Spr) 1 spray DAILY EACH NARE 03/09/17 09:00 03/11/17 09:24 (Folate) 1 mg DAILY PO 03/09/17 09:00 03/11/17 09:23 (Lasix) 40 mg BID PO 03/09/17 09:00 03/11/17 09:23 (Neurontin) 400 mg HS PO 03/09/17 21:00 03/10/17 20:26 (Keppra) 500 mg BID PO 03/09/17 09:00 03/11/17 09:23 (Xarelto) 20 mg DAILY PO 03/09/17 09:00 03/11/17 09:24 (Zoloft) 25 mg DAILY PO 03/09/17 09:00 03/11/17 09:24 (Flomax) 0.4 mg HS PO 03/09/17 21:00 03/10/17 21:23 (Pill Splitter) 1 ea UNSCH PRN OTHER 03/09/17 00:30 A/P Problem List: (1) PNA (pneumonia) ICD Code: J18.9 Status: Acute (2) Gait instability ICD Code: R26.81 Status: Acute (3) Dementia ICD Code: F03.90 Status: Chronic Assessment and Plan 86-year-old male with PMH of HTN, HLD, A. fib on Xarelto, h/o CVA and h/o AVR who was brought to the ER by family secondary to generalized weakness PNA: CXR w/ larger interstitial infiltrate lateral right mid lung when compared to previous image from October, personally reviewed. Afebrile, no leukocytosis. Given antibiotics with moxifloxacin, however discussed with Dr. Park, patient is afebrile, no leukocytosis, O2 sat stable on room air, infiltrate likely scarring, doubt true pneumonia, discontinued antibiotics. Generalized weakness/Gait Instability, Failed Outpatient: Secondary to deconditioning and residual left-sided weakness from previous stroke. Only at rehab for 1.5weeks then d/philip home, however failed [facility], who reportedly recommended SNF placement. PT consulted, recommends rehab placement. Case Management consulted to assist with placement. Dementia: Chronic. Seemingly at baseline. Continue home medications. Recent history of dysphagia: Patient with recent admission and found to have silent aspiration. GI performed EGD with dilation. ST recommends mechanical soft with honey thickened liquids. All other medical conditions stable, continue home medications as appropriate. DVT Prophylaxis: Continue on Xarelto for A. fib Discharge Planning Patient is medically stable for discharge, needs rehab placement. Case management assisting with discharge planning. Patient's son also involved, appealing [employer]'s decision to deny SNF placement. Hemalatha Hanson PA-C Mar 11, 2017 12:27 pm
[2017-03-11 12:33] VITALS: BP 99/57; PULSE 62; RESP 15; TEMP 98.2; O2SAT 95
[2017-03-11 15:53] VITALS: BP 97/56; PULSE 60; RESP 15; TEMP 98.4; O2SAT 94
[2017-03-11 19:41] VITALS: BP 116/58; PULSE 60; RESP 18; TEMP 98.3; O2SAT 94
[2017-03-11] MEDS: DONEPEZIL HCL 5 MG TAB PO SCH (21:41)
[2017-03-11] MEDS: ATORVASTATIN 10 MG TAB PO SCH (21:41)
[2017-03-11] MEDS: GABAPENTIN 400 MG CAP PO SCH (21:41)
[2017-03-11] MEDS: TAMSULOSIN HCL 0.4 MG CAP PO SCH (21:41)
[2017-03-11 23:50] VITALS: BP 100/57; PULSE 60; RESP 18; TEMP 97.8; O2SAT 95
[2017-03-12 05:17] VITALS: BP 110/57; PULSE 59; RESP 18; TEMP 98.4; O2SAT 97
[2017-03-12] MEDS: CARBIDOPA/LEVODOPA 25 MG/100 MG TAB PO SCH ×2 (06:22→15:11)
[2017-03-12 08:04] VITALS: BP 103/55; PULSE 67; RESP 18; TEMP 96.5; O2SAT 94
[2017-03-12] MEDS: SERTRALINE HCL 50 MG TAB PO SCH (09:30)
[2017-03-12] MEDS: FUROSEMIDE 40 MG TAB PO SCH (09:30)
[2017-03-12] MEDS: levETIRAcetam 500 MG TAB PO SCH (09:30)
[2017-03-12] MEDS: DIGOXIN 0.125 MG TAB PO SCH (09:30)
[2017-03-12] MEDS: FOLIC ACID 1 MG TAB PO SCH (09:31)
[2017-03-12] MEDS: FINASTERIDE 5 MG TAB PO SCH (09:31)
[2017-03-12] MEDS: DOCUSATE SODIUM 50 MG/SENNA 8.6 MG TAB PO SCH (09:31)
[2017-03-12] MEDS: RIVAROXABAN 20 MG TAB PO SCH (09:32)
[2017-03-12] MEDS: SODIUM CHLORIDE 0.9% FLUSH 10 ML FLUSH IV FLUSH SCH (09:33)
[2017-03-12] MEDS: FLUTICASONE PROPIONATE 50 MCG/ACT 16 GM NASAL SPRAY EACH NARE SCH (09:34)
[2017-03-12 12:08] VITALS: BP 99/56; PULSE 60; RESP 18; TEMP 98.7; O2SAT 95
[2017-03-12 16:28] VITALS: BP 111/55; PULSE 62; RESP 16; TEMP 95.9; O2SAT 95
--- NOTE | 2017-03-12 23:18 | HHI.DS ---
Discharge Summary Admission Date Mar 08, 2017 at 20:31 Discharge Date: Mar 12, 2017 Admitting Diagnosis Pneumonia (1) PNA (pneumonia) ICD Code: J18.9 (2) Gait instability ICD Code: R26.81 (3) Dementia ICD Code: F03.90 Procedures None. Brief History - From Admission This is an 86-year-old male with PMH of HTN, A. fib on Xarelto, Hyperlipidemia, h/o CVA and h/o AVR who was brought to the ER by family secondary to generalized weakness. Per family, pt w/ progressive weakness, family unable to care for patient. Recent admit 02/13-02/16/17 secondary to Dysphagia, Aphasia/ Confusion and UTI. S/p EGD w/ dilatation and treated for UTI, eval by Neurology and started on Sinemet for suspected Parkinson's Disease. Was d/c'd to SNF and recently d/c'd home, however family reports progressive decline. [facility] has evaluated pt and recommended pt be sent to Rehab Facility, however PCP has not completed forms per family. On arrival, BP 118/58, HR 62, O2 sat 94% on RA, Afebrile. CBC unremarkable. Chemistry essentially unremarkable. GFR 71. UA negative. CXR persistent interstitial infiltrate lateral right mid lung, no effusion. S/p Rocephin/Zithro in ER. CBC/BMP: 03/09/17 0850 03/09/17 0850 Imaging Last Impressions Chest X-Ray 03/08/17 1822 Signed Impressions: Service Date/Time: March 18:18 - CONCLUSION: Persistent, slightly larger interstitial infiltrate in the lateral right midlung when compared to 10/21/15. No evidence of pleural effusion. The left lung is clear. Juan Sanders MD PE at Discharge GENERAL: Frail elderly male patient in [facility]. SKIN: Warm and dry. No rash. Multiple upper extremity skin tears, covered with dressings, CDI. HEENT: Normocephalic. Atraumatic.Pupils equal and round. Mucous membranes pink and moist. CARDIOVASCULAR: Regular rate and rhythm. S1, S2 noted. No murmur appreciated. RESPIRATORY: No accessory muscle use. Clear to auscultation. Breath sounds equal bilaterally. GASTROINTESTINAL: Abdomen soft, non-tender, nondistended. Normoactive bowel sounds x4. MUSCULOSKELETAL: No obvious deformities. Extremities without clubbing, cyanosis , or edema. NEUROLOGICAL: Awake and alert. No obvious cranial nerve deficits. Motor grossly within normal limits. Strength 3/5 LUE, 4/5 RUE, 2/5 LLE, 4/5 RLE. Normal speech. PSYCHIATRIC: Appropriate mood and affect; insight and judgment fair to normal. Pt update on day of discharge Mr. Hair is resting in bed. Doing well. No acute concerns. Denies any fever, chills. Hospital Course 86-year-old male with PMH of HTN, HLD, A. fib on Xarelto, h/o CVA and h/o AVR who was brought to the ER by family secondary to generalized weakness PNA: CXR w/ larger interstitial infiltrate lateral right mid lung when compared to previous image from October, personally reviewed. Afebrile, no leukocytosis. Given antibiotics with moxifloxacin, however discussed with Dr. Park, patient is afebrile, no leukocytosis, O2 sat stable on room air, infiltrate likely scarring, doubt true pneumonia, discontinued antibiotics. Generalized weakness/Gait Instability, Failed Outpatient: Secondary to deconditioning and residual left-sided weakness from previous stroke. Only at rehab for 1.5weeks then d/philip home, however failed [facility], who reportedly recommended SNF placement. PT consulted, recommends rehab placement. Case Management consulted to assist with placement. Dementia: Chronic. Seemingly at baseline. Continue home medications. Recent history of dysphagia: Patient with recent admission and found to have silent aspiration. GI performed EGD with dilation. ST recommends mechanical soft with honey thickened liquids. All other medical conditions stable, continue home medications as appropriate. DVT Prophylaxis: Continue on Xarelto for A. fib Patient did not quite meet the criteria for in-patient admission. I discussed with the case with a very pleasant doctor from [facility]. After discussing with [facility] physician, we both agreed that given patient's son desire, it would be reasonable to send patient to SNF with the understanding that in about 72 hours , a re-assessment will be done. If there is no improvement after 72 hours, there is no point in continuing patient care at SNF. Patient will likely need a fci care. We also conveyed to the patient that hospice is an option where patient would get a lot of support and most likely his quality of life would be better. Son decided to go with SNF with the understanding that his father will be re-assessed in 72 hours to see if SNF would be of any benefit. Patient was subsequently discharged to SNF. Pt Condition on Discharge: Stable Discharge Disposition: Discharge to SNF Discharge Time: > 30 minutes Discharge Instructions DIET: Follow Instructions for: Heart Healthy Diet Speech Therapy-Diet Recommends: Honey Thickened Liquids, Mechanical Soft Activities you can perform: Regular-No Restrictions Follow up Referrals: PCP Follow-up - 2-3 Days with Mabel Matos MD Continued Medications: Atorvastatin (Atorvastatin) 10 Mg Tab 10 MG PO HS Cholesterol Management #30 Ref 0 TAB Carbidopa-Levodopa (Carbidopa-Levodopa) 25-100 Mg Tab 1 TAB PO Q8HR parkinson's Days 30 Ref 0 TAB Cyanocobalamin (Vitamin B-12) 1,000 Mcg Subl 1000 MCG SL DAILY Nutritional Supplement Ref 0 TAB.SL Digoxin (Digoxin) 0.125 Mg Tab 0.125 MG PO DAILY Regulate Heart Beat #30 Ref 0 TAB Donepezil (Aricept) 23 Mg Tab 5 MG PO HS Do not split, crushed or chewed. TAB Finasteride (Proscar) 5 Mg Tab 5 MG PO DAILY Do not crush. Manage Prostate Problems #30 Ref 0 TAB Fluticasone Nasal [place] (Flonase Allergy Relief Children Nasal [place]) 50 Mcg/ Act [place] 1 SPRAY EACH NARE DAILY 50 mcg/spray Allergy Management #1 Ref 0 BOTTLE Folic Acid (Folic Acid) 800 Mcg Tab 1 MG PO DAILY Nutritional Supplement Ref 0 TAB Furosemide (Furosemide) 40 Mg Tab 40 MG PO BID #60 Ref 0 TAB Gabapentin (Gabapentin) 400 Mg Cap 400 CAP PO HS #30 Ref 0 CAP Levetiracetam (Levetiracetam) 500 Mg Tab 500 MG PO BID Control Seizures #60 Ref 0 TAB Rivaroxaban (Xarelto) 20 Mg Tab 20 MG PO DAILY Blood Clot Prevention Ref 0 TAB Sertraline (Sertraline) 50 Mg Tab 25 MG PO DAILY #30 Ref 0 TAB Tamsulosin (Flomax) 0.4 Mg Cap 0.4 MG PO HS Manage Prostate Problems #30 Ref 0 CAP Discontinued Medications: Donepezil (Donepezil) 5 Mg Tab 5 MG PO HS Dementia #30 Ref 0 TAB Potassium Chloride ER (Potassium Chloride ER) 20 Meq Tab 20 MEQ PO BID Electrolyte Replacement #60 Ref 0 TAB Rian Núñez DO Mar 12, 2017 23:18
== END 2017-03-12 18:46 ==
LOC: NEPD 17:23 → NEDA 20:31 → NEPHCDU 22:44
PROVIDERS: ADMIT Hospitalist; ATTEND Hospitalist
DX: J18.9 Pneumonia, unspecified organism (principal); R26.81 Unsteadiness on feet; E86.0 Dehydration; F03.90 Unspecified dementia, unspecified severity, without behavioral disturbance, psychotic disturbance, mood disturbance, and anxiety; R94.31 Abnormal electrocardiogram [ECG] [EKG]; R07.9 Chest pain, unspecified; I25.10 Atherosclerotic heart disease of native coronary artery without angina pectoris; I11.0 Hypertensive heart disease with heart failure; I50.9 Heart failure, unspecified; E78.5 Hyperlipidemia, unspecified; E78.00 Pure hypercholesterolemia, unspecified; I48.91 Unspecified atrial fibrillation; Z79.01 Long term (current) use of anticoagulants; Z86.73 Personal history of transient ischemic attack (TIA), and cerebral infarction without residual deficits; Z95.0 Presence of cardiac pacemaker; Z79.899 Other long term (current) drug therapy; Z95.1 Presence of aortocoronary bypass graft; Z95.2 Presence of prosthetic heart valve; Z85.828 Personal history of other malignant neoplasm of skin
CPT/HCPCS: 71010; 80053; 81001; 82550; 83735; 83880; 84484; 85025; 85610; 85730; 92526; 92610; 93005; 96361; 96365; 96366; 97163; 99285; G0378; G8987; G8988; G8996; G8997; G8998; J0456; J2543; J7040; J7050

== ENCOUNTER 2017-09-06 18:34 | Inpatient (IN) | payer OTHER, MEDICARE ==
[~2017-09-06] VITALS: Ht 180.3 cm; Wt 62.0 kg
[~2017-09-06 18:34] MED LIST changes: +ARIC23TA PO; -ARIC5TAB PO; -CIPR250T52 PO; -POTA-163 PO
[2017-09-06 18:35] VITALS: BP 143/81; PULSE 60; RESP 15; TEMP 96.6; O2SAT 94
[2017-09-06] MEDS ORDERED: VANCOMYCIN INJ 1,000 MG in SODIUM CHLOR 0.9% 250 ML INJ 250 ML IV ONE (21:00)
--- NOTE | 2017-09-06 21:06 | PD ---
HPI Chief Complaint: Skin Problem Time Seen by Provider: 20:53 Travel History International Travel<30 days: No Contact w/Intl Traveler<30days: No Traveled to known affect area: No History of Present Illness HPI 87-year-old male with history of HTN, A. fib on Xarelto, HLD, CVA, AVR, here with his son for evaluation of generalized weakness and possible left arm/elbow cellulitis. The patient has several areas of sebaceous cysts. A couple days ago the cyst on his left elbow apparently it popped and then stent has had some purulent drainage. The patient reports that he occasionally has pain in his left arm. Patient's son also reports that the patient has had generalized weakness and malaise over the last couple of days. He has not had a fever or chills. PFSH Past Medical History Hx Anticoagulant Therapy: Yes Arthritis: No Atrial Fibrillation: Yes Blood Disorders: No Anxiety: No Depression: No Heart Rhythm Problems: Yes (AFIB ) Cancer: No Cardiac Catheterization: Yes Cardiovascular Problems: Yes High Cholesterol: Yes Chest Pain: No Congestive Heart Failure: Yes Cerebrovascular Accident: Yes Coronary Artery Disease: Yes Diminished Hearing: No Endocrine: No Gastrointestinal Disorders: Yes Genitourinary: Yes (INCONTINENT ) Headaches: Yes Hypertension: Yes Immune Disorder: No Implanted Vascular Access Dvce: Yes Musculoskeletal: No Neurologic: Yes (CVA APPROX 10 YEARS AGO ) Psychiatric: No Reproductive: No Respiratory: No Integumentary: Yes Migraines: No Pneumonia: Yes Renal Failure: No Seizures: No Past Surgical History Abdominal Surgery: No Body Medical Devices: PACEMAKER Cardiac Surgery: Yes (PACEMAKER ON DEMAND) Coronary Artery Bypass Graft: Yes (X 1 IN 1994) Endocrine Surgery: No Eye Surgery: No Genitourinary Surgery: No Gynecologic Surgery: No Neurologic Surgery: No Oral Surgery: No Pacemaker: Yes Thoracic Surgery: No Valve Replacement: Yes Other Surgery: Yes (CYST (pilonidal)) Social History Alcohol Use: Yes ("MAYBE 2 DRINKS A WEEK") Tobacco Use: No (QUIT 50 YEARS AGO) Substance Use: No Allergies-Medications (Allergen,Severity, Reaction): Coded Allergies: No Known Allergies (Verified Adverse Reaction, Unknown, 09/06/17) Reported Meds & Prescriptions Reported Meds & Active Scripts Active Carbidopa-Levodopa 25-100 Mg Tab 1 Tab PO Q8HR 30 Days Reported Aricept (Donepezil) 23 Mg Tab 5 Mg PO HS Do not split, crushed or chewed. Vitamin B-12 (Cyanocobalamin) 1,000 Mcg Subl 1,000 Mcg SL DAILY Folic Acid 800 Mcg Tab 1 Mg PO DAILY Xarelto (Rivaroxaban) 20 Mg Tab 20 Mg PO DAILY Sertraline (Sertraline HCl) 50 Mg Tab 25 Mg PO DAILY Proscar (Finasteride) 5 Mg Tab 5 Mg PO DAILY Do not crush. Levetiracetam 500 Mg Tab 500 Mg PO BID Gabapentin 400 Mg Cap 400 Cap PO HS Furosemide 40 Mg Tab 40 Mg PO BID Flomax (Tamsulosin HCl) 0.4 Mg Cap 0.4 Mg PO HS Digoxin 0.125 Mg Tab 0.125 Mg PO DAILY Atorvastatin (Atorvastatin Calcium) 10 Mg Tab 10 Mg PO HS Review of Systems Except as stated in HPI: all other systems reviewed are Neg Physical Exam Narrative GENERAL: Well-developed, well-nourished, elderly-appearing male, awake, alert, no apparent distress. SKIN: Upper back with 2 open sores that did not appear to be infected. Left posterior elbow/lateral forearm with mild erythema with one very tiny open wound /skin tear with clear/serous drainage, no purulent drainage, no fluctuance or induration, no crepitus. Several scars and chronic skin changes throughout. HEAD: Atraumatic. Normocephalic. EYES: Pupils equal and round. No scleral icterus. No injection or drainage. ENT: Mucous membranes pink and moist. NECK: Trachea midline. No JVD. CARDIOVASCULAR: Regular rate and rhythm. Distal pulses brisk and equal bilaterally. RESPIRATORY: No accessory muscle use. Clear to auscultation. Breath sounds equal bilaterally. GASTROINTESTINAL: Abdomen soft, non-tender, nondistended. MUSCULOSKELETAL: No obvious deformities. No clubbing. No cyanosis. No edema. Skin exam as above. Normal range of motion flexion and extension and supination and pronation of the left elbow. NEUROLOGICAL: Awake and alert. No obvious cranial nerve deficits. Motor grossly within normal limits. Normal speech. PSYCHIATRIC: Appropriate mood and affect; insight and judgment normal. Data Data Last Documented VS Vital Signs Date Time Temp Pulse Resp B/P (MAP) Pulse Ox O2 Delivery O2 Flow Rate FiO2 09/06/17 18:35 96.6 60 15 143/81 (101) 94 Orders Orders Sepsis Workup Initiated (09/06/17 ) Complete Blood Count With Diff (09/06/17 20:58) Comprehensive Metabolic Panel (09/06/17 20:58) Prothrombin Time / Inr (Pt) (09/06/17 20:58) Act Partial Throm Time (Ptt) (09/06/17 20:58) Lactic Acid Sepsis Protocol (09/06/17 20:58) Urinalysis - C+S If Indicated (09/06/17 20:58) Influenzae A/B Antigen (09/06/17 20:58) Blood Culture (09/06/17 20:58) Chest, Single Ap (09/06/17 20:58) Ecg Monitoring (09/06/17 20:58) Iv Access Insert/Monitor (09/06/17 20:58) Oximetry (09/06/17 20:58) Vancomycin Inj (Vancomycin Inj) (09/06/17 21:00) Forearm (2vws) (09/06/17 ) Cath For Specimen (09/06/17 21:06) B-Type Natriuretic Peptide (09/06/17 21:14) Piperacil-Tazo 3.375 Gm Premix (Zosyn 3. (09/06/17 22:45) Admit Order (Ed Use Only) (09/06/17 22:45) Labs Laboratory Tests Test 09/06/17 21:50 09/06/17 22:00 White Blood Count 6.7 TH/MM3 Red Blood Count 4.20 MIL/MM3 Hemoglobin 13.3 GM/DL Hematocrit 37.9 % Mean Corpuscular Volume 90.3 FL Mean Corpuscular Hemoglobin 31.7 PG Mean Corpuscular Hemoglobin Concent 35.1 % Red Cell Distribution Width 15.2 % Platelet Count 270 TH/MM3 Mean Platelet Volume 7.7 FL Neutrophils (%) (Auto) 71.6 % Lymphocytes (%) (Auto) 16.8 % Monocytes (%) (Auto) 6.8 % Eosinophils (%) (Auto) 3.8 % Basophils (%) (Auto) 1.0 % Neutrophils # (Auto) 4.8 TH/MM3 Lymphocytes # (Auto) 1.1 TH/MM3 Monocytes # (Auto) 0.5 TH/MM3 Eosinophils # (Auto) 0.3 TH/MM3 Basophils # (Auto) 0.1 TH/MM3 CBC Comment DIFF FINAL Differential Comment Prothrombin Time 12.7 SEC Prothromb Time International Ratio 1.3 RATIO Activated Partial Thromboplast Time 36.2 SEC Blood Urea Nitrogen 36 MG/DL Creatinine 1.12 MG/DL Random Glucose 114 MG/DL Total Protein 7.1 GM/DL Albumin 2.5 GM/DL Calcium Level 8.5 MG/DL Alkaline Phosphatase 186 U/L Aspartate Amino Transf (AST/SGOT) 19 U/L Alanine Aminotransferase (ALT/SGPT) 8 U/L Total Bilirubin 0.3 MG/DL Sodium Level 141 MEQ/L Potassium Level 3.9 MEQ/L Chloride Level 106 MEQ/L Carbon Dioxide Level 28.5 MEQ/L Anion Gap 7 MEQ/L Estimat Glomerular Filtration Rate 62 ML/MIN Lactic Acid Level 1.8 mmol/L B-Type Natriuretic Peptide 190 PG/ML Urine Color YELLOW Urine Turbidity CLEAR Urine pH 5.5 Urine Specific Donner 1.021 Urine Protein TRACE mg/dL Urine Glucose (UA) NEG mg/dL Urine Ketones NEG mg/dL Urine Occult Blood NEG Urine Nitrite NEG Urine Bilirubin NEG Urine Urobilinogen LESS THAN 2.0 MG/DL Urine Leukocyte Esterase NEG Urine RBC LESS THAN 1 /hpf Urine WBC 1 /hpf Urine Mucus FEW /lpf Microscopic Urinalysis Comment CATH-CULT NOT IND MDM Medical Decision Making Medical Screen Exam Complete: Yes Emergency Medical Condition: Yes Medical Record Reviewed: Yes Differential Diagnosis Cellulitis, abscess, chronic skin changes, pneumonia, influenza, UTI, necrotizing fasciitis unlikely Narrative Course Vital signs reviewed. Pulse ox on room air is 94%. CBC is essentially unremarkable. CMP is remarkable for alkaline phosphatase 186, otherwise essentially unremarkable. BNP is 190. UA is not suggestive of UTI. Left forearm x-ray: No acute disease. Degenerative changes. Chest x-ray: Moderate size right pleural effusion. Right mid and lower lung field patchiness consistent with possible pneumonia. Cardiomegaly. The patient was initially provided a dose of IV vancomycin empirically for slight cellulitis to his left forearm. There are no clinical signs of septic arthritis in the left elbow. After chest x-ray was read, the patient was also given a dose of Zosyn. Both the patient and the patient's family were made aware of all findings. He'll be admitted for further treatment and evaluation of pneumonia, right-sided pleural effusion, left forearm cellulitis. Case discussed with hospitalist Dr. Awad who will admit the patient to her service. Diagnosis Primary Impression: PNA (pneumonia) Qualified Codes: J18.9 - Pneumonia, unspecified organism Additional Impressions: Pleural effusion, right Cellulitis of left forearm Admitting Information Admitting Physician Requests: Admit Roel Castro MD Sep 06, 2017 21:06
[2017-09-06 22:03] LABS: AUTOMATED NEUTROPHIL # 4.8 TH/MM3 (1.8-7.7); BASOPHIL # 0.1 TH/MM3 (0-0.2); EOSINOPHIL # 0.3 TH/MM3 (0-0.4); EOSINOPHIL % 3.8 % (0.0-4.0); HEMATOCRIT 37.9 % (39.0-51.0); HEMOGLOBIN 13.3 GM/DL (13.0-17.0); LYMPH % 16.8 % (9.0-44.0); LYMPHOCYTE # 1.1 TH/MM3 (1.0-4.8); MEAN CELL VOLUME 90.3 FL (80.0-100.0); MEAN CORPUSCULAR HEMOGLOBIN 31.7 PG (27.0-34.0); MEAN CORPUSCULAR HGB CONC 35.1 % (32.0-36.0); MEAN PLATELET VOLUME 7.7 FL (7.0-11.0); MONO % 6.8 % (0.0-8.0); MONOCYTE # 0.5 TH/MM3 (0-0.9); NEUT % 71.6 % (16.0-70.0); PLATELET COUNT 270 TH/MM3 (150-450); RED CELL DISTRIBUTION WIDTH 15.2 % (11.6-17.2); WHITE BLOOD COUNT 6.7 TH/MM3 (4.0-11.0)
[2017-09-06 22:09] LABS: ALBUMIN 2.5 GM/DL (3.4-5.0); AST (GOT) 19 U/L (15-37); BICARBONATE 28.5 MEQ/L (21.0-32.0); BLOOD UREA NITROGEN 36 MG/DL (7-18); CALCIUM 8.5 MG/DL (8.5-10.1); CHLORIDE 106 MEQ/L (98-107); CREATININE 1.12 MG/DL (0.60-1.30); GLOMERULAR FILTRATION RATE 62 ML/MIN (>89); GLUCOSE,RANDOM 114 MG/DL (74-106); SODIUM (NA) 141 MEQ/L (136-145)
[2017-09-06 22:10] LABS: ALT (GPT) 8 U/L (12-78); INTERNATIONAL NORMALIZED RATIO 1.3 RATIO; PROTHROMBIN TIME - PATIENT 12.7 SEC (9.8-11.6)
--- NOTE | 2017-09-06 22:11 | RADRPT ---
EXAM DATE/TIME: 09/06/2017 21:10 [facility] COMPARISON: CHEST SINGLE AP, March 08, 2017, 18:18. INDICATIONS : Short of breath. MEDICAL HISTORY : Stroke. Congestive heart failure. Cardiovascular disease. Hypertension. SURGICAL HISTORY : CABG Pacemaker. ENCOUNTER: Initial ACUITY: 1 day PAIN SCORE: Non-responsive. LOCATION: Bilateral chest FINDINGS: There is a moderate-sized right pleural effusion. Right mid and lower lung field patchiness is noted consistent with possible pneumonia. The heart is enlarged. Left sided pacemaker is stable. The left l ave is clear. CONCLUSION: Moderate-sized right pleural effusion. Right mid and lower lung field patchiness consistent with poss ible pneumonia. Cardiomegaly. Delmar Connor MD on September 06, 2017 at 22:07 Board Certified Radiologist. This report was verified electronically.
[2017-09-06 22:13] LABS: ALKALINE PHOSPHATASE 186 U/L (45-117); TOTAL BILIRUBIN ADULT 0.3 MG/DL (0.2-1.0); TOTAL PROTEIN 7.1 GM/DL (6.4-8.2)
[2017-09-06 22:15] LABS: BILIRUBIN, URINE NEG (NEG); BLOOD, URINE NEG (NEG); GLUCOSE,URINE NEG (NEG); KETONE, URINE NEG (NEG); MUCUS URINE FEW /lpf (OCC); NITRITE,URINE NEG (NEG); PH, URINE 5.5 (5.0-8.5); URINE COLOR YELLOW (YELLW/STRAW); URINE LEUKOCYTE ESTERASE NEG (NEG)
--- NOTE | 2017-09-06 22:19 | RADRPT ---
EXAM DATE/TIME: 09/06/2017 21:18 [facility] COMPARISON: No previous studies available for comparison. INDICATIONS : Skin complaint. Pain. MEDICAL HISTORY : Congestive heart failure. Stroke. Cardiovascular disease. Hypertension. SURGICAL HISTORY : CABG. Pacemaker. ENCOUNTER: Initial ACUITY: 1 day PAIN SCORE: Non-responsive. LOCATION: Left upper extremity forearm FINDINGS: Two view examination of the left forearm demonstrates no evidence of fracture or dislocation. Bony m ineralization is normal. Degenerative changes are noted involving the scaphotrapezium and scaphotrap ezoid joints. The soft tissue structures are intact. CONCLUSION: No acute disease. Degenerative changes involving the scaphotrapezium and scaphotrape zoid joints. Delmar Connor MD on September 06, 2017 at 22:15 Board Certified Radiologist. This report was verified electronically.
[2017-09-06] MEDS ORDERED: PIPERACIL-TAZO 3.375 GM PREMIX 50 ML IV ONE (22:45)
[2017-09-06 23:10] VITALS: BP 101/57; PULSE 61; RESP 18; O2SAT 96
[2017-09-06] MEDS ORDERED: ACETAMINOPHEN 325 MG TAB PO PRN (23:45)
[2017-09-06] MEDS ORDERED: BISACODYL 10 MG SUPP RECTAL PRN (23:45)
[2017-09-06] MEDS ORDERED: SENNOSIDES 8.6 MG TAB PO PRN (23:45)
[2017-09-06] MEDS ORDERED: SODIUM CHLORIDE 0.9% FLUSH 10 ML FLUSH IV FLUSH PRN (23:45)
[2017-09-06] MEDS ORDERED: MAGNESIUM HYDROXIDE SUSP 30 ML CUP PO PRN (23:45)
[2017-09-06] MEDS ORDERED: HEPARIN SODIUM - SQ 10,000 UNITS/ML VIAL SQ SCH (23:45)
[2017-09-06] MEDS ORDERED: NALOXONE HCL 0.4 MG/ML AMP IV PUSH PRN (23:45)
[2017-09-06] MEDS ORDERED: Vancomycin Consult Pharmacy 1 EA OTHER SCH (23:45)
[2017-09-06] MEDS ORDERED: ONDANSETRON HCL 4 MG/2 ML VIAL IVP PRN (23:45)
[2017-09-06] MEDS ORDERED: LACTULOSE SYRUP 20 GM/30 ML CUP PO PRN (23:45)
[2017-09-07] VITALS (11 sets, daily range): BP systolic 100–174; BP diastolic 56–83; PULSE 59–81; RESP 16–20; TEMP 97–98.7; O2SAT 95–99
--- NOTE | 2017-09-07 04:09 | RADRPT ---
EXAM DATE/TIME: 09/07/2017 03:45 [facility] COMPARISON: CHEST SINGLE AP, September 06, 2017, 21:10. INDICATIONS : Shortness of breath, evaluate pleural effusion. RADIATION DOSE: 10.13 CTDIvol (mGy) MEDICAL HISTORY : Hypertension. Congestive heart failure. CAD. CVA. SURGICAL HISTORY : Pacemaker. CABG ENCOUNTER: Initial ACUITY: 1 day PAIN SCALE: 0/10 LOCATION: chest TECHNIQUE: Volumetric scanning of the chest was performed. Using automated exposure control and adjustment of t he mA and/or kV according to patient size, radiation dose was kept as low as reasonably achievable to obtain optimal diagnostic quality images. DICOM format image data is available electronically for r eview and comparison. Follow-up recommendations for detected pulmonary nodules are based at a minimum on nodule size and pa tient risk factors according to Fleischner Society Guidelines. FINDINGS: Emphysematous changes are noted. There is patchy atelectasis in the left lung base. There is a large right-sided pleural effusion and associated consolidation and atelectasis in the right lower lobe. Re identified in the right lung base is a partially calcified mass which is partially obscured by consol idation and effusion. Atherosclerotic calcifications of the aorta and coronary arteries are identifie d. There is aneurysmal dilatation of the ascending aorta which measures 4.4 x 4.4 cm in AP and transv erse dimension. There is ectasia of the infrarenal abdominal aorta up to 2.91 cm on axial image 69. 1 .2 cm precarinal node and a 1.4 cm short axis right paratracheal node, 2.1 cm short axis subcarinal a denopathy. CONCLUSION: Emphysema. Large right effusion and consolidation. 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 Thien Tyson MD on September 07, 2017 at 4:03 Board Certified Radiologist. This report was verified electronically.
--- NOTE | 2017-09-07 04:37 | HHI.HP ---
HPI Service [facility] Primary Care Physician Mabel Matos MD Admission Diagnosis pneumonia, pleural effusion, cellulitis Diagnoses: Travel History International Travel<30 Days: No Contact w/Intl Traveler <30 Da: No Traveled to Known Affected Are: No History of Present Illness 87-year-old male with a past medical history of atrial fibrillation on Xarelto, hyperlipidemia, Parkinson's disease, history of CVA and history of aVR presents to the emergency department for evaluation of a draining area on his left upper extremity. The patient reports that he has had left upper extremity pain and swelling for approximately 2 weeks. A couple of days ago the patient had a "cyst" over his elbow which popped and began to drain purulent material. Patient denies fever/chills. Endorses a cough 1 week. Denies shortness of breath or chest pain. Per ED notes, the patient's son was also concerned about increasing generalized weakness. Of note, the patient endorses a 50 pound weight loss over the past 2.5 months. Review of Systems Except as stated in HPI: all other systems reviewed are Neg Past Family Social History Past Medical History HTN, A. fib on Xarelto, Hyperlipidemia, h/o CVA and h/o AVR, Parkinson's disease Past Surgical History Pacemaker, Pilonidal Cyst, AVR Reported Medications Reported Meds & Active Scripts Active Carbidopa-Levodopa 25-100 Mg Tab 1 Tab PO Q8HR 30 Days Reported Aricept (Donepezil) 23 Mg Tab 5 Mg PO HS Do not split, crushed or chewed. Vitamin B-12 (Cyanocobalamin) 1,000 Mcg Subl 1,000 Mcg SL DAILY Folic Acid 800 Mcg Tab 1 Mg PO DAILY Xarelto (Rivaroxaban) 20 Mg Tab 20 Mg PO DAILY Sertraline (Sertraline HCl) 50 Mg Tab 25 Mg PO DAILY Proscar (Finasteride) 5 Mg Tab 5 Mg PO DAILY Do not crush. Levetiracetam 500 Mg Tab 500 Mg PO BID Gabapentin 400 Mg Cap 400 Cap PO HS Furosemide 40 Mg Tab 40 Mg PO BID Flomax (Tamsulosin HCl) 0.4 Mg Cap 0.4 Mg PO HS Digoxin 0.125 Mg Tab 0.125 Mg PO DAILY Atorvastatin (Atorvastatin Calcium) 10 Mg Tab 10 Mg PO HS Allergies: Coded Allergies: No Known Allergies (Verified Allergy, Unknown, 09/06/17) Family History Reviewed. No h/o DM or CAD Social History Remote history of smoking. Occasional alcohol. No illicit drugs. Physical Exam Vital Signs Vital Signs Date Time Temp Pulse Resp B/P (MAP) Pulse Ox O2 Delivery O2 Flow Rate FiO2 09/07/17 04:00 97.6 60 17 108/58 (75) 95 09/07/17 00:16 98.7 61 16 127/60 (82) 96 09/07/17 00:03 97.8 61 16 127/60 (82) 96 09/06/17 23:10 61 18 101/57 (72) 96 Room Air 09/06/17 18:35 96.6 60 15 143/81 (101) 94 Physical Exam GENERAL: Cachectic appearing male sitting up in bed SKIN: Left lateral forearm with mild erythema with small open wound draining serosanguineous drainage. No fluctuance or induration. Chronic skin changes on bilateral upper extremities. HEAD: Atraumatic. Normocephalic. No temporal or scalp tenderness. EYES: Pupils equal round and reactive. Extraocular motions intact. No scleral icterus. No injection or drainage. ENT: Nose without bleeding, purulent drainage or septal hematoma. Throat without erythema, tonsillar hypertrophy or exudate. Uvula midline. Airway patent. NECK: Trachea midline. No JVD or lymphadenopathy. Supple, nontender, no meningeal signs. CARDIOVASCULAR: Regular rate and rhythm without murmurs, gallops, or rubs. RESPIRATORY: Clear to auscultation in the anterior ortiz. GASTROINTESTINAL: Abdomen soft, non-tender, nondistended. No hepato-splenomegaly , or palpable masses. No guarding. MUSCULOSKELETAL: Extremities without clubbing, cyanosis, or edema. No joint tenderness, effusion, or edema noted. No calf tenderness. NEUROLOGICAL: Awake and alert. Cranial nerves II through XII intact. Motor and sensory grossly within normal limits. Normal speech. Laboratory Laboratory Tests Test 09/06/17 21:50 09/06/17 22:00 White Blood Count 6.7 Red Blood Count 4.20 Hemoglobin 13.3 Hematocrit 37.9 Mean Corpuscular Volume 90.3 Mean Corpuscular Hemoglobin 31.7 Mean Corpuscular Hemoglobin Concent 35.1 Red Cell Distribution Width 15.2 Platelet Count 270 Mean Platelet Volume 7.7 Neutrophils (%) (Auto) 71.6 Lymphocytes (%) (Auto) 16.8 Monocytes (%) (Auto) 6.8 Eosinophils (%) (Auto) 3.8 Basophils (%) (Auto) 1.0 Neutrophils # (Auto) 4.8 Lymphocytes # (Auto) 1.1 Monocytes # (Auto) 0.5 Eosinophils # (Auto) 0.3 Basophils # (Auto) 0.1 CBC Comment DIFF FINAL Differential Comment Prothrombin Time 12.7 Prothromb Time International Ratio 1.3 Activated Partial Thromboplast Time 36.2 Blood Urea Nitrogen 36 Creatinine 1.12 Random Glucose 114 Total Protein 7.1 Albumin 2.5 Calcium Level 8.5 Alkaline Phosphatase 186 Aspartate Amino Transf (AST/SGOT) 19 Alanine Aminotransferase (ALT/SGPT) 8 Total Bilirubin 0.3 Sodium Level 141 Potassium Level 3.9 Chloride Level 106 Carbon Dioxide Level 28.5 Anion Gap 7 Estimat Glomerular Filtration Rate 62 Lactic Acid Level 1.8 B-Type Natriuretic Peptide 190 Urine Color YELLOW Urine Turbidity CLEAR Urine pH 5.5 Urine Specific [place] 1.021 Urine Protein TRACE Urine Glucose (UA) NEG Urine Ketones NEG Urine Occult Blood NEG Urine Nitrite NEG Urine Bilirubin NEG Urine Urobilinogen LESS THAN 2.0 Urine Leukocyte Esterase NEG Urine RBC LESS THAN 1 Urine WBC 1 Urine Mucus FEW Microscopic Urinalysis Comment CATH-CULT NOT IND Date/Time Source Procedure Growth Status 09/06/17 21:30 Blood Peripheral Aerobic Blood Culture Pending Received 09/06/17 21:30 Blood Peripheral Anaerobic Blood Culture Pending Received 09/06/17 21:50 Nasal Aspirate Influenza Types A,B Antigen (CAMRYN) - Final NEGATIVE FOR FLU A AND B ANTIGEN.... Complete Result Diagram: 09/06/17214909/[id number]/172149 Caprini VTE Risk Assessment Caprini VTE Risk Assessment: Mod/High Risk (score >= 2) Caprini Risk Assessment Model Point Value = 1 Point Value = 2 Point Value = 3 Point Value = 5 Age 41-60 Minor surgery BMI > 25 kg/m2 Swollen legs Varicose veins or History of unexplained or recurrent spontaneous Oral contraceptives or hormone replacement Sepsis (< 1 month) Serious lung disease, including pneumonia (< 1 month) Abnormal pulmonary function Acute myocardial infarction Congestive heart failure (< 1 month) History of inflammatory bowel disease Medical patient at bed rest Age 61-74 Arthroscopic surgery Major open surgery (> 45 min) Laparoscopic surgery (> 45 min) Malignancy Confined to bed (> 72 hours) Immobilizing plaster cast Central venous access Age >= 75 History of VTE Family history of VTE Factor V Leiden Prothrombin [id number] Lupus anticoagulant Anticardiolipin antibodies Elevated serum homocysteine Heparin-induced thrombocytopenia Other congenital or acquired thrombophilia Stroke (< 1 month) Elective arthroplasty Hip, pelvis, or leg fracture Acute spinal cord injury (< 1 month) Prophylaxis Regimen Total Risk Factor Score Risk Level Prophylaxis Regimen 0-1 Low Early ambulation 2 Moderate Order ONE of the following: *Sequential Compression Device (SCD) *Heparin 5000 units SQ BID 3-4 Higher Order ONE of the following medications: *Heparin 5000 units SQ TID *Enoxaparin/Lovenox 40 mg SQ daily (WT < 150 kg, CrCl > 30 mL/min) *Enoxaparin/Lovenox 30 mg SQ daily (WT < 150 kg, CrCl > 10-29 mL/min) *Enoxaparin/Lovenox 30 mg SQ BID (WT < 150 kg, CrCl > 30 mL/min) AND/OR *Sequential Compression Device (SCD) 5 or more Highest Order ONE of the following medications: *Heparin 5000 units SQ TID (Preferred with Epidurals) *Enoxaparin/Lovenox 40 mg SQ daily (WT < 150 kg, CrCl > 30 mL/min) *Enoxaparin/Lovenox 30 mg SQ daily (WT < 150 kg, CrCl > 10-29 mL/min) *Enoxaparin/Lovenox 30 mg SQ BID (WT < 150 kg, CrCl > 30 mL/min) AND *Sequential Compression Device (SCD) Assessment and Plan Assessment and Plan Assessment/plan: 1. Pleural effusion Patient with new moderate sized right pleural effusion, as compared to previous chest x-ray on 03/08/17 Etiology undetermined, patient may benefit from diagnostic thoracentesis - Holding Xarelto CT chest pending 2. Pneumonia Chest x-ray significant for right mid and lower lung field infiltrates, personally reviewed Status post vancomycin/Zosyn in the emergency department Levaquin 3. Cellulitis Antibiotics as above 4. Atrial fibrillation Continue anticoagulation with Xarelto Continue home medications 5. Hyperlipidemia Continue home medications 6. Parkinson's disease Continue Sinemet FEN Heart healthy diet Electrolytes: Monitor and replete when necessary Holding pharmacologic anticoagulation for possible procedure Magui Awad MD Sep 07, 2017 04:37
[2017-09-07] MEDS: CARBIDOPA/LEVODOPA 25 MG/100 MG TAB PO SCH ×3 (05:33→22:28)
[2017-09-07] MEDS ORDERED: PIPERACIL-TAZO 4.5 GM PREMIX 100 ML IV SCH (06:00)
[2017-09-07 07:33] LABS: AUTOMATED NEUTROPHIL # 3.4 TH/MM3 (1.8-7.7); BASOPHIL % 0.8 % (0.0-2.0); EOSINOPHIL # 0.3 TH/MM3 (0-0.4); EOSINOPHIL % 6.1 % (0.0-4.0); HEMATOCRIT 35.7 % (39.0-51.0); HEMOGLOBIN 11.8 GM/DL (13.0-17.0); LYMPH % 18.2 % (9.0-44.0); LYMPHOCYTE # 0.9 TH/MM3 (1.0-4.8); MEAN CELL VOLUME 91.5 FL (80.0-100.0); MEAN CORPUSCULAR HEMOGLOBIN 30.2 PG (27.0-34.0); MEAN PLATELET VOLUME 7.7 FL (7.0-11.0); MONO % 9.5 % (0.0-8.0); MONOCYTE # 0.5 TH/MM3 (0-0.9); NEUT % 65.4 % (16.0-70.0); PLATELET COUNT 233 TH/MM3 (150-450); RED CELL DISTRIBUTION WIDTH 15.5 % (11.6-17.2); WHITE BLOOD COUNT 5.2 TH/MM3 (4.0-11.0)
[2017-09-07 07:49] LABS: BICARBONATE 24.8 MEQ/L (21.0-32.0); CALCIUM 8.3 MG/DL (8.5-10.1); CREATININE 0.71 MG/DL (0.60-1.30)
[2017-09-07] MEDS ORDERED: FUROSEMIDE 40 MG TAB PO SCH (09:00)
[2017-09-07] MEDS: levETIRAcetam 500 MG TAB PO SCH ×2 (09:01→22:27)
[2017-09-07] MEDS: LEVOFLOXACIN 750 MG PREMIX INJ 150 ML IV SCH (09:01)
[2017-09-07] MEDS: SODIUM CHLORIDE 0.9% FLUSH 10 ML FLUSH IV FLUSH SCH ×2 (09:01→22:28)
[2017-09-07] MEDS: FINASTERIDE 5 MG TAB PO SCH (09:01)
[2017-09-07] MEDS: DIGOXIN 0.125 MG TAB PO SCH (09:04)
[2017-09-07] MEDS: SERTRALINE HCL 50 MG TAB PO SCH (09:04)
--- NOTE | 2017-09-07 09:35 | HHI.PR ---
Subjective Remarks Follow-up visit atrial fibrillation on Xarelto, HLD, Parkinson's disease, HTN, pleural effusion, pneumonia, cellulitis left upper extremity. Patient seen and examined today lying in bed. Reports he is doing okay. States that he has some drainage on the left upper extremity but she doesn't know where it is as it is dry. Denies pain and discomfort. Denies SOB/ dyspnea. Denies chest pain , palpitations, headaches, dizziness. Denies fevers, chills, n/v/d. Denies dysuria. Objective Vitals Vital Signs Date Time Temp Pulse Resp B/P (MAP) Pulse Ox O2 Delivery O2 Flow Rate FiO2 09/07/17 07:35 97.7 60 20 107/59 (75) 96 09/07/17 06:15 21 09/07/17 04:00 97.6 60 17 108/58 (75) 95 09/07/17 00:16 98.7 61 16 127/60 (82) 96 09/07/17 00:03 97.8 61 16 127/60 (82) 96 09/06/17 23:10 61 18 101/57 (72) 96 Room Air 09/06/17 18:35 96.6 60 15 143/81 (101) 94 I/O 09/06/17 09/06/17 09/06/17 09/07/17 09/07/17 09/07/17 07:00 15:00 23:00 07:00 15:00 23:00 Intake Total 250 ml 200 ml Output Total 300 ml Balance -50 ml 200 ml Intake Oral 200 ml IV Total 250 ml Output Urine Total 300 ml # Voids 1 Result Diagram: 09/07/17 0520 09/07/17 0520 Imaging Last Impressions Chest CT 09/07/17 0000 Signed Impressions: Service Date/Time: Thursday, September 07, 2017 03:45 - CONCLUSION: Emphysema. Large right effusion and consolidation. Thoracic aortic aneurysm and ectasia of the visualized infrarenal abdominal aorta. Thien Tyson MD Chest X-Ray 09/06/[id number] Signed Impressions: Service Date/Time: September 21:10 - CONCLUSION: Moderate-sized right pleural effusion. Right mid and lower lung field patchiness consistent with possible pneumonia. Cardiomegaly. Delmar Connor MD Rad[facility] X-Ray 09/06/17 0000 Signed Impressions: Service Date/Time: September 21:18 - CONCLUSION: No acute disease. Degenerative changes involving the scaphotrapezium and scaphotrapezoid joints. Delmar Connor MD Objective Remarks GENERAL: This is a well-nourished, well-developed patient, in no apparent distress. SKIN: Warm and dry. BUE multiple ecchymosis and discoloration. Left elbow edema , no drainage HEENT: Normocephalic. Pupils equal round and reactive. Nose without bleeding. Airway patent. NECK: Trachea midline. No JVD. Supple. CARDIOVASCULAR: Regular rate and rhythm without murmurs, gallops, or rubs. RESPIRATORY: Diminished bases. No wheezes, rales, or rhonchi. GASTROINTESTINAL: Abdomen soft, non-tender, nondistended. Bowel Sounds normoactive x4. MUSCULOSKELETAL: Extremities without clubbing, cyanosis. LUE Trace edema. NEUROLOGICAL: Awake and alert. Oriented to place, person. No focal neuro deficit. Moves all extremities. Normal speech. A/P Problem List: (1) Pleural effusion ICD Code: J90 - Pleural effusion, not elsewhere classified (2) DVT (deep venous thrombosis) ICD Code: I82.409 - DVT (deep venous thrombosis) Status: Acute (3) BPH (benign prostatic hypertrophy) ICD Code: N40.0 - BPH (benign prostatic hypertrophy) Status: Acute (4) Pneumonia ICD Code: J18.9 - Pneumonia Status: Acute (5) Hypertension ICD Code: I10 - Hypertension Status: Acute (6) Dementia ICD Code: F03.90 - Dementia Status: Chronic (7) Cellulitis of left forearm ICD Code: L03.114 - Cellulitis of left upper limb Status: Acute (8) History of aortic valve replacement ICD Code: Z95.4 - History of aortic valve replacement Status: Acute Assessment and Plan 87-year-old male with a past medical history of atrial fibrillation on Xarelto, hyperlipidemia, Parkinson's disease, history of CVA and history of aVR presents to the emergency department for evaluation of a draining area on his left upper extremity. Pleural effusion, right Patient with new moderate sized right pleural effusion, as compared to previous chest x-ray on 03/08/17 - Etiology undetermined, patient may benefit from diagnostic thoracentesis - Holding Xarelto - CT chest showed emphysema. Large right effusion and consolidation. Thoracic aortic aneurysm and ectasia of the visualized infrarenal abdominal aorta - US guided thoracentesis ordered - Lasix IV - Spoke with Son from [facility] regarding plan for treatment and patient condition. Son states for most parts of the day patient Just laying in his recliner. Pneumonia, community acquired - Chest x-ray significant for right mid and lower lung field infiltrates, personally reviewed - Status post vancomycin/Zosyn in the emergency department - Started on Levaquin IV Cellulitis, Left Upper Extremity - elbow Antibiotics as above Atrial fibrillation - Continue anticoagulation with Xarelto - hold Xarelto for now - Continue home medications Hyperlipidemia Continue home medications Parkinson's disease - Continue Sinemet DVT prop SCDs Discharge Planning Not ready for discharge. Leo Booker Sep 07, 2017 09:35
[2017-09-07] MEDS ORDERED: LIDOCAINE HCL 1% 20 ML VIAL ONE (15:14)
--- NOTE | 2017-09-07 15:15 | RADRPT ---
EXAM DATE/TIME: 09/07/2017 15:10 [facility] COMPARISON: CHEST SINGLE AP, September 06, 2017, 21:10. INDICATIONS : Post right thoracentesis MEDICAL HISTORY : Hypertension. Congestive heart failure. CAD. CVA. SURGICAL HISTORY : Pacemaker. CABG ENCOUNTER: Initial ACUITY: 1 day PAIN SCORE: 5/10 LOCATION: Right chest FINDINGS: A single frontal expiratory view of the chest was performed. Small residual pleural effusion and rig ht basilar density. No pneumothorax. Status post CABG. Left-sided pacemaker.. The cardio-mediastinal contours and bronchopulmonary markings are unremarkable for an expiratory exam . Osseous structures are intact. CONCLUSION: Status post thoracentesis. No pneumothorax. Robert Nuñez MD on September 07, 2017 at 15:12 Board Certified Radiologist. This report was verified electronically.
--- NOTE | 2017-09-07 15:52 | RADRPT ---
EXAM DATE/TIME: 09/07/2017 14:31 [facility] COMPARISON: No previous studies available for comparison. INDICATIONS : Right pleural effusion. MEDICAL HISTORY : Congestive heart failure. Hypertension. Hypercholesterolemia. CVA. Coronary artery disease. Afib. HTN . Pneumonia. Heartburn. Measles. Pleural effusion. Anticoagulant therapy, Heparin. SURGICAL HISTORY : Pacemaker. CABG Cardiac cath. Valve replacement. Pilonidal cyst removal. Blood transfusions. ENCOUNTER: Initial ACUITY: 1 day PAIN SCORE: 2/10 LOCATION: Right chest FLUID: Total volume of 1350 cc of serosanguineous fluid was removed. Fluid was sent to lab for ordered studies. TECHNIQUE: 1. Ultrasound guidance for thoracentesis. 2. Thoracentesis. The risks, benefits, and alternatives to ultrasound guided thoracentesis were explained to the patien t in lay simple terms, including the risk of bleeding and infection. Written and verbal informed con sent was obtained. Appropriate area for thoracentesis was marked under ultrasound guidance with the patient in the uprig ht position. Overlying skin was prepped and draped in the usual sterile fashion and with local anest hetic, a dermatotomy was made with an 11 blade scalpel. A 6 Portuguese thoracentesis catheter was placed in the pleural space and fluid was removed. Catheter was then removed and a sterile dressing applie d. There were no immediate complications. The patient tolerated the procedure well and the left the ultrasound suite in stable condition. Chest radiograph is to be obtained. CONCLUSION: Uncomplicated ultrasound guided thoracentesis. Robert Nuñez MD on September 07, 2017 at 15:49 Board Certified Radiologist. This report was verified electronically.
[2017-09-07] MEDS: FUROSEMIDE 40 MG/4 ML VIAL IV PUSH SCH (17:42)
[2017-09-07 17:44] LABS: PLEURAL FLUID EOS 19 %; PLEURAL FLUID LYMPHS 70 %; PLEURAL FLUID MONOS 4 %; PLEURAL FLUID POLYS (SEGS) 7 %; PLEURAL FLUID RBC 300551 /MM3 (0-0); PLEURAL FLUID WBC 1720 /MM3 (0-10)
[2017-09-07] MEDS: TAMSULOSIN HCL 0.4 MG CAP PO SCH (22:28)
[2017-09-07] MEDS: DONEPEZIL HCL 5 MG TAB PO SCH (22:28)
[2017-09-07] MEDS: GABAPENTIN 400 MG CAP PO SCH (22:28)
[2017-09-07] MEDS: ATORVASTATIN 10 MG TAB PO SCH (22:28)
[2017-09-08] VITALS (11 sets, daily range): BP systolic 97–115; BP diastolic 55–60; PULSE 56–68; RESP 16–18; TEMP 97.8–98.5; O2SAT 95–98
[2017-09-08] MEDS: CARBIDOPA/LEVODOPA 25 MG/100 MG TAB PO SCH ×3 (05:36→21:57)
[2017-09-08] MEDS: DIGOXIN 0.125 MG TAB PO SCH (09:00)
[2017-09-08] MEDS: FINASTERIDE 5 MG TAB PO SCH (09:11)
[2017-09-08] MEDS: SERTRALINE HCL 50 MG TAB PO SCH (09:11)
[2017-09-08] MEDS: LEVOFLOXACIN 750 MG PREMIX INJ 150 ML IV SCH (09:11)
[2017-09-08] MEDS: FUROSEMIDE 40 MG/4 ML VIAL IV PUSH SCH ×2 (09:11→17:13)
[2017-09-08] MEDS: levETIRAcetam 500 MG TAB PO SCH ×2 (09:11→21:57)
[2017-09-08] MEDS: SODIUM CHLORIDE 0.9% FLUSH 10 ML FLUSH IV FLUSH SCH ×2 (09:12→21:00)
--- NOTE | 2017-09-08 18:09 | HHI.PR ---
Subjective Remarks Patient seen this morning. Says he is feeling all right. Denies any pain. He says he is not sure of the year. Discussed with nursing, patient has had some difficulty with swallowing clear liquids. We'll order speech evaluation. Objective Vital Signs Date Time Temp Pulse Resp B/P (MAP) Pulse Ox O2 Delivery O2 Flow Rate FiO2 09/08/17 16:03 98.5 61 18 106/57 (73) 95 09/08/17 16:00 59 09/08/17 12:10 97.8 68 18 97/57 (70) 98 09/08/17 12:00 60 09/08/17 10:13 95 09/08/17 08:04 98.0 60 17 111/55 (73) 95 09/08/17 08:00 60 09/08/17 04:00 97.9 67 18 115/59 (77) 96 09/08/17 04:00 59 09/08/17 00:00 59 09/08/17 00:00 98.3 63 18 103/56 (72) 95 09/07/17 20:00 97.6 63 18 104/63 (77) 95 I/O 09/07/17 09/07/17 09/07/17 09/08/17 09/08/17 09/08/17 07:00 15:00 23:00 07:00 15:00 23:00 Intake Total 200 ml 90 ml Output Total 1300 ml Balance 200 ml -1210 ml Intake Oral 200 ml 90 ml Output Urine Total 1300 ml # Voids 1 Result Diagram: 09/07/17 0520 09/07/17 0520 Objective Remarks GENERAL: pt sitting up in bed. Appears comfortable. Disoriented. Pleasant. SKIN: Warm and dry. HEAD: Normocephalic. EYES: No scleral icterus. No injection or drainage. NECK: Supple, trachea midline. No JVD. CARDIOVASCULAR: Regular rate and rhythm without murmurs, gallops, or rubs. RESPIRATORY: Breath sounds equal bilaterally. No accessory muscle use. GASTROINTESTINAL: Abdomen soft, non-tender, nondistended. MUSCULOSKELETAL: No cyanosis, or edema. BACK: Nontender without obvious deformity. No CVA tenderness. A/P Assessment and Plan 87-year-old male with a past medical history of atrial fibrillation on Xarelto, hyperlipidemia, Parkinson's disease, history of CVA and history of aVR presents to the emergency department for evaluation of a draining area on his left upper extremity. //Pleural effusion, right Patient with new moderate sized right pleural effusion, as compared to previous chest x-ray on 03/08/17 - Etiology undetermined, patient may benefit from diagnostic thoracentesis - Holding Xarelto - CT chest showed emphysema. Large right effusion and consolidation. Thoracic aortic aneurysm and ectasia of the visualized infrarenal abdominal aorta = Stop Lasix. Thoracentesis with large leukocyte, eosinophil count, exudative. Possibly secondary to malignancy versus atypical infection. Consult pulmonology. Cytology ordered and pending. As there is a large red blood cell count, possible hemothorax. We'll hold and coagulation for now //Pneumonia, community acquired - Chest x-ray significant for right mid and lower lung field infiltrates, personally reviewed - Status post vancomycin/Zosyn in the emergency department -Continuon Levaquin IV = AFB stain of pleural fluid. Continue Levaquin. White count within normal limits. //Cellulitis, Left Upper Extremity - elbow Improving. Antibiotics as above //Atrial fibrillation //History of stroke with aVR //Thrombophilia diagnosed in the past. - Continue anticoagulation with Xarelto - hold Xarelto for now - Continue home medications = Hold anticoagulation for now due to possible hemothorax. Consult hematology for her conditions. //Dysphagia. This appears to be an intermittent issue seen in the past as well. We'll order speech evaluation, placed on nectar thick liquids for now. Continue to monitor. //Hyperlipidemia Continue home medications //Parkinson's disease - Continue Sinemet = PT and OT following. Case management consult ordered. DVT prop SCDs Discharge Planning Case management consult ordered on 09/08. CT and OT following. Likely discharge back to rehabilitation when improved. Deny Brunner MD Sep 08, 2017 18:09
[2017-09-08 21:01] LABS: DIGOXIN 0.7 NG/ML (0.8-2.0)
[2017-09-08] MEDS: GABAPENTIN 400 MG CAP PO SCH (21:56)
[2017-09-08] MEDS: ATORVASTATIN 10 MG TAB PO SCH (21:56)
[2017-09-08] MEDS: TAMSULOSIN HCL 0.4 MG CAP PO SCH (21:57)
[2017-09-08] MEDS: DONEPEZIL HCL 5 MG TAB PO SCH (21:57)
[2017-09-09] VITALS (10 sets, daily range): BP systolic 103–136; BP diastolic 56–60; PULSE 59–71; RESP 16–20; TEMP 97.2–97.7; O2SAT 94–97
[2017-09-09] MEDS: CARBIDOPA/LEVODOPA 25 MG/100 MG TAB PO SCH ×3 (06:20→21:51)
[2017-09-09 07:14] LABS: AUTOMATED NEUTROPHIL # 4.8 TH/MM3 (1.8-7.7); BASOPHIL % 0.4 % (0.0-2.0); EOSINOPHIL # 0.2 TH/MM3 (0-0.4); EOSINOPHIL % 2.7 % (0.0-4.0); HEMATOCRIT 38.8 % (39.0-51.0); HEMOGLOBIN 13.4 GM/DL (13.0-17.0); LYMPH % 18.8 % (9.0-44.0); LYMPHOCYTE # 1.3 TH/MM3 (1.0-4.8); MEAN CELL VOLUME 89.8 FL (80.0-100.0); MEAN CORPUSCULAR HEMOGLOBIN 30.9 PG (27.0-34.0); MEAN CORPUSCULAR HGB CONC 34.4 % (32.0-36.0); MEAN PLATELET VOLUME 7.4 FL (7.0-11.0); MONO % 10.5 % (0.0-8.0); MONOCYTE # 0.7 TH/MM3 (0-0.9); NEUT % 67.6 % (16.0-70.0); PLATELET COUNT 283 TH/MM3 (150-450); RED BLOOD COUNT 4.32 MIL/MM3 (4.50-5.90); RED CELL DISTRIBUTION WIDTH 15.1 % (11.6-17.2); WHITE BLOOD COUNT 7.1 TH/MM3 (4.0-11.0)
[2017-09-09] MEDS: DIGOXIN 0.125 MG TAB PO SCH (08:07)
[2017-09-09] MEDS: SODIUM CHLORIDE 0.9% FLUSH 10 ML FLUSH IV FLUSH SCH ×2 (08:07→20:26)
[2017-09-09] MEDS: SERTRALINE HCL 50 MG TAB PO SCH (08:07)
[2017-09-09] MEDS: FUROSEMIDE 40 MG/4 ML VIAL IV PUSH SCH ×2 (08:07→17:46)
[2017-09-09] MEDS: FINASTERIDE 5 MG TAB PO SCH (08:07)
[2017-09-09] MEDS: LEVOFLOXACIN 750 MG PREMIX INJ 150 ML IV SCH (08:07)
[2017-09-09] MEDS: levETIRAcetam 500 MG TAB PO SCH ×2 (08:07→20:27)
[2017-09-09 08:31] LABS: ALBUMIN 2.5 GM/DL (3.4-5.0); BICARBONATE 29.9 MEQ/L (21.0-32.0); CALCIUM 8.3 MG/DL (8.5-10.1); CREATININE 1.01 MG/DL (0.60-1.30); MAGNESIUM 2.1 MG/DL (1.5-2.5)
--- NOTE | 2017-09-09 09:43 | HHI.PR ---
Subjective Remarks Patient seen this morning. Says he is feeling all right. Denies any pain. He says he is not sure of the year. Discussed with nursing, patient has had some difficulty with swallowing clear liquids. We'll order speech evaluation. Objective Vital Signs Date Time Temp Pulse Resp B/P (MAP) Pulse Ox O2 Delivery O2 Flow Rate FiO2 09/09/17 08:00 97.3 61 20 127/59 (81) 94 09/09/17 08:00 61 09/09/17 05:49 61 09/09/17 04:00 97.2 71 16 136/60 (85) 95 09/09/17 00:02 60 09/09/17 00:00 97.6 60 16 111/59 (76) 96 09/08/17 20:14 59 09/08/17 20:00 98.2 56 16 111/60 (77) 97 09/08/17 16:03 98.5 61 18 106/57 (73) 95 09/08/17 16:00 59 09/08/17 12:10 97.8 68 18 97/57 (70) 98 09/08/17 12:00 60 09/08/17 10:13 95 I/O 09/08/17 09/08/17 09/08/17 09/09/17 09/09/17 09/09/17 07:00 15:00 23:00 07:00 15:00 23:00 Intake Total 90 ml 120 ml 100 ml Output Total 1300 ml 1250 ml 600 ml Balance -1210 ml -1130 ml -500 ml Intake Oral 90 ml 120 ml 100 ml Output Urine Total 1300 ml 1250 ml 600 ml # Bowel Movements 0 0 Result Diagram: 09/09/17 0600 09/09/17 0600 Objective Remarks GENERAL: pt sitting up in bed. Appears comfortable. Disoriented. Pleasant as before. SKIN: Warm and dry. HEAD: Normocephalic. EYES: No scleral icterus. No injection or drainage. NECK: Supple, trachea midline. No JVD. CARDIOVASCULAR: Regular rate and rhythm without murmurs, gallops, or rubs. RESPIRATORY: He crease breath sounds on the right. Patient breathing comfortably however. No accessory muscle use. GASTROINTESTINAL: Abdomen soft, non-tender, nondistended. MUSCULOSKELETAL: No cyanosis, or edema. BACK: Nontender without obvious deformity. No CVA tenderness. A/P Assessment and Plan 87-year-old male with a past medical history of atrial fibrillation on Xarelto, hyperlipidemia, Parkinson's disease, history of CVA and history of aVR presents to the emergency department for evaluation of a draining area on his left upper extremity. //Pleural effusion, right Patient with new moderate sized right pleural effusion, as compared to previous chest x-ray on 03/08/17 - Etiology undetermined, patient may benefit from diagnostic thoracentesis - Holding Xarelto - CT chest showed emphysema. Large right effusion and consolidation. Thoracic aortic aneurysm and ectasia of the visualized infrarenal abdominal aorta = Stop Lasix. Thoracentesis with large leukocyte, eosinophil count, exudative. Possibly secondary to malignancy versus atypical infection. Consult pulmonology. Cytology ordered and pending. As there is a large red blood cell count, possible hemothorax. We'll hold and coagulation for now = Follow-up pulmonology ruminations. //Pneumonia, community acquired - Chest x-ray significant for right mid and lower lung field infiltrates, personally reviewed - Status post vancomycin/Zosyn in the emergency department -Continuon Levaquin IV = AFB stain of pleural fluid. Continue Levaquin. White count within normal limits. = Continue on antibiotics. AFB stain of pleural fluid pending. //Cellulitis, Left Upper Extremity - elbow -Improved. Antibiotics as above //Atrial fibrillation //History of stroke with aVR //Thrombophilia diagnosed in the past. - Continue anticoagulation with Xarelto - hold Xarelto for now - Continue home medications = Hold anticoagulation for now due to possible hemothorax. Follow-up hematology recommendations. //Dysphagia. This appears to be an intermittent issue seen in the past as well. We'll order speech evaluation, placed on nectar thick liquids for now. Continue to monitor. = 2/4. Await speech therapy recommendations. Discussed with nurse, and patient appears to be tolerating nectar thickened liquids much better, without any coughing. //Hyperlipidemia Continue home medications //Parkinson's disease - Continue Sinemet = PT and OT following. Case management consult ordered. DVT prop SCDs Discharge Planning =Appreciate case management assistance. =Follow-up pulmonology and hematology recommendations. =CT and OT following. Likely discharge to rehabilitation when improved. Deny Brunner MD Sep 09, 2017 09:43
--- NOTE | 2017-09-09 12:08 | RADRPT ---
EXAM DATE/TIME: 09/09/2017 10:23 [facility] COMPARISON: CHEST SINGLE AP, September 06, 2017, 21:10. INDICATIONS : Pleural effusion. MEDICAL HISTORY : Hypertension. Congestive heart failure. CAD. CVA. SURGICAL HISTORY : Pacemaker. CABG ENCOUNTER: Subsequent ACUITY: 1 day PAIN SCORE: Non-responsive. LOCATION: Bilateral chest FINDINGS: A single view of the chest demonstrates small right pleural effusion and right basilar atelectasis. L eft-sided pacemaker and previous CABG.. Osseous structures are intact. CONCLUSION: 1. Small right pleural effusion and right basilar atelectasis. Significant decrease in size of pleura l effusion. 2. Status post CABG. Robert Nuñez MD on September 09, 2017 at 12:05 Board Certified Radiologist. This report was verified electronically.
[2017-09-09] MEDS ORDERED: HEPARIN SODIUM - IV 10,000 UNITS/10 ML VIAL IV PUSH ONE (16:45)
[2017-09-09] MEDS ORDERED: POTASSIUM CHLORIDE 25 MEQ EFFERVESCENT TAB PO ONE (16:45)
--- NOTE | 2017-09-09 17:13 | MB ---
cc: VLADIMIR DURAND M.D. DATE OF CONSULTATION: 09/09/2017. REASON FOR CONSULTATION: Consult requested by the Hospitalist for evaluation of holding Anticoagulation. HISTORY OF PRESENT ILLNESS: Abdias is an 87-year-old male. He has a history of aortic stenosis with aortic valve replacement and chronic atrial fibrillation, CVA with left hemiparesis and history of left lower extremity DVT in 2014. The patient was on Xarelto. The Xarelto was held for the procedure, thoracentesis. The patient came into the hospital complaining of generalized weakness and swelling of the left upper extremity. The patient was admitted to the hospital for cellulitis and further workup. The x-ray of the left upper extremity does not show any fracture. He has degenerative changes. The chest x-ray showed a moderate-sized right pleural effusion and right mid and lower lung field patchiness consistent with possible pneumonia and cardiomegaly. The patient had a CT scan of the chest which shows emphysema and large right pleural effusion and consolidation. There is a thoracic aortic aneurysm and ectasia of the visualized infrarenal abdominal aorta noted. The patient underwent thoracentesis with interventional radiology on Sunday. A total of 1350 mL of serosanguineous fluid was removed. The Xarelto was held for the procedure. Now the hospitalist want to know whether they can continue to hold off on the anticoagulation as the pleural fluid shows loss of red cells. The patient is a poor historian. His son was present at the bedside. The patient has been losing weight. He has lost 50 pounds over the last six months or so. He also has depression. He does not move around that much according to his son. He has poor appetite. He is complaining of shortness of breath. Denies any cough. Denies any fever. Denies any nausea, vomiting or constipation. The rest of the review of systems is negative. PAST MEDICAL HISTORY: 1. Aortic stenosis status post AVR. 2. Coronary artery disease. 3. Atrial fibrillation. 4. CVA with left hemiparesis. 5. Left lower extremity DVT. 6. Arthritis. 7. Depression. 8. Dementia. 9. Hypertension. 10. Congestive heart failure. 11. Parkinson's disease. PAST SURGICAL HISTORY: 1. AVR. 2. CABG. 3. Pacemaker. 4. Pilonidal cyst removed. ALLERGIES: NONE REPORTED. MEDICATIONS PRIOR TO COMING TO THE HOSPITAL: 1. Carbidopa / levodopa. 2. Aricept. 3. Vitamin B12. 4. Folic acid. 5. Xarelto. 6. Sertraline. 7. Proscar. 8. Keppra. 9. Gabapentin. 10. Lasix. 11. Flomax. 12. Digoxin. 13. Atorvastatin. FAMILY HISTORY: No family history of thromboembolic disease. SOCIAL HISTORY: The patient quit smoking a long time ago and he does not drink alcohol. PHYSICAL EXAMINATION: GENERAL: This is a well-developed, malnourished white male in no apparent distress. VITAL SIGNS: Temperature 97.2, heart rate is 59, blood pressure 111/60, 02 saturation 96%. HEAD, EYES, EARS, NOSE, THROAT: Pupils equal, round and reactive to light and accommodation. Extraocular muscles intact. Anicteric. No oral lesions are noted. NECK: No lymphadenopathy noted. LUNGS: Decreased breath sounds over the right side. HEART: Regular rate and rhythm. ABDOMEN: Abdomen soft and nontender. No hepatosplenomegaly. EXTREMITIES: No pedal edema. NEUROLOGIC: Awake, alert and oriented times two. SKIN: No significant lesions noted. ASSESSMENT: 1. Right pleural effusion status post thoracentesis with numerous red cells. This could be either traumatic tap or could be hemorrhagic effusion. 2. History of chronic atrial fibrillation. 3. Aortic stenosis with AVR in 1994. 4. History of CVA with left hemiparesis. 5. History of left lower extremity DVT in 2014. 6. Arthritis. 7. Depression. 8. Dementia. 9. Hypertension. 10. Congestive heart failure. PLAN: I have reviewed his available records. I have discussed with the patient and his son regarding the question that I have been asked to see him for the holding of the anticoagulation. The patient was on Xarelto when he came in. He has significant right pleural effusion and the interventional radiologist did the thoracentesis two days ago. The fluid shows that the pH is normal. Total protein is normal. LDH is normal. Glucose is normal. The white count is 1720. The red cells are 300,000. It is unclear whether this is a traumatic tap (lots of red cells as the patient was on Xarelto) or whether this is a hemorrhagic effusion. I favor traumatic tap given the normal total protein, normal LDH, normal glucose and normal pH. The patient is at high risk for stroke from atrial fibrillation without the anticoagulation. Therefore my recommendation is to start him on unfractionated heparin drip and monitor for any bleeding. The benefit of anticoagulation with heparin outweighs the risk. Thank you for asking my opinion. Kellee Durand MD /SCARLETT /4:21 PM /4:54 PM [email or web address]
[2017-09-09] MEDS: POTASSIUM CHLOR 10 MEQ PREMIX 100 ML IV SCH ×3 (17:47→20:27)
[2017-09-09] MEDS: HEPARIN-D5W 25,000 U/250 ML 250 ML IV PRN (18:12)
[2017-09-09 18:16] LABS: HEMATOCRIT 38.3 % (39.0-51.0); HEMOGLOBIN 13.5 GM/DL (13.0-17.0); MEAN CELL VOLUME 89.3 FL (80.0-100.0); MEAN CORPUSCULAR HEMOGLOBIN 31.5 PG (27.0-34.0); MEAN CORPUSCULAR HGB CONC 35.3 % (32.0-36.0); MEAN PLATELET VOLUME 7.6 FL (7.0-11.0); PLATELET COUNT 267 TH/MM3 (150-450); RED BLOOD COUNT 4.29 MIL/MM3 (4.50-5.90); RED CELL DISTRIBUTION WIDTH 15.2 % (11.6-17.2); WHITE BLOOD COUNT 7.4 TH/MM3 (4.0-11.0)
[2017-09-09 18:34] LABS: INTERNATIONAL NORMALIZED RATIO 1.2 RATIO; PROTHROMBIN TIME - PATIENT 11.8 SEC (9.8-11.6)
--- NOTE | 2017-09-09 19:09 | MB ---
cc: Benson LITTLEJOHN M.D. DATE OF CONSULTATION: 09/09/2017. REASON FOR CONSULTATION: Right pleural effusion. HISTORY OF PRESENT ILLNESS: This is an 87-year-old white male with a history of aortic valve replacement for aortic valve stenosis. He has a history of chronic atrial fibrillation. 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 He has been on anticoagulation. The patient apparently came in for generalized weakness and swelling of the left arm and cellulitis was noted and further treatment has been started. A chest x-ray done upon admission shows a moderate sized right pleural effusion with some patchy infiltrates in the right lung consistent with possible pneumonia and/or atelectasis. The patient also has a history for previous thoracentesis and had over 1300 cc of fluid removed from the left side. The patient now recurrence of the right effusion. The patient does not volunteer any information and is a poor historian but has lost a lot of weight over the past few months and apparently mostly in bed and complains of shortness of breath but he is not on oxygen at the present time maintaining his sats over 92%. Denies chest pains. He has an occasional cough and mild wheezing. PAST MEDICAL HISTORY: The past history includes: 1. History of coronary artery disease. 2. History of atrial fibrillation. 3. History of aortic valve stenosis status post AVR. 4. He has had a left lower extremity DVT. 5. History of depression. 6. History for hypertension. 7. Congestive heart failure. 8. History of Parkinson's disease. 9. Degenerative arthritis. PAST SURGICAL HISTORY: Surgery includes: 1. CABG times two. 2. AVR. 3. Permanent pacemaker placement. 4. Surgery for a pilonidal cyst. ALLERGIES: NONE LISTED. MEDICATION LIST: 1. Gabapentin. 2. Keppra. 3. Lasix. 4. Flomax. 5. Digoxin. 6. Xarelto. 7. Sertraline. 8. Folic acid. 9. Aricept. FAMILY HISTORY: Family history is not significant for any lung disorder. HABITS: The patient smoked for about twenty years and quit smoking more than thirty years ago. No significant alcohol REVIEW OF SYSTEMS: The patient does not respond to all questions appropriately. He has some shortness of breath and a cough. No abdominal pains. No nausea or vomiting. No urinary symptoms. No leg or calf muscle pains but has some leg swelling and arm swelling. PHYSICAL EXAMINATION: GENERAL: This is an averagely built elderly man who appears chronically ill. VITAL SIGNS: Blood pressure 112/60, pulse is 60, respirations 16, temperature 97.5. HEAD, EYES, EARS, NOSE, THROAT: Head normocephalic. The pupils are reactive. Arcus senilis was seen. Tongue was dry. Throat was clear. NECK: The neck is supple. No lymphadenopathy. No bruits or thyroid enlargement. CHEST: Decreased breath sounds over the right lower chest. Occasional wheezes anteriorly. HEART: Heart sounds are regular. S1 and S2 with no murmur. ABDOMEN: Abdomen is soft and scaphoid. No masses. No organomegaly or tenderness. EXTREMITIES: Minimal edema with decreased pulses. NEUROLOGIC: Reflexes are 1+. The patient does move his extremities mostly the right side sluggishly. SKIN: Dry and cool. IMPRESSION: 1. Recurrent right pleural effusion with atelectasis right lower lobe. 2. Atrial fibrillation, chronic, with arteriosclerotic heart disease. 3. History of aortic valve replacement for aortic stenosis. 4. CVA with left hemiparesis. 5. History of DVT of the leg. 6. Dementia. 7. Depression. 8. Hypertension. PLAN: The patient will be sent for an ultrasound of the chest to evaluate the pleural effusion. Thoracentesis will be planned if there is significant fluid present. He just recently had a thoracentesis done and thus we will hold off on any thoracentesis unless it is absolutely indicated. He is on anticoagulation however due to history of atrial fibrillation. Cytology from the previous thoracentesis is pending. Also add DuoNeb solution with nebulizer three times a day. Incentive spirometry four times a day. Coagulation profile to be repeated this week. I will discuss the case with you and follow along. Thank you Dr. Brunner for this consultation. MD NEVILLE Dotson/SCARLETT /6:18 PM /6:53 PM
--- NOTE | 2017-09-09 19:28 | RADRPT ---
EXAM DATE/TIME: 09/09/2017 18:56 [facility] COMPARISON: No previous studies available for comparison. INDICATIONS : Pleural effusion. MEDICAL HISTORY : Congestive heart failure. Hypertension. Hypercholesterolemia. CVA. Coronary artery disease. Afib. HTN . Pneumonia. Heartburn. Measles. Pleural effusion. Anticoagulant therapy. SURGICAL HISTORY : Pacemaker. CABG Cardiac cath. Valve replacement. Pilonidal cyst removal. ENCOUNTER: Subsequent ACUITY: 1 day PAIN SCORE: 3/10 LOCATION: Right chest MEASUREMENTS: SKIN TO PARIETAL PLEURA: 1.4 cm SKIN TO MAX SAFE DEPTH: Inadequate fluid ESTIMATED FLUID VOLUME: 583 cc FLUID COMPOSITION: complex FINDINGS: No marking was performed. CONCLUSION: The pleural effusion is complex and septated and therefore marker was not placed. Josué Canada MD on September 09, 2017 at 19:25 Board Certified Radiologist. This report was verified electronically.
[2017-09-09] MEDS: RESP: ALBUTEROL 2.5 MG/IPRATROPIUM 0.5 MG NEB (SCH) NEB (19:53)
[2017-09-09] MEDS: DONEPEZIL HCL 5 MG TAB PO SCH (20:27)
[2017-09-09] MEDS: ATORVASTATIN 10 MG TAB PO SCH (20:27)
[2017-09-09] MEDS: TAMSULOSIN HCL 0.4 MG CAP PO SCH (20:27)
[2017-09-09] MEDS: GABAPENTIN 400 MG CAP PO SCH (20:27)
[2017-09-10] VITALS (11 sets, daily range): BP systolic 90–123; BP diastolic 51–56; PULSE 60–90; RESP 18–20; TEMP 97.2–98.3; O2SAT 92–96
[2017-09-10] MEDS: CARBIDOPA/LEVODOPA 25 MG/100 MG TAB PO SCH ×3 (05:20→20:28)
[2017-09-10] MEDS: RESP: ALBUTEROL 2.5 MG/IPRATROPIUM 0.5 MG NEB (SCH) NEB ×4 (07:41→19:50)
[2017-09-10 08:55] LABS: AUTOMATED NEUTROPHIL # 4.8 TH/MM3 (1.8-7.7); BASOPHIL % 0.4 % (0.0-2.0); EOSINOPHIL # 0.1 TH/MM3 (0-0.4); EOSINOPHIL % 1.5 % (0.0-4.0); HEMATOCRIT 39.5 % (39.0-51.0); HEMOGLOBIN 13.7 GM/DL (13.0-17.0); LYMPH % 33.7 % (9.0-44.0); LYMPHOCYTE # 2.9 TH/MM3 (1.0-4.8); MEAN CELL VOLUME 88.9 FL (80.0-100.0); MEAN CORPUSCULAR HEMOGLOBIN 30.8 PG (27.0-34.0); MEAN CORPUSCULAR HGB CONC 34.6 % (32.0-36.0); MEAN PLATELET VOLUME 7.3 FL (7.0-11.0); MONO % 9.8 % (0.0-8.0); MONOCYTE # 0.9 TH/MM3 (0-0.9); NEUT % 54.6 % (16.0-70.0); PLATELET COUNT 262 TH/MM3 (150-450); RED BLOOD COUNT 4.44 MIL/MM3 (4.50-5.90); WHITE BLOOD COUNT 8.7 TH/MM3 (4.0-11.0)
[2017-09-10] MEDS: SODIUM CHLORIDE 0.9% FLUSH 10 ML FLUSH IV FLUSH SCH ×2 (09:00→20:31)
[2017-09-10 09:02] LABS: ALBUMIN 2.4 GM/DL (3.4-5.0); BICARBONATE 29.2 MEQ/L (21.0-32.0); CALCIUM 8.5 MG/DL (8.5-10.1); CREATININE 1.03 MG/DL (0.60-1.30); PHOSPHORUS 3.3 MG/DL (2.5-4.9)
[2017-09-10] MEDS: DIGOXIN 0.125 MG TAB PO SCH (09:33)
[2017-09-10] MEDS: FINASTERIDE 5 MG TAB PO SCH (09:33)
[2017-09-10] MEDS: SERTRALINE HCL 50 MG TAB PO SCH (09:33)
[2017-09-10] MEDS: FUROSEMIDE 40 MG/4 ML VIAL IV PUSH SCH ×2 (09:34→18:00)
[2017-09-10] MEDS: LEVOFLOXACIN 750 MG PREMIX INJ 150 ML IV SCH (09:34)
[2017-09-10] MEDS: levETIRAcetam 500 MG TAB PO SCH ×2 (09:34→20:28)
--- NOTE | 2017-09-10 15:47 | HHI.PR ---
Subjective Remarks Patient denies cp, sob. afebrile Objective Vitals Vital Signs Date Time Temp Pulse Resp B/P (MAP) Pulse Ox O2 Delivery O2 Flow Rate FiO2 09/10/17 08:00 97.3 79 20 111/54 (73) 92 09/10/17 04:00 97.6 61 18 123/56 (78) 95 09/10/17 03:43 62 09/10/17 00:00 97.6 61 18 98/53 (68) 96 09/10/17 00:00 96 Room Air 09/09/17 23:57 59 09/09/17 20:00 97.7 62 17 128/60 (82) 96 09/09/17 20:00 96 Room Air 09/09/17 20:00 60 09/09/17 16:00 60 09/09/17 16:00 97.2 60 20 103/56 (72) 96 I/O 09/09/17 09/09/17 09/09/17 09/10/17 09/10/17 09/10/17 06:59 14:59 22:59 06:59 14:59 22:59 Intake Total 100 ml 200 ml 138 ml Output Total 600 ml 650 ml Balance -500 ml 200 ml -512 ml Intake Oral 100 ml IV Total 200 ml 138 ml Output Urine Total 600 ml 650 ml # Bowel Movements 0 0 Result Diagram: 09/10/17 0820 09/10/17 0820 Imaging Last Impressions Chest X-Ray 09/09/17 0000 Signed Impressions: Service Date/Time: Saturday, September 09, 2017 10:23 - CONCLUSION: 1. Small right pleural effusion and right basilar atelectasis. Significant decrease in size of pleural effusion. 2. Status post CABG. Robert Nuñez MD Chest Ultrasound 09/09/17 0000 Signed Impressions: Service Date/Time: Saturday, September 09, 2017 18:56 - CONCLUSION: The pleural effusion is complex and septated and therefore marker was not placed. Josué Canada MD Thoracentesis Ultrasound 09/07/17 0000 Signed Impressions: Service Date/Time: Thursday, September 07, 2017 14:31 - CONCLUSION: Uncomplicated ultrasound guided thoracentesis. Robert Nuñez MD Chest CT 09/07/17 0000 Signed Impressions: Service Date/Time: Thursday, September 07, 2017 03:45 - CONCLUSION: Emphysema. Large right effusion and consolidation. Thoracic aortic aneurysm and ectasia of the visualized infrarenal abdominal aorta. Thien Tyson MD Radius/Ulna X-Ray 09/06/17 0000 Signed Impressions: Service Date/Time: September 21:18 - CONCLUSION: No acute disease. Degenerative changes involving the scaphotrapezium and scaphotrapezoid joints. Delmar Connor MD Objective Remarks GENERAL: pt sitting up in bed. Appears comfortable. Disoriented. Pleasant as before. SKIN: Warm and dry. HEAD: Normocephalic. EYES: No scleral icterus. No injection or drainage. NECK: Supple, trachea midline. No JVD. CARDIOVASCULAR: Regular rate and rhythm without murmurs, gallops, or rubs. RESPIRATORY:Decreased breath sounds on the right. Patient breathing comfortably however. No accessory muscle use. GASTROINTESTINAL: Abdomen soft, non-tender, nondistended. MUSCULOSKELETAL: No cyanosis, or edema. BACK: Nontender without obvious deformity. No CVA tenderness. Medications and IVs Current Medications Medications (Trade) Dose Ordered Sig/Maria M Route Start Time Stop Time Status Last Admin (NS Flush) 2 ml UNSCH PRN IV FLUSH 09/06/17 23:45 (NS Flush) 2 ml BID IV FLUSH 09/07/17 09:00 09/10/17 09:00 (Tylenol) 650 mg Q4H PRN PO 09/06/17 23:45 (Zofran Inj) 4 mg Q6H PRN IVP 09/06/17 23:45 (Narcan Inj) 0.4 mg UNSCH PRN IV PUSH 09/06/17 23:45 (Milk Of Magnesia Liq) 30 ml Q12H PRN PO 09/06/17 23:45 (Senokot) 17.2 mg Q12H PRN PO 09/06/17 23:45 (Dulcolax Supp) 10 mg DAILY PRN RECTAL 09/06/17 23:45 (Lactulose Liq) 30 ml DAILY PRN PO 09/06/17 23:45 (Lipitor) 10 mg HS PO 09/07/17 21:00 09/09/17 20:27 (Sinemet 25-100 Mg) 1 tab Q8HR PO 09/07/17 06:00 09/10/17 13:13 (Lanoxin) 0.125 mg DAILY PO 09/07/17 09:00 09/10/17 09:33 (Aricept) 5 mg HS PO 09/07/17 21:00 09/09/17 20:27 (Proscar) 5 mg DAILY PO 09/07/17 09:00 09/10/17 09:33 (Lasix) 40 mg BID PO 09/07/17 09:00 Future Hold 09/07/17 09:01 (Neurontin) 400 mg HS PO 09/07/17 21:00 09/09/17 20:27 (Keppra) 500 mg BID PO 09/07/17 09:00 09/10/17 09:34 (Zoloft) 25 mg DAILY PO 09/07/17 09:00 09/10/17 09:33 (Flomax) 0.4 mg HS PO 09/07/17 21:00 09/09/17 20:27 Levofloxacin/ Dextrose 150 ml @ 100 mls/hr Q24H IV 09/07/17 09:00 09/10/17 09:34 (Lasix Inj) 40 mg BID@09,18 IV PUSH 09/07/17 18:00 09/10/17 09:34 Heparin Sodium/ Dextrose 250 ml @ 12 mls/hr TITRATE PRN IV 09/09/17 16:45 09/09/17 18:12 (Duoneb Neb) 1 ampule QID NEB NEB 09/09/17 20:00 09/10/17 16:29 A/P Problem List: (1) Pleural effusion ICD Code: J90 - Pleural effusion, not elsewhere classified (2) DVT (deep venous thrombosis) ICD Code: I82.409 - DVT (deep venous thrombosis) Status: Acute (3) BPH (benign prostatic hypertrophy) ICD Code: N40.0 - BPH (benign prostatic hypertrophy) Status: Acute (4) Pneumonia ICD Code: J18.9 - Pneumonia Status: Acute (5) Hypertension ICD Code: I10 - Hypertension Status: Acute (6) Dementia ICD Code: F03.90 - Dementia Status: Chronic (7) Cellulitis of left forearm ICD Code: L03.114 - Cellulitis of left upper limb Status: Acute (8) History of aortic valve replacement ICD Code: Z95.4 - History of aortic valve replacement Status: Acute Assessment and Plan 87-year-old male with a past medical history of atrial fibrillation on Xarelto, hyperlipidemia, Parkinson's disease, history of CVA and history of aVR presents to the emergency department for evaluation of a draining area on his left upper extremity. Pleural effusion, right Patient with new moderate sized right pleural effusion, as compared to previous chest x-ray on 03/08/17 - Etiology undetermined, patient may benefit from diagnostic thoracentesis - Holding Xarelto - CT chest showed emphysema. Large right effusion and consolidation. Thoracic aortic aneurysm and ectasia of the visualized infrarenal abdominal aorta Stop Lasix. Thoracentesis with large leukocyte, eosinophil count, exudative. Possibly secondary to malignancy versus atypical infection. Consult pulmonology. Cytology ordered and pending. As there is a large red blood cell count, possible hemothorax. 09/10 chest ultrasound showed a complex pleural effusion which is septated. I will follow-up with pulmonology recommendations. Continue with IV heparin drip for now. Pneumonia, community acquired - Chest x-ray significant for right mid and lower lung field infiltrates, personally reviewed - Status post vancomycin/Zosyn in the emergency department -Continue on Levaquin IV AFB stain of pleural fluid. Continue Levaquin. White count within normal limits. Continue on antibiotics. AFB stain of pleural fluid pending. Cellulitis, Left Upper Extremity - elbow -Improved. Antibiotics as above Atrial fibrillation History of stroke with aVR Thrombophilia diagnosed in the past. - Continue anticoagulation with Xarelto - hold Xarelto for now - Continue home medications Hold anticoagulation for now due to possible hemothorax. Follow-up hematology recommendations. Dysphagia. This appears to be an intermittent issue seen in the past as well. We'll order speech evaluation, placed on nectar thick liquids for now. Continue to monitor. 09/09. Await speech therapy recommendations. Discussed with nurse, and patient appears to be tolerating nectar thickened liquids much better, without any coughing. Hyperlipidemia Continue home medications Parkinson's disease - Continue Sinemet PT and OT following. Case management consult ordered. DVT prop SCDs Discharge Planning Pending pulmonology recommendations and clearance. Ab Morton MD Sep 10, 2017 15:47
[2017-09-10] MEDS: HEPARIN-D5W 25,000 U/250 ML 250 ML IV PRN (18:19)
--- NOTE | 2017-09-10 19:11 | HHI.PR ---
Subjective Remarks Seems lethargic and on O2 3 L. US of chest shows a Complex effusion. No chest pains. On Xarelto Objective Vital Signs Date Time Temp Pulse Resp B/P (MAP) Pulse Ox O2 Delivery O2 Flow Rate FiO2 09/10/17 16:00 98.3 60 20 90/51 (64) 95 09/10/17 12:01 78 09/10/17 12:00 97.7 77 20 122/56 (78) 92 09/10/17 08:00 97.3 79 20 111/54 (73) 92 09/10/17 08:00 Room Air 09/10/17 08:00 76 09/10/17 04:00 97.6 61 18 123/56 (78) 95 09/10/17 03:43 62 09/10/17 00:00 97.6 61 18 98/53 (68) 96 09/10/17 00:00 96 Room Air 09/09/17 23:57 59 09/09/17 20:00 97.7 62 17 128/60 (82) 96 09/09/17 20:00 96 Room Air 09/09/17 20:00 60 I/O 09/09/17 09/09/17 09/09/17 09/10/17 09/10/17 09/10/17 07:00 15:00 23:00 07:00 15:00 23:00 Intake Total 100 ml 200 ml 138 ml Output Total 600 ml 650 ml 475 ml Balance -500 ml 200 ml -512 ml -475 ml Intake Oral 100 ml IV Total 200 ml 138 ml Output Urine Total 600 ml 650 ml 475 ml # Bowel Movements 0 0 0 Result Diagram: 09/10/17 0820 09/10/17 0820 Objective Remarks GENERAL: This is an averagely built elderly man who appears chronically ill. HEAD, EYES, EARS, NOSE, THROAT: Head normocephalic. The pupils are reactive. Arcus senilis was seen. Tongue was dry. Throat was clear. NECK: The neck is supple. No lymphadenopathy. No bruits or thyroid enlargement. CHEST: Decreased breath sounds over the right lower chest. Occasional wheezes anteriorly. HEART: Heart sounds are regular. S1 and S2 with no murmur. ABDOMEN: Abdomen is soft and scaphoid. No masses. No organomegaly or tenderness. EXTREMITIES: Minimal edema with decreased pulses. NEUROLOGIC: Reflexes are 1+. The patient does move his extremities mostly the right side . SKIN: Dry and cool. Assessment and Plan Assessment and Plan IMPRESSION: 1. Recurrent right pleural effusion with atelectasis right lower lobe. 2. Atrial fibrillation, chronic, with arteriosclerotic heart disease. 3. History of aortic valve replacement for aortic stenosis. 4. CVA with left hemiparesis. 5. History of DVT of the leg. 6. Dementia. 7. Depression. 8. Hypertension. Plan : 1. O2 at 2L PRN. 2. No marking done on Pleural effusion , so will Rpt Ultrasound in 3 days 3. Nebs tid Duoneb 4. Continue antibiotics , Levaquin IV 5. IS at bedside qid. 6. CBC,BMP. Benson Mcgovern MD Sep 10, 2017 19:11
[2017-09-10] MEDS: DONEPEZIL HCL 5 MG TAB PO SCH (20:28)
[2017-09-10] MEDS: TAMSULOSIN HCL 0.4 MG CAP PO SCH (20:28)
[2017-09-10] MEDS: ATORVASTATIN 10 MG TAB PO SCH (20:28)
[2017-09-10] MEDS: GABAPENTIN 400 MG CAP PO SCH (20:28)
[2017-09-11] VITALS (10 sets, daily range): BP systolic 92–103; BP diastolic 50–60; PULSE 61–80; RESP 17–20; TEMP 97.3–97.9; O2SAT 93–97
[2017-09-11] MEDS: CARBIDOPA/LEVODOPA 25 MG/100 MG TAB PO SCH ×3 (05:19→22:00)
[2017-09-11] MEDS: RESP: ALBUTEROL 2.5 MG/IPRATROPIUM 0.5 MG NEB (SCH) NEB ×4 (07:22→19:23)
[2017-09-11] MEDS: levETIRAcetam 500 MG TAB PO SCH ×2 (08:41→20:23)
[2017-09-11] MEDS: DIGOXIN 0.125 MG TAB PO SCH (08:41)
[2017-09-11] MEDS: SERTRALINE HCL 50 MG TAB PO SCH (08:41)
[2017-09-11] MEDS: SODIUM CHLORIDE 0.9% FLUSH 10 ML FLUSH IV FLUSH SCH ×2 (08:41→20:24)
[2017-09-11] MEDS: FINASTERIDE 5 MG TAB PO SCH (08:41)
[2017-09-11] MEDS: LEVOFLOXACIN 750 MG PREMIX INJ 150 ML IV SCH (08:42)
[2017-09-11 09:00] LABS: AUTOMATED NEUTROPHIL # 4.5 TH/MM3 (1.8-7.7); BASOPHIL % 0.5 % (0.0-2.0); EOSINOPHIL # 0.1 TH/MM3 (0-0.4); EOSINOPHIL % 1.1 % (0.0-4.0); HEMATOCRIT 40.6 % (39.0-51.0); HEMOGLOBIN 13.8 GM/DL (13.0-17.0); LYMPH % 23.8 % (9.0-44.0); LYMPHOCYTE # 1.6 TH/MM3 (1.0-4.8); MEAN CELL VOLUME 89.8 FL (80.0-100.0); MEAN CORPUSCULAR HEMOGLOBIN 30.6 PG (27.0-34.0); MEAN CORPUSCULAR HGB CONC 34.1 % (32.0-36.0); MEAN PLATELET VOLUME 7.5 FL (7.0-11.0); MONO % 10.1 % (0.0-8.0); MONOCYTE # 0.7 TH/MM3 (0-0.9); NEUT % 64.5 % (16.0-70.0); PLATELET COUNT 250 TH/MM3 (150-450); RED BLOOD COUNT 4.53 MIL/MM3 (4.50-5.90); RED CELL DISTRIBUTION WIDTH 15.1 % (11.6-17.2); WHITE BLOOD COUNT 6.9 TH/MM3 (4.0-11.0)
[2017-09-11 09:17] LABS: ALBUMIN 2.4 GM/DL (3.4-5.0); AST (GOT) 12 U/L (15-37); BICARBONATE 30.5 MEQ/L (21.0-32.0); BLOOD UREA NITROGEN 24 MG/DL (7-18); CALCIUM 8.6 MG/DL (8.5-10.1); CHLORIDE 97 MEQ/L (98-107); CREATININE 1.18 MG/DL (0.60-1.30); GLOMERULAR FILTRATION RATE 58 ML/MIN (>89); GLUCOSE,RANDOM 106 MG/DL (74-106); SODIUM (NA) 136 MEQ/L (136-145)
[2017-09-11 09:22] LABS: ALKALINE PHOSPHATASE 163 U/L (45-117); ALT (GPT) LESS THAN 6 U/L (12-78); TOTAL BILIRUBIN ADULT 0.9 MG/DL (0.2-1.0); TOTAL PROTEIN 6.8 GM/DL (6.4-8.2)
[2017-09-11] MEDS ORDERED: POTASSIUM CHLORIDE 10 MEQ CONTROLLED RELEASE TAB PO ONE (10:15)
[2017-09-11] MEDS ORDERED: SODIUM CHLOR 0.9% 250 ML INJ 250 ML IV ONE ×2 (10:15→18:00)
--- NOTE | 2017-09-11 11:59 | PD.ONC.PN ---
Subjective Subjective Remarks Afebrile overnight. Patient resting in bed in nad. No bleeding events. Objective Data Date Time Temp Pulse Resp B/P (MAP) Pulse Ox O2 Delivery O2 Flow Rate FiO2 09/11/17 08:00 69 09/11/17 08:00 97.7 80 20 92/50 (64) 93 09/11/17 08:00 Room Air 09/11/17 07:22 97 21 09/11/17 06:00 97.4 66 18 95/55 (68) 94 09/11/17 04:00 Room Air 09/11/17 04:00 61 09/11/17 00:00 78 09/11/17 00:00 Room Air 09/10/17 23:55 97.7 70 20 99/54 (69) 93 09/10/17 22:00 76 09/10/17 21:11 97.2 90 20 90/54 (66) 93 09/10/17 20:00 Room Air 09/10/17 19:52 93 09/10/17 16:00 98.3 60 20 90/51 (64) 95 09/10/17 12:01 78 09/10/17 12:00 97.7 77 20 122/56 (78) 92 09/11/17 09/11/17 09/11/17 07:00 15:00 23:00 Intake Total 0 ml Output Total 100 ml Balance -100 ml Result Diagram: 09/11/17 0820 09/11/17 0820 Laboratory Results Laboratory Tests Test 09/10/17 14:02 09/11/17 08:20 Activated Partial Thromboplast Time 56.3 SEC 80.1 SEC White Blood Count 6.9 TH/MM3 Red Blood Count 4.53 MIL/MM3 Hemoglobin 13.8 GM/DL Hematocrit 40.6 % Mean Corpuscular Volume 89.8 FL Mean Corpuscular Hemoglobin 30.6 PG Mean Corpuscular Hemoglobin Concent 34.1 % Red Cell Distribution Width 15.1 % Platelet Count 250 TH/MM3 Mean Platelet Volume 7.5 FL Neutrophils (%) (Auto) 64.5 % Lymphocytes (%) (Auto) 23.8 % Monocytes (%) (Auto) 10.1 % Eosinophils (%) (Auto) 1.1 % Basophils (%) (Auto) 0.5 % Neutrophils # (Auto) 4.5 TH/MM3 Lymphocytes # (Auto) 1.6 TH/MM3 Monocytes # (Auto) 0.7 TH/MM3 Eosinophils # (Auto) 0.1 TH/MM3 Basophils # (Auto) 0.0 TH/MM3 CBC Comment DIFF FINAL Differential Comment Blood Urea Nitrogen 24 MG/DL Creatinine 1.18 MG/DL Random Glucose 106 MG/DL Total Protein 6.8 GM/DL Albumin 2.4 GM/DL Calcium Level 8.6 MG/DL Alkaline Phosphatase 163 U/L Aspartate Amino Transf (AST/SGOT) 12 U/L Alanine Aminotransferase (ALT/SGPT) LESS THAN 6 U/L Total Bilirubin 0.9 MG/DL Sodium Level 136 MEQ/L Potassium Level 3.1 MEQ/L Chloride Level 97 MEQ/L Carbon Dioxide Level 30.5 MEQ/L Anion Gap 9 MEQ/L Estimat Glomerular Filtration Rate 58 ML/MIN Administered Medications Medications (Trade) Dose Ordered Sig/Maria M Route PRN Reason Start Time Stop Time Status Last Admin Dose Admin Sodium Chloride (NS Flush) 2 ml BID IV FLUSH 09/07/17 09:00 09/11/17 08:41 Atorvastatin Calcium (Lipitor) 10 mg HS PO 09/07/17 21:00 09/10/17 20:28 Carbidopa/Levodopa (Sinemet 25-100 Mg) 1 tab Q8HR PO 09/07/17 06:00 09/11/17 05:19 Digoxin (Lanoxin) 0.125 mg DAILY PO 09/07/17 09:00 09/11/17 08:41 Donepezil HCl (Aricept) 5 mg HS PO 09/07/17 21:00 09/10/17 20:28 Finasteride (Proscar) 5 mg DAILY PO 09/07/17 09:00 09/11/17 08:41 Furosemide (Lasix) 40 mg BID PO 09/07/17 09:00 Future Hold 09/07/17 09:01 Gabapentin (Neurontin) 400 mg HS PO 09/07/17 21:00 09/10/17 20:28 Levetriacetam (Keppra) 500 mg BID PO 09/07/17 09:00 09/11/17 08:41 Sertraline HCl (Zoloft) 25 mg DAILY PO 09/07/17 09:00 09/11/17 08:41 Tamsulosin HCl (Flomax) 0.4 mg HS PO 09/07/17 21:00 09/10/17 20:28 Levofloxacin/ Dextrose 150 ml @ 100 mls/hr Q24H IV 09/07/17 09:00 09/11/17 08:42 Heparin Sodium/ Dextrose 250 ml @ 12 mls/hr TITRATE PRN IV Coagulation Management 09/09/17 16:45 09/10/17 18:19 Albuterol/ Ipratropium (Duoneb Neb) 1 ampule QID NEB NEB 09/09/17 20:00 09/11/17 11:03 Objective Remarks GENERAL: pleasant, elderly, debilitated male, lying in bed resting. SKIN: Warm and dry. thin, dry skin HEAD: Normocephalic. EYES: No injection or drainage. NECK: Supple, trachea midline. CARDIOVASCULAR: IRR RESPIRATORY: anterior ortiz clear. GASTROINTESTINAL: Abdomen soft, non-tender, nondistended. EXTREMITIES: No cyanosis. NEUROLOGICAL: awake, oriented to self and place but not time. Assessment/Plan Problem List: (1) Pleural effusion ICD Codes: J90 - Pleural effusion, not elsewhere classified Plan: -- Right pleural effusion status post thoracentesis with numerous red cells. -- traumatic tap vs hemorrhagic effusion. (2) Atrial fibrillation ICD Codes: I48.91 - Atrial fibrillation Status: Chronic Plan: 09/11: continue heparin gtt. monitor closely for bleeding. --on heparin gtt --on xarelto outpatient, xarelto held for thoracentesis. Assessment 87y/o male admitted with generalized weakness. Hematology consulted for anticoagulation recommendations history of aortic stenosis with aortic valve replacement and chronic atrial fibrillation, CVA with left hemiparesis and history of left lower extremity DVT in 2014. --on xarelto outpatient. xarelto held for thoracentesis. The patient underwent thoracentesis with interventional radiology on Sunday. A total of 1350 mL of serosanguineous fluid was removed. Attending Statement The exam, history, and the medical decision-making described in the above note were completed with the assistance of the mid-level provider. I reviewed and agree with the findings presented. I attest that I had a [id number] encounter with the patient on the same day, and personally performed and documented my assessment and findings in the medical record. Pt seen and examined in evening after breathing treatment. Looks frail and weak. Offers no complaints. Lungs sound clear. Events over the weekend and today noted. Plan to replaced back on Xarelto, pending further workup as out pt. Recommend reduced dose in light of age>80, mild renal insufficiency. No bleeding noted, CBC normal. Will sign off. Saida Oviedo Sep 11, 2017 11:59 Cynthia Olivares MD Sep 11, 2017 19:45
--- NOTE | 2017-09-11 18:03 | HHI.PR ---
Subjective Remarks BP noted to be low. Patient denies cp/sob. Patient at bedside makes a notation that rivera bag does not have much urine. Objective Vitals Vital Signs Date Time Temp Pulse Resp B/P (MAP) Pulse Ox O2 Delivery O2 Flow Rate FiO2 09/11/17 16:08 94 21 09/11/17 08:00 69 09/11/17 08:00 97.7 80 20 92/50 (64) 93 09/11/17 08:00 Room Air 09/11/17 07:22 97 21 09/11/17 06:00 97.4 66 18 95/55 (68) 94 09/11/17 04:00 Room Air 09/11/17 04:00 61 09/11/17 00:00 78 09/11/17 00:00 Room Air 09/10/17 23:55 97.7 70 20 99/54 (69) 93 09/10/17 22:00 76 09/10/17 21:11 97.2 90 20 90/54 (66) 93 09/10/17 20:00 Room Air 09/10/17 19:52 93 I/O 09/10/17 09/10/17 09/10/17 09/11/17 09/11/17 09/11/17 07:00 15:00 23:00 07:00 15:00 23:00 Intake Total 138 ml 0 ml Output Total 650 ml 475 ml 100 ml Balance -512 ml -475 ml -100 ml Intake Oral 0 ml IV Total 138 ml Output Urine Total 650 ml 475 ml 100 ml # Bowel Movements 0 0 0 Result Diagram: 09/11/17 0820 09/11/17 0820 Imaging Last Impressions Chest X-Ray 09/09/17 0000 Signed Impressions: Service Date/Time: Saturday, September 09, 2017 10:23 - CONCLUSION: 1. Small right pleural effusion and right basilar atelectasis. Significant decrease in size of pleural effusion. 2. Status post CABG. Robert Nuñez MD Chest Ultrasound 09/09/17 0000 Signed Impressions: Service Date/Time: Saturday, September 09, 2017 18:56 - CONCLUSION: The pleural effusion is complex and septated and therefore marker was not placed. Josué Canada MD Thoracentesis Ultrasound 09/07/17 0000 Signed Impressions: Service Date/Time: Thursday, September 07, 2017 14:31 - CONCLUSION: Uncomplicated ultrasound guided thoracentesis. Robert Nuñez MD Chest CT 09/07/17 0000 Signed Impressions: Service Date/Time: Thursday, September 07, 2017 03:45 - CONCLUSION: Emphysema. Large right effusion and consolidation. Thoracic aortic aneurysm and ectasia of the visualized infrarenal abdominal aorta. Thien Tyson MD Radius/Ulna X-Ray 09/06/17 0000 Signed Impressions: Service Date/Time: September 21:18 - CONCLUSION: No acute disease. Degenerative changes involving the scaphotrapezium and scaphotrapezoid joints. Delmar Connor MD Objective Remarks GENERAL: pt sitting up in bed. Appears comfortable. Disoriented. Pleasant as before. SKIN: Warm and dry. HEAD: Normocephalic. dry mucus membranes. EYES: No scleral icterus. No injection or drainage. NECK: Supple, trachea midline. No JVD. CARDIOVASCULAR: Regular rate and rhythm without murmurs, gallops, or rubs. RESPIRATORY:Decreased breath sounds on the right. Patient breathing comfortably however. No accessory muscle use. GASTROINTESTINAL: Abdomen soft, non-tender, nondistended. MUSCULOSKELETAL: No cyanosis, or edema. BACK: Nontender without obvious deformity. No CVA tenderness. Procedures none Medications and IVs Current Medications Medications (Trade) Dose Ordered Sig/Maria M Route Start Time Stop Time Status Last Admin (NS Flush) 2 ml UNSCH PRN IV FLUSH 09/06/17 23:45 (NS Flush) 2 ml BID IV FLUSH 09/07/17 09:00 09/11/17 08:41 (Tylenol) 650 mg Q4H PRN PO 09/06/17 23:45 (Zofran Inj) 4 mg Q6H PRN IVP 09/06/17 23:45 (Narcan Inj) 0.4 mg UNSCH PRN IV PUSH 09/06/17 23:45 (Milk Of Magnesia Liq) 30 ml Q12H PRN PO 09/06/17 23:45 (Senokot) 17.2 mg Q12H PRN PO 09/06/17 23:45 (Dulcolax Supp) 10 mg DAILY PRN RECTAL 09/06/17 23:45 (Lactulose Liq) 30 ml DAILY PRN PO 09/06/17 23:45 (Lipitor) 10 mg HS PO 09/07/17 21:00 09/10/17 20:28 (Sinemet 25-100 Mg) 1 tab Q8HR PO 09/07/17 06:00 09/11/17 15:04 (Lanoxin) 0.125 mg DAILY PO 09/07/17 09:00 09/11/17 08:41 (Aricept) 5 mg HS PO 09/07/17 21:00 09/10/17 20:28 (Proscar) 5 mg DAILY PO 09/07/17 09:00 09/11/17 08:41 (Lasix) 40 mg BID PO 09/07/17 09:00 Future Hold 09/07/17 09:01 (Neurontin) 400 mg HS PO 09/07/17 21:00 09/10/17 20:28 (Keppra) 500 mg BID PO 09/07/17 09:00 09/11/17 08:41 (Zoloft) 25 mg DAILY PO 09/07/17 09:00 09/11/17 08:41 (Flomax) 0.4 mg HS PO 09/07/17 21:00 09/10/17 20:28 Levofloxacin/ Dextrose 150 ml @ 100 mls/hr Q24H IV 09/07/17 09:00 09/11/17 08:42 Heparin Sodium/ Dextrose 250 ml @ 12 mls/hr TITRATE PRN IV 09/09/17 16:45 09/10/17 18:19 (Duoneb Neb) 1 ampule QID NEB NEB 09/09/17 20:00 09/11/17 16:08 A/P Problem List: (1) Pleural effusion ICD Code: J90 - Pleural effusion, not elsewhere classified (2) DVT (deep venous thrombosis) ICD Code: I82.409 - DVT (deep venous thrombosis) Status: Acute (3) BPH (benign prostatic hypertrophy) ICD Code: N40.0 - BPH (benign prostatic hypertrophy) Status: Acute (4) Pneumonia ICD Code: J18.9 - Pneumonia Status: Acute (5) Hypertension ICD Code: I10 - Hypertension Status: Acute (6) Dementia ICD Code: F03.90 - Dementia Status: Chronic (7) Cellulitis of left forearm ICD Code: L03.114 - Cellulitis of left upper limb Status: Acute (8) History of aortic valve replacement ICD Code: Z95.4 - History of aortic valve replacement Status: Acute Assessment and Plan 87-year-old male with a past medical history of atrial fibrillation on Xarelto, hyperlipidemia, Parkinson's disease, history of CVA and history of aVR presents to the emergency department for evaluation of a draining area on his left upper extremity. Pleural effusion, right Patient with new moderate sized right pleural effusion, as compared to previous chest x-ray on 03/08/17 - Etiology undetermined, patient may benefit from diagnostic thoracentesis - Holding Xarelto - CT chest showed emphysema. Large right effusion and consolidation. Thoracic aortic aneurysm and ectasia of the visualized infrarenal abdominal aorta Stop Lasix. Thoracentesis with large leukocyte, eosinophil count, exudative. Possibly secondary to malignancy versus atypical infection. Consult pulmonology. Cytology ordered and pending. As there is a large red blood cell count, possible hemothorax. 09/10 chest ultrasound showed a complex pleural effusion which is septated. I will follow-up with pulmonology recommendations. Continue with IV heparin drip for now. 09/11 discussed the case with Dr. Tucker from pulmonary. Options to treat the pleural effusion would include pleurodesis, however the patient is not a good candidate for the surgery now. Pulmonology recommended that the patient will be discharged from the standpoint. discussed this with the patient's son who agrees. Pneumonia, community acquired - Chest x-ray significant for right mid and lower lung field infiltrates, personally reviewed - Status post vancomycin/Zosyn in the emergency department -Continue on Levaquin IV AFB stain of pleural fluid. Continue Levaquin. White count within normal limits. 09/11 no AFB seen, mycobacterial culture pending. Continue Levaquin which I will transition to oral. Cellulitis, Left Upper Extremity - elbow -Improved. Antibiotics as above Atrial fibrillation History of stroke with aVR Thrombophilia diagnosed in the past. - Continue anticoagulation with Xarelto - Continue home medications 09/11 Will resume Xarelto in am as patient had thoracentesis and there are no plans for another one - if respiratory status stable. Dysphagia. This appears to be an intermittent issue seen in the past as well. We'll order speech evaluation, placed on nectar thick liquids for now. Continue to monitor. 2/4. Await speech therapy recommendations. Discussed with nurse, and patient appears to be tolerating nectar thickened liquids much better, without any coughing. Hyperlipidemia Continue home medications Parkinson's disease - Continue Sinemet PT and OT following. Case management consult ordered. Hypotension Patient's blood pressure low with a systolic blood pressure in the 90s. Ordered him a bolus of 250 cc of normal saline which was administered that much improvement. I will give a second bolus of 150 cc of normal saline. I will possibly place on IV fluids for maintenance. Likely hypotension secondary to overdiuresis. DVT prop SCDs Discharge Planning DC in am pending improvement of BP. Ab Morton MD Sep 11, 2017 18:03
[2017-09-11] MEDS: HEPARIN-D5W 25,000 U/250 ML 250 ML IV PRN (18:13)
[2017-09-11 18:44] LABS: MITOGEN MINUS NIL RESULT 8.99 IU/mL; NIL RESULT 0.02 IU/mL; QUANTIFERON TB GOLD RESULT Negative (Negative)
--- NOTE | 2017-09-11 20:04 | HHI.PR ---
Subjective Remarks More awake and on Room air sat 93 US of chest shows a Complex effusion. No chest pains. On Xarelto. Objective Vital Signs Date Time Temp Pulse Resp B/P (MAP) Pulse Ox O2 Delivery O2 Flow Rate FiO2 09/11/17 16:08 94 21 09/11/17 16:00 97.9 68 20 99/54 (69) 95 09/11/17 16:00 67 09/11/17 15:25 70 17 103/57 (72) 95 09/11/17 12:00 97.3 73 20 100/52 (68) 94 09/11/17 08:00 69 09/11/17 08:00 97.7 80 20 92/50 (64) 93 09/11/17 08:00 Room Air 09/11/17 07:22 97 21 09/11/17 06:00 97.4 66 18 95/55 (68) 94 09/11/17 04:00 Room Air 09/11/17 04:00 61 09/11/17 00:00 78 09/11/17 00:00 Room Air 09/10/17 23:55 97.7 70 20 99/54 (69) 93 09/10/17 22:00 76 09/10/17 21:11 97.2 90 20 90/54 (66) 93 I/O 09/10/17 09/10/17 09/10/17 09/11/17 09/11/17 09/11/17 07:00 15:00 23:00 07:00 15:00 23:00 Intake Total 138 ml 0 ml 220 ml Output Total 650 ml 475 ml 100 ml 425 ml Balance -512 ml -475 ml -100 ml -205 ml Intake Oral 0 ml 220 ml IV Total 138 ml Output Urine Total 650 ml 475 ml 100 ml 425 ml # Bowel Movements 0 0 0 0 Result Diagram: 09/11/17 0820 09/11/17 0820 Objective Remarks GENERAL: This is an averagely built elderly man who appears chronically ill. HEAD, EYES, EARS, NOSE, THROAT: Head normocephalic. The pupils are reactive. Arcus senilis was seen. Tongue was dry. Throat was clear. NECK: The neck is supple. No lymphadenopathy. No bruits or thyroid enlargement. CHEST: Decreased breath sounds over the right lower chest. Occasional wheezes anteriorly.Occ Basal crackles. HEART: Heart sounds are regular. S1 and S2 with no murmur. ABDOMEN: Abdomen is soft and scaphoid. No masses. No organomegaly or tenderness. EXTREMITIES: Minimal edema with decreased pulses. NEUROLOGIC: Reflexes are 1+. The patient does move his extremities mostly the right side . SKIN: Dry and cool. Assessment and Plan Assessment and Plan IMPRESSION: 1. Recurrent right pleural effusion with atelectasis right lower lobe. 2. Atrial fibrillation, chronic, with arteriosclerotic heart disease. 3. History of aortic valve replacement for aortic stenosis. 4. CVA with left hemiparesis. 5. History of DVT of the leg. 6. Dementia. 7. Depression. 8. Hypertension. Plan : 1. O2 at 2L PRN. 2. No marking done on Pleural effusion , so will Rpt Ultrasound in am. 3. Nebs tid Duoneb 4. Continue antibiotics , Levaquin IV 5. IS at bedside qid. 6. PT INR CBC Benson Mcgovern MD Sep 11, 2017 20:04
[2017-09-11] MEDS: ATORVASTATIN 10 MG TAB PO SCH (20:23)
[2017-09-11] MEDS: GABAPENTIN 400 MG CAP PO SCH (20:23)
[2017-09-11] MEDS: DONEPEZIL HCL 5 MG TAB PO SCH (20:23)
[2017-09-11] MEDS: TAMSULOSIN HCL 0.4 MG CAP PO SCH (20:23)
--- NOTE | 2017-09-11 22:00 | RADRPT ---
EXAM DATE/TIME: 09/11/2017 21:13 [facility] COMPARISON: US CHEST RIGHT, September 09, 2017, 18:56. INDICATIONS : Pleural effusion. MEDICAL HISTORY : Congestive heart failure. Hypertension. Hypercholesterolemia. CVA. Coronary artery disease. Afib. HTN . Pneumonia. Heartburn. Measles. Pleural effusion. Anticoagulant therapy. SURGICAL HISTORY : Pacemaker. CABG Cardiac cath. Valve replacement. Pilonidal cyst removal. ENCOUNTER: Sequela ACUITY: 2 days PAIN SCORE: 0/10 LOCATION: Right chest MEASUREMENTS: SKIN TO PARIETAL PLEURA: 1.3 cm SKIN TO MAX SAFE DEPTH: Inadequate fluid ESTIMATED FLUID VOLUME: 425 cc FLUID COMPOSITION: complex FINDINGS: No marking was performed. The right-sided effusion is complex and septated. There does not appear to be enough fluid for thorac entesis. There has been no significant change with its appearance compared to the prior exam. CONCLUSION: Complex septated fluid in the right pleural space. No significant change compared to the prior study. William Jaimes MD on September 11, 2017 at 21:56 Board Certified Radiologist. This report was verified electronically.
[2017-09-12] VITALS (11 sets, daily range): BP systolic 86–106; BP diastolic 49–61; PULSE 59–79; RESP 16–18; TEMP 97.3–98.1; O2SAT 93–97
[2017-09-12] MEDS: CARBIDOPA/LEVODOPA 25 MG/100 MG TAB PO SCH ×3 (05:15→20:40)
[2017-09-12 06:55] LABS: HEMATOCRIT 39.3 % (39.0-51.0); HEMOGLOBIN 13.3 GM/DL (13.0-17.0); MEAN CELL VOLUME 90.7 FL (80.0-100.0); MEAN CORPUSCULAR HEMOGLOBIN 30.6 PG (27.0-34.0); MEAN CORPUSCULAR HGB CONC 33.7 % (32.0-36.0); MEAN PLATELET VOLUME 7.8 FL (7.0-11.0); PLATELET COUNT 230 TH/MM3 (150-450); RED BLOOD COUNT 4.34 MIL/MM3 (4.50-5.90); RED CELL DISTRIBUTION WIDTH 15.2 % (11.6-17.2); WHITE BLOOD COUNT 8.8 TH/MM3 (4.0-11.0)
[2017-09-12 07:22] LABS: BICARBONATE 31.3 MEQ/L (21.0-32.0); CALCIUM 8.5 MG/DL (8.5-10.1); CREATININE 1.01 MG/DL (0.60-1.30)
[2017-09-12] MEDS: RESP: ALBUTEROL 2.5 MG/IPRATROPIUM 0.5 MG NEB (SCH) NEB ×4 (08:55→19:22)
[2017-09-12] MEDS: SODIUM CHLORIDE 0.9% FLUSH 10 ML FLUSH IV FLUSH SCH ×2 (09:00→21:00)
[2017-09-12] MEDS: levETIRAcetam 500 MG TAB PO SCH ×2 (09:20→20:40)
[2017-09-12] MEDS: FINASTERIDE 5 MG TAB PO SCH (09:20)
[2017-09-12] MEDS: DIGOXIN 0.125 MG TAB PO SCH (09:20)
[2017-09-12] MEDS: LEVOFLOXACIN 750 MG TAB PO SCH (09:21)
[2017-09-12] MEDS: SERTRALINE HCL 50 MG TAB PO SCH (09:21)
[2017-09-12] MEDS ORDERED: SODIUM CHLORID 0.9% 500 ML INJ 500 ML IV ONE (11:25)
--- NOTE | 2017-09-12 19:29 | HHI.PR ---
Subjective Remarks deferred entry - patient seen earlier at 11 am. Patient denies cp/sob. bp low. low urine output Objective Vitals Vital Signs Date Time Temp Pulse Resp B/P (MAP) Pulse Ox O2 Delivery O2 Flow Rate FiO2 09/12/17 16:00 59 09/12/17 16:00 98.1 64 17 100/59 (73) 94 09/12/17 15:33 95 21 09/12/17 12:00 97.3 69 18 96/55 (69) 95 09/12/17 12:00 64 09/12/17 08:58 93 09/12/17 08:00 98.0 62 18 86/49 (61) 96 09/12/17 08:00 64 09/12/17 07:00 Room Air 09/12/17 04:00 60 09/12/17 04:00 Room Air 09/12/17 04:00 98.1 79 16 90/61 (71) 93 09/12/17 00:00 97.3 72 18 95/52 (66) 95 09/12/17 00:00 Room Air 09/12/17 00:00 59 09/11/17 20:00 97.9 68 18 99/60 (73) 95 09/11/17 20:00 Room Air I/O 09/11/17 09/11/17 09/11/17 09/12/17 09/12/17 09/12/17 07:00 15:00 23:00 07:00 15:00 23:00 Intake Total 0 ml 220 ml 120 ml 120 ml Output Total 100 ml 425 ml 300 ml 150 ml Balance -100 ml -205 ml -180 ml -30 ml Intake Oral 0 ml 220 ml 120 ml 120 ml Output Urine Total 100 ml 425 ml 300 ml 150 ml # Bowel Movements 0 0 0 Result Diagram: 09/12/17 0625 09/12/17 0625 Imaging Last Impressions Chest Ultrasound 09/11/17 0000 Signed Impressions: Service Date/Time: Monday, September 11, 2017 21:13 - CONCLUSION: Complex septated fluid in the right pleural space. No significant change compared to the prior study. William Jaimes MD Chest X-Ray 09/09/17 0000 Signed Impressions: Service Date/Time: Saturday, September 09, 2017 10:23 - CONCLUSION: 1. Small right pleural effusion and right basilar atelectasis. Significant decrease in size of pleural effusion. 2. Status post CABG. Robert Nuñez MD Thoracentesis Ultrasound 09/07/17 0000 Signed Impressions: Service Date/Time: Thursday, September 07, 2017 14:31 - CONCLUSION: Uncomplicated ultrasound guided thoracentesis. Robert Nuñez MD Chest CT 09/07/17 0000 Signed Impressions: Service Date/Time: Thursday, September 07, 2017 03:45 - CONCLUSION: Emphysema. Large right effusion and consolidation. Thoracic aortic aneurysm and ectasia of the visualized infrarenal abdominal aorta. Thien Tyson MD Radius/Ulna X-Ray 09/06/17 0000 Signed Impressions: Service Date/Time: September 21:18 - CONCLUSION: No acute disease. Degenerative changes involving the scaphotrapezium and scaphotrapezoid joints. Delmar Connor MD Objective Remarks GENERAL: pt sitting up in bed. Appears comfortable. Disoriented. Pleasant as before. SKIN: Warm and dry. HEAD: Normocephalic. dry mucus membranes. EYES: No scleral icterus. No injection or drainage. NECK: Supple, trachea midline. No JVD. CARDIOVASCULAR: Regular rate and rhythm without murmurs, gallops, or rubs. RESPIRATORY:Decreased breath sounds on the right. Patient breathing comfortably however. No accessory muscle use. GASTROINTESTINAL: Abdomen soft, non-tender, nondistended. MUSCULOSKELETAL: No cyanosis, or edema. BACK: Nontender without obvious deformity. No CVA tenderness. Procedures none Medications and IVs Current Medications Medications (Trade) Dose Ordered Sig/Maria M Route Start Time Stop Time Status Last Admin (NS Flush) 2 ml UNSCH PRN IV FLUSH 09/06/17 23:45 (NS Flush) 2 ml BID IV FLUSH 09/07/17 09:00 09/11/17 08:41 (Tylenol) 650 mg Q4H PRN PO 09/06/17 23:45 (Zofran Inj) 4 mg Q6H PRN IVP 09/06/17 23:45 (Narcan Inj) 0.4 mg UNSCH PRN IV PUSH 09/06/17 23:45 (Milk Of Magnesia Liq) 30 ml Q12H PRN PO 09/06/17 23:45 (Senokot) 17.2 mg Q12H PRN PO 09/06/17 23:45 (Dulcolax Supp) 10 mg DAILY PRN RECTAL 09/06/17 23:45 (Lactulose Liq) 30 ml DAILY PRN PO 09/06/17 23:45 (Lipitor) 10 mg HS PO 09/07/17 21:00 09/11/17 20:23 (Sinemet 25-100 Mg) 1 tab Q8HR PO 09/07/17 06:00 09/12/17 13:27 (Lanoxin) 0.125 mg DAILY PO 09/07/17 09:00 09/12/17 09:20 (Aricept) 5 mg HS PO 09/07/17 21:00 09/11/17 20:23 (Proscar) 5 mg DAILY PO 09/07/17 09:00 09/12/17 09:20 (Lasix) 40 mg BID PO 09/07/17 09:00 Future Hold 09/07/17 09:01 (Neurontin) 400 mg HS PO 09/07/17 21:00 09/11/17 20:23 (Keppra) 500 mg BID PO 09/07/17 09:00 09/12/17 09:20 (Zoloft) 25 mg DAILY PO 09/07/17 09:00 09/12/17 09:21 (Flomax) 0.4 mg HS PO 09/07/17 21:00 09/11/17 20:23 Heparin Sodium/ Dextrose 250 ml @ 12 mls/hr TITRATE PRN IV 09/09/17 16:45 09/11/17 18:13 (Duoneb Neb) 1 ampule QID NEB NEB 09/09/17 20:00 09/12/17 19:22 (Levaquin) 750 mg DAILY PO 09/12/17 09:00 09/12/17 09:21 A/P Problem List: (1) Pleural effusion ICD Code: J90 - Pleural effusion, not elsewhere classified (2) DVT (deep venous thrombosis) ICD Code: I82.409 - DVT (deep venous thrombosis) Status: Acute (3) BPH (benign prostatic hypertrophy) ICD Code: N40.0 - BPH (benign prostatic hypertrophy) Status: Acute (4) Pneumonia ICD Code: J18.9 - Pneumonia Status: Acute (5) Hypertension ICD Code: I10 - Hypertension Status: Acute (6) Dementia ICD Code: F03.90 - Dementia Status: Chronic (7) Cellulitis of left forearm ICD Code: L03.114 - Cellulitis of left upper limb Status: Acute (8) History of aortic valve replacement ICD Code: Z95.4 - History of aortic valve replacement Status: Acute Assessment and Plan 87-year-old male with a past medical history of atrial fibrillation on Xarelto, hyperlipidemia, Parkinson's disease, history of CVA and history of aVR presents to the emergency department for evaluation of a draining area on his left upper extremity. Pleural effusion, right Patient with new moderate sized right pleural effusion, as compared to previous chest x-ray on 03/08/17 - Etiology undetermined, patient may benefit from diagnostic thoracentesis - Holding Xarelto - CT chest showed emphysema. Large right effusion and consolidation. Thoracic aortic aneurysm and ectasia of the visualized infrarenal abdominal aorta Stop Lasix. Thoracentesis with large leukocyte, eosinophil count, exudative. Possibly secondary to malignancy versus atypical infection. Consult pulmonology. Cytology ordered and pending. As there is a large red blood cell count, possible hemothorax. 09/10 chest ultrasound showed a complex pleural effusion which is septated. I will follow-up with pulmonology recommendations. Continue with IV heparin drip for now. 09/11 discussed the case with Dr. Tucker from pulmonary. Options to treat the pleural effusion would include pleurodesis, however the patient is not a good candidate for the surgery now. Pulmonology recommended that the patient will be discharged from the standpoint. discussed this with the patient's son who agrees. 09/12 repeat chest ultrasound does not show any changes. fu pulmonology recommendations. Pneumonia, community acquired - Chest x-ray significant for right mid and lower lung field infiltrates, personally reviewed - Status post vancomycin/Zosyn in the emergency department -Continue on Levaquin IV AFB stain of pleural fluid. Continue Levaquin. White count within normal limits. 09/12 no AFB seen, mycobacterial culture pending. Continue oral Levaquin. Cellulitis, Left Upper Extremity - elbow -Improved. Antibiotics as above Atrial fibrillation History of stroke with aVR Thrombophilia diagnosed in the past. - Continue anticoagulation with Xarelto - Continue home medications 09/12 Will resume Xarelto in am as patient had thoracentesis and there are no plans for another one - if respiratory status stable. Awaiting pulmonary recommendations. Dysphagia. This appears to be an intermittent issue seen in the past as well. We'll order speech evaluation, placed on nectar thick liquids for now. Continue to monitor. 09/09. Await speech therapy recommendations. Discussed with nurse, and patient appears to be tolerating nectar thickened liquids much better, without any coughing. Hyperlipidemia Continue home medications Parkinson's disease - Continue Sinemet PT and OT following. Case management consult ordered. Hypotension Patient's blood pressure low with a systolic blood pressure in the 90s. Ordered him a bolus of 250 cc of normal saline which was administered that much improvement. I will give a second bolus of 150 cc of normal saline. I will possibly place on IV fluids for maintenance. Likely hypotension secondary to overdiuresis. 09/12 Patient still hypotensive - ordered a 500 ml ns bolus. DVT prop SCDs Discharge Planning DC in am pending improvement of BP. Ab Morton MD Sep 12, 2017 19:29
--- NOTE | 2017-09-12 20:04 | HHI.PR ---
Subjective Remarks More awake and on Room air sat 96 US of chest shows a Complex effusion. Not enough fluid to drain. Overall better. On Xarelto. Objective Vital Signs Date Time Temp Pulse Resp B/P (MAP) Pulse Ox O2 Delivery O2 Flow Rate FiO2 09/12/17 19:00 98.0 60 16 95/58 (70) 97 09/12/17 16:00 59 09/12/17 16:00 98.1 64 17 100/59 (73) 94 09/12/17 15:33 95 21 09/12/17 12:00 97.3 69 18 96/55 (69) 95 09/12/17 12:00 64 09/12/17 08:58 93 09/12/17 08:00 98.0 62 18 86/49 (61) 96 09/12/17 08:00 64 09/12/17 07:00 Room Air 09/12/17 04:00 60 09/12/17 04:00 Room Air 09/12/17 04:00 98.1 79 16 90/61 (71) 93 09/12/17 00:00 97.3 72 18 95/52 (66) 95 09/12/17 00:00 Room Air 09/12/17 00:00 59 I/O 09/11/17 09/11/17 09/11/17 09/12/17 09/12/17 09/12/17 07:00 15:00 23:00 07:00 15:00 23:00 Intake Total 0 ml 220 ml 120 ml 120 ml Output Total 100 ml 425 ml 300 ml 150 ml Balance -100 ml -205 ml -180 ml -30 ml Intake Oral 0 ml 220 ml 120 ml 120 ml Output Urine Total 100 ml 425 ml 300 ml 150 ml # Bowel Movements 0 0 0 Result Diagram: 09/12/17 0625 09/12/17 0625 Objective Remarks GENERAL: This is an averagely built elderly man who appears chronically ill. HEAD, EYES, EARS, NOSE, THROAT: Head normocephalic. The pupils are reactive. Arcus senilis was seen. Tongue was dry. Throat was clear. NECK: The neck is supple. No lymphadenopathy. No bruits or thyroid enlargement. CHEST: Decreased breath sounds over the right lower chest. Occasional wheezes anteriorly. Few Basal crackles. HEART: Heart sounds are regular. S1 and S2 with no murmur. ABDOMEN: Abdomen is soft and scaphoid. No masses. No organomegaly or tenderness. EXTREMITIES: Minimal edema with decreased pulses. NEUROLOGIC: Reflexes are 1+. The patient does move his extremities mostly the right side . SKIN: Dry and cool. Assessment and Plan Assessment and Plan IMPRESSION: 1. Recurrent right pleural effusion with atelectasis right lower lobe. 2. Atrial fibrillation, chronic, with arteriosclerotic heart disease. 3. History of aortic valve replacement for aortic stenosis. 4. CVA with left hemiparesis. 5. History of DVT of the leg. 6. Dementia. 7. Depression. 8. Hypertension. Plan : 1. D/C O2 . 2. Cont Anticoagulants 3. Nebs tid Duoneb 4. Continue antibiotics , Levaquin PO 5. IS at bedside qid. 6. OK to go Home 7. If he has increase in effusion he may be a candidate for Pleur X Catheter Benson Mcgovern MD Sep 12, 2017 20:04
[2017-09-12] MEDS: TAMSULOSIN HCL 0.4 MG CAP PO SCH (20:40)
[2017-09-12] MEDS: DONEPEZIL HCL 5 MG TAB PO SCH (20:41)
[2017-09-12] MEDS: GABAPENTIN 400 MG CAP PO SCH (20:42)
[2017-09-12] MEDS: ATORVASTATIN 10 MG TAB PO SCH (20:42)
[2017-09-12] MEDS: HEPARIN-D5W 25,000 U/250 ML 250 ML IV PRN (23:00)
[2017-09-13] VITALS (9 sets, daily range): BP systolic 104–127; BP diastolic 55–67; PULSE 60–69; RESP 16–20; TEMP 97.5–98.3; O2SAT 94–97
[2017-09-13] MEDS: CARBIDOPA/LEVODOPA 25 MG/100 MG TAB PO SCH ×2 (05:14→16:39)
[2017-09-13] MEDS: RESP: ALBUTEROL 2.5 MG/IPRATROPIUM 0.5 MG NEB (SCH) NEB ×3 (07:59→15:15)
[2017-09-13] MEDS: SODIUM CHLORIDE 0.9% FLUSH 10 ML FLUSH IV FLUSH SCH (09:00)
[2017-09-13] MEDS: DIGOXIN 0.125 MG TAB PO SCH (09:02)
[2017-09-13] MEDS: SERTRALINE HCL 50 MG TAB PO SCH (09:02)
[2017-09-13] MEDS: FINASTERIDE 5 MG TAB PO SCH (09:02)
[2017-09-13] MEDS: LEVOFLOXACIN 750 MG TAB PO SCH (09:02)
[2017-09-13] MEDS: levETIRAcetam 500 MG TAB PO SCH (09:02)
[2017-09-13] MEDS ORDERED: RIVAROXABAN 20 MG TAB PO SCH (11:00)
--- NOTE | 2017-09-13 13:13 | HHI.PR ---
Subjective Remarks Alert and eating lunch and on Room air sat 96 US of chest shows a Complex effusion. Not enough fluid to drain. Overall better. On Xarelto. Will go home Objective Vital Signs Date Time Temp Pulse Resp B/P (MAP) Pulse Ox O2 Delivery O2 Flow Rate FiO2 09/13/17 11:30 97.6 60 16 104/55 (71) 94 09/13/17 08:19 97.5 60 16 106/55 (72) 97 09/13/17 08:00 21 09/13/17 04:30 98.3 60 18 122/63 (82) 95 09/13/17 04:30 Room Air 09/13/17 03:45 60 09/13/17 00:30 97.9 69 19 127/67 (87) 96 09/13/17 00:30 Room Air 09/12/17 23:45 60 09/12/17 20:30 98.1 63 17 106/57 (73) 95 09/12/17 20:30 Room Air 09/12/17 19:49 60 09/12/17 19:00 Room Air 09/12/17 19:00 98.0 60 16 95/58 (70) 97 09/12/17 16:00 59 09/12/17 16:00 98.1 64 17 100/59 (73) 94 09/12/17 15:33 95 21 I/O 09/12/17 09/12/17 09/12/17 09/13/17 09/13/17 09/13/17 07:00 15:00 23:00 07:00 15:00 23:00 Intake Total 120 ml 120 ml 47 ml 229 ml 56 ml Output Total 300 ml 150 ml 150 ml Balance -180 ml -30 ml 47 ml 79 ml 56 ml Intake Oral 120 ml 120 ml 180 ml IV Total 47 ml 49 ml 56 ml Output Urine Total 300 ml 150 ml 150 ml # Bowel Movements 0 0 Result Diagram: 09/12/1725 09/12/17 0625 Objective Remarks GENERAL: This is an averagely built elderly man who appears chronically ill. HEAD, EYES, EARS, NOSE, THROAT: Head normocephalic. The pupils are reactive. Arcus senilis was seen. Tongue was dry. Throat was clear. NECK: The neck is supple. No lymphadenopathy. No bruits or thyroid enlargement. CHEST: Decreased breath sounds over the right lower chest. Few Basal crackles. HEART: Heart sounds are regular. S1 and S2 with no murmur. ABDOMEN: Abdomen is soft and scaphoid. No masses. No organomegaly or tenderness. EXTREMITIES: Minimal edema with decreased pulses. NEUROLOGIC: Reflexes are 1+. The patient does move his extremities mostly the right side . SKIN: Dry and cool. Assessment and Plan Assessment and Plan IMPRESSION: 1. Recurrent right pleural effusion with atelectasis right lower lobe. 2. Atrial fibrillation, chronic, with arteriosclerotic heart disease. 3. History of aortic valve replacement for aortic stenosis. 4. CVA with left hemiparesis. 5. History of DVT of the leg. 6. Dementia. 7. Depression. 8. Hypertension. Plan : 1. D/C O2 . 2. Cont Anticoagulants 3. Nebs tid Duoneb PRN 4. Continue antibiotics , Levaquin PO X 3 days 5. IS at bedside qid. 6. OK to go Home 7. If he has increase in effusion he may be a candidate for Pleur X Catheter 8. D/W Benson Engle MD Sep 13, 2017 13:13
--- NOTE | 2017-09-13 13:49 | HHI.PR ---
Subjective Remarks Denies chest pain, shortness of breath. Afebrile. Vital signs stable. Hypotension resolved. Objective Vitals Vital Signs Date Time Temp Pulse Resp B/P (MAP) Pulse Ox O2 Delivery O2 Flow Rate FiO2 09/13/17 11:30 97.6 60 16 104/55 (71) 94 09/13/17 08:19 97.5 60 16 106/55 (72) 97 09/13/17 08:00 21 09/13/17 04:30 98.3 60 18 122/63 (82) 95 09/13/17 04:30 Room Air 09/13/17 03:45 60 09/13/17 00:30 97.9 69 19 127/67 (87) 96 09/13/17 00:30 Room Air 09/12/17 23:45 60 09/12/17 20:30 98.1 63 17 106/57 (73) 95 09/12/17 20:30 Room Air 09/12/17 19:49 60 09/12/17 19:00 Room Air 09/12/17 19:00 98.0 60 16 95/58 (70) 97 09/12/17 16:00 59 09/12/17 16:00 98.1 64 17 100/59 (73) 94 09/12/17 15:33 95 21 I/O 09/12/17 09/12/17 09/12/17 09/13/17 09/13/17 09/13/17 07:00 15:00 23:00 07:00 15:00 23:00 Intake Total 120 ml 120 ml 47 ml 229 ml 56 ml Output Total 300 ml 150 ml 150 ml Balance -180 ml -30 ml 47 ml 79 ml 56 ml Intake Oral 120 ml 120 ml 180 ml IV Total 47 ml 49 ml 56 ml Output Urine Total 300 ml 150 ml 150 ml # Bowel Movements 0 0 Result Diagram: 09/12/1725 09/12/1725 Imaging Last Impressions Chest Ultrasound 09/11/17 0000 Signed Impressions: Service Date/Time: Monday, September 11, 2017 21:13 - CONCLUSION: Complex septated fluid in the right pleural space. No significant change compared to the prior study. William Jaimes MD Chest X-Ray 09/09/17 0000 Signed Impressions: Service Date/Time: Saturday, September 09, 2017 10:23 - CONCLUSION: 1. Small right pleural effusion and right basilar atelectasis. Significant decrease in size of pleural effusion. 2. Status post CABG. Robert Nuñez MD Thoracentesis Ultrasound 09/07/17 0000 Signed Impressions: Service Date/Time: Thursday, September 07, 2017 14:31 - CONCLUSION: Uncomplicated ultrasound guided thoracentesis. Robert Nuñez MD Chest CT 09/07/17 0000 Signed Impressions: Service Date/Time: Thursday, September 07, 2017 03:45 - CONCLUSION: Emphysema. Large right effusion and consolidation. Thoracic aortic aneurysm and ectasia of the visualized infrarenal abdominal aorta. Thien Tyson MD Radius/Ulna X-Ray 09/06/17 0000 Signed Impressions: Service Date/Time: September 21:18 - CONCLUSION: No acute disease. Degenerative changes involving the scaphotrapezium and scaphotrapezoid joints. Delmar Connor MD Objective Remarks GENERAL: pt sitting up in bed. Appears comfortable. Pleasant as before. SKIN: Warm and dry. HEAD: Normocephalic. Moist mucous membranes. EYES: No scleral icterus. No injection or drainage. NECK: Supple, trachea midline. No JVD. CARDIOVASCULAR: Regular rate and rhythm without murmurs, gallops, or rubs. RESPIRATORY:Decreased breath sounds on the right. Patient breathing comfortably however. No accessory muscle use. GASTROINTESTINAL: Abdomen soft, non-tender, nondistended. MUSCULOSKELETAL: No cyanosis, or edema. BACK: Nontender without obvious deformity. No CVA tenderness. Procedures none Medications and IVs Current Medications Medications (Trade) Dose Ordered Sig/Maria M Route Start Time Stop Time Status Last Admin (NS Flush) 2 ml UNSCH PRN IV FLUSH 09/06/17 23:45 (NS Flush) 2 ml BID IV FLUSH 09/07/17 09:00 09/11/17 08:41 (Tylenol) 650 mg Q4H PRN PO 09/06/17 23:45 (Zofran Inj) 4 mg Q6H PRN IVP 09/06/17 23:45 (Narcan Inj) 0.4 mg UNSCH PRN IV PUSH 09/06/17 23:45 (Milk Of Magnesia Liq) 30 ml Q12H PRN PO 2/1/18 23:45 (Senokot) 17.2 mg Q12H PRN PO 09/06/17 23:45 (Dulcolax Supp) 10 mg DAILY PRN RECTAL 09/06/17 23:45 (Lactulose Liq) 30 ml DAILY PRN PO 09/06/17 23:45 (Lipitor) 10 mg HS PO 09/07/17 21:00 09/12/17 20:42 (Sinemet 25-100 Mg) 1 tab Q8HR PO 09/07/17 06:00 09/13/17 05:14 (Lanoxin) 0.125 mg DAILY PO 09/07/17 09:00 09/13/17 09:02 (Aricept) 5 mg HS PO 09/07/17 21:00 09/12/17 20:41 (Proscar) 5 mg DAILY PO 09/07/17 09:00 09/13/17 09:02 (Lasix) 40 mg BID PO 09/07/17 09:00 Future Hold 09/07/17 09:01 (Neurontin) 400 mg HS PO 09/07/17 21:00 09/12/17 20:42 (Keppra) 500 mg BID PO 09/07/17 09:00 09/13/17 09:02 (Zoloft) 25 mg DAILY PO 09/07/17 09:00 09/13/17 09:02 (Flomax) 0.4 mg HS PO 09/07/17 21:00 09/12/17 20:40 (Duoneb Neb) 1 ampule QID NEB NEB 09/09/17 20:00 09/13/17 12:00 (Levaquin) 750 mg DAILY PO 09/12/17 09:00 09/13/17 09:02 (Xarelto) 20 mg DAILY PO 09/13/17 11:00 Urinary Catheter: No Vascular Central Line Catheter: No A/P Problem List: (1) Pleural effusion ICD Code: J90 - Pleural effusion, not elsewhere classified (2) DVT (deep venous thrombosis) ICD Code: I82.409 - DVT (deep venous thrombosis) Status: Acute (3) BPH (benign prostatic hypertrophy) ICD Code: N40.0 - BPH (benign prostatic hypertrophy) Status: Acute (4) Pneumonia ICD Code: J18.9 - Pneumonia Status: Acute (5) Hypertension ICD Code: I10 - Hypertension Status: Acute (6) Dementia ICD Code: F03.90 - Dementia Status: Chronic (7) Cellulitis of left forearm ICD Code: L03.114 - Cellulitis of left upper limb Status: Acute (8) History of aortic valve replacement ICD Code: Z95.4 - History of aortic valve replacement Status: Acute Assessment and Plan 87-year-old male with a past medical history of atrial fibrillation on Xarelto, hyperlipidemia, Parkinson's disease, history of CVA and history of aVR presents to the emergency department for evaluation of a draining area on his left upper extremity. Pleural effusion, right Patient with new moderate sized right pleural effusion, as compared to previous chest x-ray on 03/08/17 - Etiology undetermined, patient may benefit from diagnostic thoracentesis - Holding Xarelto - CT chest showed emphysema. Large right effusion and consolidation. Thoracic aortic aneurysm and ectasia of the visualized infrarenal abdominal aorta Stop Lasix. Thoracentesis with large leukocyte, eosinophil count, exudative. Possibly secondary to malignancy versus atypical infection. Consult pulmonology. Cytology ordered and pending. As there is a large red blood cell count, possible hemothorax. 09/10 chest ultrasound showed a complex pleural effusion which is septated. I will follow-up with pulmonology recommendations. Continue with IV heparin drip for now. 09/11 discussed the case with Dr. Dr. Hylton from pulmonary. Options to treat the pleural effusion would include pleurodesis, however the patient is not a good candidate for the surgery now. Pulmonology recommended that the patient will be discharged from the standpoint. discussed this with the patient's son who agrees. 09/12 repeat chest ultrasound does not show any changes. fu pulmonology recommendations. 09/13 discussed the case with Dr. Hylton over the phone. To the [place] states that the pleural effusion has not changed and probably decortication and pleurodesis is an option for this patient, however due to multiple comorbidities and age is probably not a good candidate for's surgical procedure. The family also is not very supportive of a surgical procedure to try to manage the effusion. Dr. Hylton cleared the patient for discharge from the pulmonology standpoint and recommended follow-up with him as an outpatient in about 2-3 weeks to repeat a chest x-ray and follow-up effusion. Pneumonia, community acquired - Chest x-ray significant for right mid and lower lung field infiltrates, personally reviewed - Status post vancomycin/Zosyn in the emergency department -Continue on Levaquin IV AFB stain of pleural fluid. Continue Levaquin. White count within normal limits. 09/12 no AFB seen, mycobacterial culture pending. Continue oral Levaquin. Cellulitis, Left Upper Extremity - elbow -Improved. Antibiotics as above Atrial fibrillation History of stroke with aVR Thrombophilia diagnosed in the past. - Continue anticoagulation with Xarelto - Continue home medications 09/13 no further plans for surgical procedure. DC IV heparin drip and start the patient on Xarelto. Dysphagia. This appears to be an intermittent issue seen in the past as well. We'll order speech evaluation, placed on nectar thick liquids for now. Continue to monitor. 09/09. Await speech therapy recommendations. Discussed with nurse, and patient appears to be tolerating nectar thickened liquids much better, without any coughing. Hyperlipidemia Continue home medications Parkinson's disease - Continue Sinemet PT and OT following. Case management consult ordered. Hypotension Patient's blood pressure low with a systolic blood pressure in the 90s. Ordered him a bolus of 250 cc of normal saline which was administered that much improvement. I will give a second bolus of 150 cc of normal saline. I will possibly place on IV fluids for maintenance. Likely hypotension secondary to overdiuresis. 09/12 Patient still hypotensive - ordered a 500 ml ns bolus. 09/13 hypotension resolved. BP stable. DVT prop SCDs Discharge Planning DC to SNF when arrangements made. manager employee benefits to assist. Ab Morton MD Sep 13, 2017 13:49
[2017-09-13] MEDS ORDERED: LEVA750T9 PO (15:20)
--- NOTE | 2017-09-13 15:22 | HHI.DCPOC ---
Discharge Care Plan Diagnosis: (1) Hypotension (2) History of aortic valve replacement (3) PNA (pneumonia) (4) Pleural effusion (5) Atrial fibrillation (6) Community acquired pneumonia (7) Dysphagia (8) H/O deep venous thrombosis Goals to Promote Your Health * To prevent worsening of your condition and complications * To maintain your health at the optimal level Directions to Meet Your Goals Take your medications as prescribed Follow your dietary instruction Follow activity as directed Keep your appointments as scheduled Take your immunizations and boosters as scheduled If your symptoms worsen call your PCP, if no PCP go to Urgent Care Center or Emergency Room Smoking is Dangerous to Your Health. Avoid second hand smoke Call the 24-hour hour crisis hotline for domestic abuse at Ab Morton MD Sep 13, 2017 15:21
--- NOTE | 2017-09-13 15:24 | HHI.DS ---
Discharge Summary Admission Date Sep 06, 2017 at 22:47 Discharge Date: Sep 13, 2017 Admitting Diagnosis pneumonia, pleural effusion, cellulitis (1) Pleural effusion ICD Code: J90 - Pleural effusion, not elsewhere classified (2) DVT (deep venous thrombosis) ICD Code: I82.409 - DVT (deep venous thrombosis) Status: Acute (3) BPH (benign prostatic hypertrophy) ICD Code: N40.0 - BPH (benign prostatic hypertrophy) Status: Acute (4) Pneumonia ICD Code: J18.9 - Pneumonia Status: Acute (5) Hypertension ICD Code: I10 - Hypertension Status: Acute (6) Dementia ICD Code: F03.90 - Dementia Status: Chronic (7) Cellulitis of left forearm ICD Code: L03.114 - Cellulitis of left upper limb Status: Acute (8) History of aortic valve replacement ICD Code: Z95.4 - History of aortic valve replacement Status: Acute Procedures none Brief History - From Admission 87-year-old male with a past medical history of atrial fibrillation on Xarelto, hyperlipidemia, Parkinson's disease, history of CVA and history of aVR presents to the emergency department for evaluation of a draining area on his left upper extremity. The patient reports that he has had left upper extremity pain and swelling for approximately 2 weeks. A couple of days ago the patient had a "cyst" over his elbow which popped and began to drain purulent material. Patient denies fever/chills. Endorses a cough 1 week. Denies shortness of breath or chest pain. Per ED notes, the patient's son was also concerned about increasing generalized weakness. Of note, the patient endorses a 50 pound weight loss over the past 2.5 months. CBC/BMP: 09/12/17 0625 09/12/17 0625 Significant Findings Laboratory Tests Test 09/11/17 08:20 09/11/17 16:06 09/11/17 22:32 09/12/17 06:25 Monocytes (%) (Auto) 10.1 % (0.0-8.0) Activated Partial Thromboplast Time 80.1 SEC (24.3-30.1) 46.7 SEC (24.3-30.1) 51.1 SEC (24.3-30.1) Blood Urea Nitrogen 24 MG/DL (7-18) 21 MG/DL (7-18) Albumin 2.4 GM/DL (3.4-5.0) Alkaline Phosphatase 163 U/L (45-117) Aspartate Amino Transf (AST/SGOT) 12 U/L (15-37) Alanine Aminotransferase (ALT/SGPT) LESS THAN 6 U/L (12-78) Potassium Level 3.1 MEQ/L (3.5-5.1) Chloride Level 97 MEQ/L (98-107) 97 MEQ/L (98-107) Estimat Glomerular Filtration Rate 58 ML/MIN (>89) 70 ML/MIN (>89) Red Blood Count 4.34 MIL/MM3 (4.50-5.90) Sodium Level 135 MEQ/L (136-145) Test 09/12/17 10:00 09/13/17 07:47 Activated Partial Thromboplast Time 47.2 SEC (24.3-30.1) 43.5 SEC (24.3-30.1) PE at Discharge GENERAL: pt sitting up in bed. Appears comfortable. Pleasant as before. SKIN: Warm and dry. HEAD: Normocephalic. Moist mucous membranes. EYES: No scleral icterus. No injection or drainage. NECK: Supple, trachea midline. No JVD. CARDIOVASCULAR: Regular rate and rhythm without murmurs, gallops, or rubs. RESPIRATORY:Decreased breath sounds on the right. Patient breathing comfortably however. No accessory muscle use. GASTROINTESTINAL: Abdomen soft, non-tender, nondistended. MUSCULOSKELETAL: No cyanosis, or edema. BACK: Nontender without obvious deformity. No CVA tenderness. Pt Condition on Discharge: Stable Discharge Disposition: Discharge to SNF Discharge Instructions DIET: Follow Instructions for: Heart Healthy Diet Activities you can perform: See Additionl Instruction Other Activity Instructions: as per PT Out of bed with assistance only. Ab Morton MD Sep 13, 2017 15:24
== END 2017-09-13 18:10 | DRG 602 ==
LOC: NEPD 18:34 → NEDA 22:47 → NEPGCP 23:55 → N04B 09-07 17:15
PROVIDERS: ADMIT Hospitalist; ATTEND Hospitalist
PROC: 0W993ZX Drainage of Right Pleural Cavity, Percutaneous Approach, Diagnostic (ICD-10-PCS; principal; 2017-09-07)
DX: L03.114 Cellulitis of left upper limb (principal); J18.9 Pneumonia, unspecified organism; J90 Pleural effusion, not elsewhere classified; E46 Unspecified protein-calorie malnutrition; I95.89 Other hypotension; I11.0 Hypertensive heart disease with heart failure; I50.9 Heart failure, unspecified; F03.90 Unspecified dementia, unspecified severity, without behavioral disturbance, psychotic disturbance, mood disturbance, and anxiety; I71.2 Thoracic aortic aneurysm, without rupture; I69.354 Hemiplegia and hemiparesis following cerebral infarction affecting left non-dominant side; Z68.1 Body mass index [BMI] 19.9 or less, adult; J98.11 Atelectasis; R63.4 Abnormal weight loss; R63.0 Anorexia; R13.10 Dysphagia, unspecified; G20 Parkinson's disease; I48.2 Chronic atrial fibrillation; Z79.02 Long term (current) use of antithrombotics/antiplatelets; N40.0 Benign prostatic hyperplasia without lower urinary tract symptoms; E78.5 Hyperlipidemia, unspecified; N28.9 Disorder of kidney and ureter, unspecified; I25.10 Atherosclerotic heart disease of native coronary artery without angina pectoris; F32.9 Major depressive disorder, single episode, unspecified; Z95.2 Presence of prosthetic heart valve; Z95.1 Presence of aortocoronary bypass graft; Z95.0 Presence of cardiac pacemaker; Z87.891 Personal history of nicotine dependence; Z86.718 Personal history of other venous thrombosis and embolism
CPT/HCPCS: 32555; 71045; 71250; 73090; 76604; 80048; 80053; 80069; 80162; 81001; 82945; 83605; 83615; 83735; 83880; 83986; 84157; 85025; 85027; 85610; 85730; 86480; 87015; 87040; 87070; 87116; 87205; 87206; 87804; 88112; 88305; 89051; 94060; 94640; 94664; 96365; 96375; C1729; J1644; J1940; J1956; J2543; J3370; J3480; J7040; J7050

== ENCOUNTER 2017-12-02 18:18 | Emergency (ER) | payer MEDICARE, OTHER ==
[~2017-12-02] VITALS: Ht 180.3 cm; Wt 63.5 kg
[~2017-12-02 18:18] MED LIST changes: -FLUT1SPR9 EACH NARE; +LEVA750T9 PO
[2017-12-02 18:28] VITALS: BP 100/54; PULSE 61; RESP 16; TEMP 98; O2SAT 96
--- NOTE | 2017-12-02 19:08 | PD ---
HPI Chief Complaint: Skin Problem Time Seen by Provider: 19:03 Travel History International Travel<30 days: No Contact w/Intl Traveler<30days: No Traveled to known affect area: No History of Present Illness HPI 87-year-old male with history of dementia, previous CVA, with unsteady gait, presents emergency department for evaluation of a skin tear to his right arm. Patient was out with his son when he misstepped and almost fell. His son grabbed his right arm causing a large skin tear. He reports moderate pain at the site of the tears. Patient did not fall to the ground. He did not hit his head or lose consciousness. This was a simple misstep and near fall. Patient did not have any lightheaded sensation or syncopal event. He has no other symptoms to report. PFSH Past Medical History Hx Anticoagulant Therapy: Yes Arthritis: No Atrial Fibrillation: Yes Blood Disorders: No Anxiety: No Depression: No Heart Rhythm Problems: Yes (AFIB ) Cancer: No Cardiac Catheterization: Yes Cardiovascular Problems: Yes (VALVE REPLACEMENT) High Cholesterol: Yes Chest Pain: No Congestive Heart Failure: Yes Cerebrovascular Accident: Yes (CVA) Coronary Artery Disease: Yes Diminished Hearing: No Endocrine: No Gastrointestinal Disorders: Yes Genitourinary: Yes (INCONTINENT ) Headaches: Yes Hypertension: Yes Immune Disorder: No Implanted Vascular Access Dvce: Yes Musculoskeletal: No Neurologic: Yes (CVA APPROX 10 YEARS AGO) Psychiatric: No Reproductive: No Respiratory: No Integumentary: Yes Migraines: No Pneumonia: Yes Renal Failure: No Seizures: No Past Surgical History Abdominal Surgery: No Body Medical Devices: PACEMAKER Cardiac Surgery: Yes (PACEMAKER ON DEMAND) Coronary Artery Bypass Graft: Yes (X 1 IN 1994) Endocrine Surgery: No Eye Surgery: No Genitourinary Surgery: No Gynecologic Surgery: No Neurologic Surgery: No Oral Surgery: No Pacemaker: Yes Thoracic Surgery: No Valve Replacement: Yes Other Surgery: Yes (CYST (pilonidal)) Social History Alcohol Use: Yes ("MAYBE 2 DRINKS A WEEK") Tobacco Use: No (QUIT 50 YEARS AGO) Substance Use: No Allergies-Medications (Allergen,Severity, Reaction): Coded Allergies: No Known Allergies (Verified Allergy, Unknown, 09/06/17) Reported Meds & Prescriptions Reported Meds & Active Scripts Active Keflex (Cephalexin) 500 Mg Cap 500 Mg PO Q6H 5 Days Levaquin (Levofloxacin) 750 Mg Tablet 750 Mg PO DAILY Carbidopa-Levodopa 25-100 Mg Tab 1 Tab PO Q8HR 30 Days Reported Aricept (Donepezil) 23 Mg Tab 5 Mg PO HS Do not split, crushed or chewed. Vitamin B-12 (Cyanocobalamin) 1,000 Mcg Subl 1,000 Mcg SL DAILY Folic Acid 800 Mcg Tab 1 Mg PO DAILY Xarelto (Rivaroxaban) 20 Mg Tab 20 Mg PO DAILY Sertraline (Sertraline HCl) 50 Mg Tab 25 Mg PO DAILY Proscar (Finasteride) 5 Mg Tab 5 Mg PO DAILY Do not crush. Levetiracetam 500 Mg Tab 500 Mg PO BID Gabapentin 400 Mg Cap 400 Cap PO HS Furosemide 40 Mg Tab 40 Mg PO BID Flomax (Tamsulosin HCl) 0.4 Mg Cap 0.4 Mg PO HS Digoxin 0.125 Mg Tab 0.125 Mg PO DAILY Atorvastatin (Atorvastatin Calcium) 10 Mg Tab 10 Mg PO HS Review of Systems Except as stated in HPI: all other systems reviewed are Neg Physical Exam Narrative GENERAL: Well-nourished, well-developed elderly male patient, no acute distress. SKIN: Focused skin assessment warm/dry. 3 cm skin tear on the dorsal aspect of the right distal forearm. There is a another 7 cm skin tear on the proximal aspect of the dorsal forearm. There is a 15 cm skin tear on the medial aspect of the proximal right upper extremity and there is a 10 cm skin tear on the lateral aspect of the proximal right upper extremity. HEAD: Normocephalic. EYES: No scleral icterus. No injection or drainage. NECK: Supple, trachea midline. No JVD or lymphadenopathy. CARDIOVASCULAR: Regular rate and rhythm without murmurs, gallops, or rubs. RESPIRATORY: Breath sounds equal bilaterally. No accessory muscle use. MUSCULOSKELETAL: No cyanosis, or edema. BACK: Nontender without obvious deformity. No CVA tenderness. Data Data Last Documented VS Vital Signs Date Time Temp Pulse Resp B/P (MAP) Pulse Ox O2 Delivery O2 Flow Rate FiO2 12/02/17 18:28 98.0 61 16 100/54 (69) 96 Orders Orders Ed Discharge Order (12/02/17 19:53) MDM Medical Decision Making Medical Screen Exam Complete: Yes Emergency Medical Condition: Yes Medical Record Reviewed: Yes Differential Diagnosis Skin avulsion versus tear versus abrasion versus laceration Narrative Course 87-year-old male presents emergency department for evaluation of skin tear sustained to the right upper extremity in a near fall. Patient appears without distress. Wounds are cleansed and approximated without difficulty. Patient tolerated this well. Due to the size of the skin tears, patient will be started empirically on Keflex. He is encouraged to follow-up with his primary care provider this week and return immediately with acute worsening symptoms. Procedures Procedure Narrative All 4 skin tears were cleansed with wound cleanser. Skin was laid back over the wounds using sterile Q-tips. Skin was then secured using Dermabond skin adhesive. Patient tolerated this well. Diagnosis Primary Impression: Skin tear of right forearm without complication Qualified Codes: S51.811A - Laceration without foreign body of right forearm, initial encounter Additional Impressions: Skin tear of right elbow without complication Qualified Codes: S51.011A - Laceration without foreign body of right elbow, initial encounter Skin tear of right upper arm without complication Qualified Codes: S41.111A - Laceration without foreign body of right upper arm , initial encounter Referrals: Primary Care Physician Patient Instructions: General Instructions, Skin Adhesive Care (ED) Additional Instructions: Follow-up with a primary care provider this week Do not apply ointment to the wound as this will dissolve the glue Elevate to reduce pain Tylenol as needed as directed on the package for pain Return immediately with acute worsening of symptoms Med/Other Pt SpecificInfo: Prescription(s) given Scripts Cephalexin (Keflex) 500 Mg Cap 500 MG PO Q6H for Infection for 5 Days, #20 CAP 0 Refills Prov: Bel Thompson 12/02/17 Disposition: 01 DISCHARGE HOME Condition: Stable Bel Thompson Dec 02, 2017 19:08
[2017-12-02] MEDS ORDERED: CEPH-460 PO (19:56)
== END 2017-12-02 20:25 | disposition home or self-care (01) ==
LOC: NEPD 18:18
DX: S51.811A Laceration without foreign body of right forearm, initial encounter (principal); S51.011A Laceration without foreign body of right elbow, initial encounter; S41.111A Laceration without foreign body of right upper arm, initial encounter; W51.XXXA Accidental striking against or bumped into by another person, initial encounter; R26.81 Unsteadiness on feet; I48.91 Unspecified atrial fibrillation; I11.0 Hypertensive heart disease with heart failure; I50.9 Heart failure, unspecified; Z87.891 Personal history of nicotine dependence
CPT/HCPCS: 12007

== ENCOUNTER 2018-04-08 20:19 | Observation (INO) ==
--- NOTE | 2018-04-08 20:46 | ED ---
HPI General Chief complaint: Altered Mental Status Stated complaint: AMS/Confused Time Seen by Provider: 04/08/18 20:44 Source: EMS Mode of arrival: EMS Limitations: no limitations History of Present Illness HPI narrative: 87yo M with PMH of left sided CVA was brought in by [facility] because family said he was having visual hallucinations today. Pt was last normal last night. Denies fever, cough, chest pain, sob, n/v, abdominal pain, new weakness or numbness. Related Data Home Medications Medication Instructions Recorded Confirmed atorvastatin 10 mg PO HS 04/08/18 04/09/18 furosemide 20 mg PO DAILY 04/08/18 04/09/18 levetiracetam 500 mg PO Q12H 04/08/18 04/09/18 rivaroxaban [Xarelto] 20 mg PO DAILY 04/08/18 04/09/18 sertraline 25 mg PO DAILY 04/08/18 04/09/18 tamsulosin 0.4 mg PO DAILY 04/08/18 04/09/18 Allergies Allergy/AdvReac Type Severity Reaction Status Date / Time No Known Allergies Allergy Unverified 04/08/18 20:40 Review of Systems ROS: all other systems reviewed are negative [facility] Medical History Medical History Depression (Acute) History of CHF (congestive heart failure) (Acute) Surgical History Surgical History History of aortic valve replacement (Acute) Social History Social History Substance History: No History of Abuse Smoking Status: Former smoker How Often Do You Have a Drink Containing Alcohol: Never Recent Travel in [facility] within the Last 8 Weeks: No Recent Out of Country Travel within the Last 8 Weeks: No Immunization History Tetanus Immunization: <5 Years Exam Narrative Exam Narrative: GENERAL: 87yo M not in distress. SKIN: Focused skin assessment warm/dry. HEAD: Atraumatic. Normocephalic. EYES: Pupils equal and round at 4mm bilaterally. EOMI. ENT: No nasal bleeding or discharge. Mucous membranes pink and moist. NECK: Trachea midline. No JVD. CARDIOVASCULAR: Regular rate and rhythm. No murmur appreciated. RESPIRATORY: No accessory muscle use. Clear to auscultation. Breath sounds equal bilaterally. GASTROINTESTINAL: Abdomen soft, non-tender, nondistended. MUSCULOSKELETAL: No obvious deformities. No clubbing. No cyanosis. No edema. NEUROLOGICAL: Awake and alert. No obvious cranial nerve deficits. Residual left upper and lower extremity weakness from previous CVA. Sensation equal. Speech normal. PSYCHIATRIC: Appropriate mood and affect; insight and judgment normal. Course Initial Documented Vital Signs Temperature 98.9 F 04/08/18 20:26 Pulse Rate 62 04/08/18 20:26 Respiratory Rate 20 04/08/18 20:26 Blood Pressure 141/66 H 04/08/18 20:26 Pulse Oximetry 95 04/08/18 20:26 Last Documented Vital Signs Temperature 98.9 F 04/08/18 20:26 Pulse Rate 60 04/09/18 00:32 Respiratory Rate 22 04/09/18 00:32 Blood Pressure 132/64 04/09/18 00:32 Pulse Oximetry 97 04/09/18 00:32 Medical Decision Making MDM Narrative Medical decision making narrative: 87yo M with visual hallucinations. Pt's son came and said he said there was water on the ground when there wasnt. Also he has previous similar episodes when he has an infection so just wanted to bring him in to make sure he does not have infection. Labs reviewed, no leukocytosis. H/H normal. BUN is elevated at 36. BUN/creatinine ratio is 3 to 1. CXR showed right mid and lower lung consolidation most likely pneumonia. CT brain showed stable noncontrast head CT. No acute intracranial abnormality. Pt does not clinically have signs of pneumonia except for visual hallucinations that may be from infection so will do CT chest to further evaluate. CT chest showed right upper lobe and right lower lobe airspace consolidation. Appearance not suggestive of mass. Covered with ceftriaxone and azithromycin. Discussed with Dr. Awad's PA and accepted to her service. Medical Screen Exam Complete: Yes Emergency Medical Condition: Yes Differential Diagnosis Differential Diagnosis: AMS secondary to UTI vs. dehydration vs. electrolyte abnormality vs. delirium vs. dementia Lab Data Result diagrams: 04/08/18 20:45 04/08/18 20:45 Lab Results 04/08/18 04/08/18 04/08/18 Range/Units 20:45 20:45 22:47 WBC 8.6 (4.0-11.0) th/mm3 RBC 4.67 (4.50-5.90) mil/mm3 Hgb 14.5 (13.0-17.0) gm/dL Hct 43.9 (39.0-51.0) % MCV 94.0 (80.0-100.0) fL MCH 31.0 (27.0-34.0) pg MCHC 33.0 (32.0-36.0) % RDW 15.1 (11.6-17.2) % Plt Count 269 (150-450) th/mm3 MPV 7.9 (7.0-11.0) fL Neut % (Auto) 76.8 H (16.0-70.0) % Lymph % (Auto) 18.0 (9.0-44.0) % [place] % (Auto) 4.3 (0.0-8.0) % Eos % (Auto) 0.4 (0.0-4.0) % Baso % (Auto) 0.5 (0.0-2.0) % Neut # (Auto) 6.6 (1.8-7.7) th/mm3 Lymph # (Auto) 1.5 (1.0-4.8) th/mm3 [place] # (Auto) 0.4 (0.0-0.9) th/mm3 Eos # (Auto) 0.0 (0.0-0.4) th/mm3 Baso # (Auto) 0.0 (0.0-0.2) th/mm3 WBC Differential . Differential Comment Auto diff final PT 11.3 (9.8-11.6) sec INR 1.1 Ratio APTT 28.4 (24.3-30.1) sec Sodium 141 (136-145) meq/L Potassium 4.4 (3.5-5.1) meq/L Chloride 110 H (98-107) meq/L Carbon Dioxide 23.0 (21.0-32.0) meq/L Anion Gap 8 (5-15) meq/L BUN 36 H (7-18) mg/dL Creatinine 0.82 (0.60-1.30) mg/dL Estimated GFR 88 L (>89) mL/min Random Glucose 129 H (74-106) mg/dL Calcium 8.3 L (8.5-10.1) mg/dL Digoxin 0.4 L (0.8-2.0) ng/mL Imaging Data Radiologist's impression: Head CT 04/08/18 20:44 CONCLUSION: 1. Stable noncontrast head CT. No acute intracranial abnormality is identified. 2. Chronic findings include generalized atrophy and chronic periventricular white matter change with stable encephalomalacia in the right frontal lobe. . Chest X-Ray 04/08/18 21:19 CONCLUSION: Right mid and lower lung consolidation most likely pneumonia. Chest CT 04/09/18 00:21 CONCLUSION: 1. There is right upper lobe and right lower lobe airspace consolidation. Although nonspecific this could represent an infectious process in the appropriate clinical setting. The appearance is not suggestive of a mass but follow-up chest CT should be performed to confirm resolution. 2. At least a portion of the right lower lobe consolidation is chronic and is associated with dense calcification. 3. Very small right pleural effusion with mild pleural thickening. The pleural effusion has decreased in size from the prior study. 4. Nonacute findings include moderate emphysema and coronary artery calcification. Discharge Plan Discharge Disposition Patient Disposition: 30 Still Patient Discharge Details Diagnosis: Pneumonia Physicians Team ED Provider: Vianey Coelho Primary Care Provider: UNKNOWN, Rxs /Orders / Referrals /Forms Prescriptions: No Action atorvastatin 10 mg Tablet 10 mg PO HS RF: 0 levetiracetam 500 mg Tablet 500 mg PO Q12H RF: 0 tamsulosin 0.4 mg Capsule,Extended Release 24hr 0.4 mg PO DAILY RF: 0 sertraline 25 mg Tablet 25 mg PO DAILY RF: 0 furosemide 20 mg Tablet 20 mg PO DAILY RF: 0 rivaroxaban [Xarelto] 20 mg Tablet 20 mg PO DAILY RF: 0 Status ED Status: With Doctor
[2018-04-08 21:37] LABS: Baso % (Auto) 0.5 % (0.0-2.0); Eos % (Auto) 0.4 % (0.0-4.0); Hematocrit 43.9 % (39.0-51.0); Hemoglobin 14.5 gm/dL (13.0-17.0); Lymph # (Auto) 1.5 th/mm3 (1.0-4.8); Mean Platelet Volume 7.9 fL (7.0-11.0); Mono # (Auto) 0.4 th/mm3 (0.0-0.9); Mono % (Auto) 4.3 % (0.0-8.0); Neut # (Auto) 6.6 th/mm3 (1.8-7.7); Neut % (Auto) 76.8 % (16.0-70.0); Platelet Count 269 th/mm3 (150-450); Red Blood Count 4.67 mil/mm3 (4.50-5.90); Red Cell Distribution Width 15.1 % (11.6-17.2); White Blood Count 8.6 th/mm3 (4.0-11.0)
[2018-04-08 22:01] LABS: Calcium 8.3 mg/dL (8.5-10.1); Digoxin 0.4 ng/mL (0.8-2.0); Potassium 4.4 meq/L (3.5-5.1)
--- NOTE | 2018-04-08 22:06 | XR ---
EXAM DATE: 04/08/2018 10:02 PM EDT AGE/SEX: 87 years / Male INDICATIONS: Shortness of breath. CLINICAL DATA: This is the patient's initial encounter. Patient reports that signs and symptoms have been present for 1 day and indicates a pain score of 0/10. MEDICAL/SURGICAL HISTORY: . Congestive heart failure. Hypertension. Hypercholesterolemia. CVA. Coronary artery disease. Afib. HTN. Pneumonia. Pacemaker. CABG. Valve replacement. COMPARISON: [facility], XR CHEST PA AND LAT, 01/28/2018. . FINDINGS: Focal parenchymal consolidation is seen in right mid and lower lung ortiz worse since the prior examination. The rest of the study has not changed. Tiny right pleural effusion is not excluded . CONCLUSION: Right mid and lower lung consolidation most likely pneumonia. Electronically signed by: Roseann Canada MD 04/08/2018 10:04 PM EDT
--- NOTE | 2018-04-08 23:15 | CT ---
EXAM DATE: 04/08/2018 11:06 PM EDT AGE/SEX: 87 years / Male INDICATIONS: Altered mental status. CLINICAL DATA: This is the patient's initial encounter. Patient reports that signs and symptoms have been present for 1 day and indicates a pain score of 0/10. MEDICAL/SURGICAL HISTORY: Cerebrovascular disease. Cardiovascular disease. Hypertension. CABG. P acemaker. RADIATION DOSE: 35.89 CTDI (mGy) COMPARISON: [facility] [place], CT BRAIN W/O CONTRAST, 02/13/2017. . TECHNIQUE: CT of the head without contrast. Using automated exposure control and adjustment of the mA and/or kV according to patient size, radiation dose was kept as low as reasonably achievable to ob tain optimal diagnostic quality images. DICOM format image data is available electronically for revi ew and comparison. FINDINGS: Cerebrum: There is mild generalized atrophy and ventricles are normal given the degree of atrophy. M ild periventricular white matter change is present. There is a stable cystic encephalomalacia in the right frontal lobe. No midline shift, mass lesion, hemorrhage or acute infarction. No extraaxial flu id collections are seen. Posterior Fossa: The cerebellum and brainstem demonstrate no acute abnormality. The 4th ventricle is midline. The cerebellopontine angle is within normal limits. Extracranial: The visualized sinuses are clear. Skull: The calvaria is intact. No skull fracture. CONCLUSION: 1. Stable noncontrast head CT. No acute intracranial abnormality is identified. 2. Chronic findings include generalized atrophy and chronic periventricular white matter change with stable encephalomalacia in the right frontal lobe. . Electronically signed by: Moreno Manriquez MD 04/08/2018 11:14 PM EDT
[2018-04-08 23:25] LABS: Activated Partial Thrombo Time 28.4 sec (24.3-30.1); INR 1.1 Ratio; Prothrombin Time 11.3 sec (9.8-11.6)
[2018-04-08] MEDS ORDERED: Azithromycin 250 MG Tablet PO ONE (23:28)
[2018-04-08] MEDS ORDERED: Sod Chloride 0.9% Inj 1,000 ML IV.SIG SCH (23:30)
--- NOTE | 2018-04-09 00:50 | CT ---
EXAM DATE: 04/09/2018 12:36 AM EDT AGE/SEX: 87 years / Male INDICATIONS: Evaluate for mass. CLINICAL DATA: This is the patient's initial encounter. Patient reports that signs and symptoms have been present for 1 day and indicates a pain score of 0/10. MEDICAL/SURGICAL HISTORY: Congestive heart failure. . Aortic valve replacement. RADIATION DOSE: 10.55 CTDI (mGy) COMPARISON: [facility] [place] THORAX W/O CONTRAST, 09/07/2017. . TECHNIQUE: Multiple contiguous axial images were obtained through the chest without contrast. Image s were obtained in suspended respiration using multiple row detector helical technique. Using automa chris exposure control and adjustment of the mA and/or kV according to patient size, radiation dose was kept as low as reasonably achievable to obtain optimal diagnostic quality images. DICOM format imag e data is available electronically for review and comparison. FINDINGS: Lungs: There is moderate centrilobular emphysema. In the right upper lobe abutting the minor fissure is focal airspace consolidation and mild consolidation is present within the right lower lobe some o f which contains dense calcification. No pneumothorax is identified. There is a small right pleural e ffusion with suspected pleural thickening. Mediastinum: The heart and great vessels demonstrate no acute abnormality. No lymphadenopathy is id entified. There is severe atherosclerotic disease of the aorta with coronary artery calcification. Th e ascending aorta measures up to 4.6 cm. Left chest wall cardiac pacing device is present and the marilyn d tip is in the right heart. Pleurae: There is a small right pleural effusion, decreased in volume from the prior study. There is associated pleural thickening. Axillae: No lymphadenopathy. Musculoskeletal: The bones and soft tissues demonstrate no acute abnormality. There are degenerativ e changes throughout the thoracic spine. Median sternotomy wires are present. Other: The visualized upper abdominal structures demonstrate no acute abnormality. CONCLUSION: 1. There is right upper lobe and right lower lobe airspace consolidation. Although nonspecific this could represent an infectious process in the appropriate clinical setting. The appearance is not sugg estive of a mass but follow-up chest CT should be performed to confirm resolution. 2. At least a portion of the right lower lobe consolidation is chronic and is associated with dense calcification. 3. Very small right pleural effusion with mild pleural thickening. The pleural effusion has decrease d in size from the prior study. 4. Nonacute findings include moderate emphysema and coronary artery calcification. Electronically signed by: Moreno Manriquez MD 04/09/2018 12:49 AM EDT
[2018-04-09] MEDS ORDERED: Bisacodyl 10 MG Supp RECTAL PRN (02:46)
[2018-04-09] MEDS ORDERED: Acetaminophen 325 MG Tablet PO PRN (02:46)
--- NOTE | 2018-04-09 02:54 | P.HP ---
History of Present Illness Service: [facility] Primary Care Physician: UNKNOWN History of Present Illness: 87-year-old male with a past medical history significant for atrial fibrillation anticoagulated on Xarelto, hyperlipidemia, Parkinson's disease, history of CVA and history of AVR presents to the emergency department for evaluation of altered mental status. The patient was recently hospitalized in September 2017 where he was treated for a complex pleural effusion. Thoracentesis showed exudative effusion with concern for malignancy versus atypical infection. The patient was brought to the emergency department today by [facility] for the evaluation of visual hallucinations. The patient's son reports his hallucinations are usually associated with an infection. Chest CT performed in the emergency department today showed right sided airspace consolidation, infectious versus chronic. There is a small right pleural effusion that has decreased in size from previous. The patient denies any fevers/chills. No shortness of breath. No chest pain. No abdominal pain. No nausea/vomiting/diarrhea. Patient denies cough or congestion. He has no complaints at this time. Review of Systems All other systems reviewed negative except as stated in HPI [facility] - History History Provided By: [employer] / EMT - Medical History Medical History: Medical History (Last Updated 04/09/18 @ 02:50 by Magui Awad MD) Atrial fibrillation Depression History of CHF (congestive heart failure) History of CVA (cerebrovascular accident) Hyperlipidemia Parkinsons disease - Surgical History Surgical History: Surgical History (Last Updated 04/08/18 @ 20:32 by Lucina Barrientos) History of aortic valve replacement - Family History Family History: Family History (Last Updated 04/09/18 @ 02:51 by Magui Awad MD) Other Family history normal - Tobacco History Smoking Status: Former smoker - Alcohol History How Often Do You Have a Drink Containing Alcohol: Never - Substance Use History Substance History: No History of Abuse - Travel History Recent Travel in the [place] Within the Last 8 Weeks: No Recent Travel Out of the Country Within the Last 8 Weeks: No - Immunization History Tetanus Immunization: <5 Years Medications and Allergies Active Medications: Active Medications Sodium Chloride (Ns Inj) 1,000 mls @ 0 mls/hr IV.SIG BOLUS CAIO Allergies Allergy/AdvReac Type Severity Reaction Status Date / Time No Known Allergies Allergy Unverified 04/08/18 20:40 Home Medications Medication Instructions Recorded Confirmed Type atorvastatin 10 mg PO HS 04/08/18 04/09/18 History furosemide 20 mg PO DAILY 04/08/18 04/09/18 History levetiracetam 500 mg PO Q12H 04/08/18 04/09/18 History rivaroxaban [Xarelto] 20 mg PO DAILY 04/08/18 04/09/18 History sertraline 25 mg PO DAILY 04/08/18 04/09/18 History tamsulosin 0.4 mg PO DAILY 04/08/18 04/09/18 History Exam Vital signs: Vital Signs 04/08/18 20:26 04/09/18 00:32 Temperature 98.9 F Pulse Rate 62 60 Respiratory Rate 20 22 Blood Pressure 141/66 H 132/64 Pulse Oximetry 95 97 Intake & Output 04/08/18 04/08/18 04/09/18 06:59 18:59 06:59 Weight 68.039 kg Narrative: Gen.: No acute distress Head: Normocephalic. Atraumatic. EENT: Pupils equal round and reactive to light. Nose without drainage. Airway intact. Throat without injection. Cardiovascular: Regular rate and rhythm. No murmurs, rubs or gallops. Respiratory: Lungs clear to auscultation bilaterally. No wheezes or rhonchi. Abdomen: Soft, nontender, nondistended. No peritoneal signs. Musculoskeletal: No gross deformities. No edema. Skin: No obvious rashes or erythema. Neuro: Sensory and motor grossly intact. Cranial nerves II through XII grossly intact. Results - Labs CBC & Chem 7: 04/08/18 20:45 04/08/18 20:45 Labs: Laboratory Results - last 24 hr 04/08/18 04/08/18 04/08/18 20:45 20:45 22:47 WBC 8.6 RBC 4.67 Hgb 14.5 Hct 43.9 MCV 94.0 MCH 31.0 MCHC 33.0 RDW 15.1 Plt Count 269 MPV 7.9 Neut % (Auto) 76.8 H Lymph % (Auto) 18.0 [place] % (Auto) 4.3 Eos % (Auto) 0.4 Baso % (Auto) 0.5 Neut # (Auto) 6.6 Lymph # (Auto) 1.5 Person # (Auto) 0.4 Eos # (Auto) 0.0 Baso # (Auto) 0.0 WBC Differential . Differential Comment Auto diff final PT 11.3 INR 1.1 APTT 28.4 Sodium 141 Potassium 4.4 Chloride 110 H Carbon Dioxide 23.0 Anion Gap 8 BUN 36 H Creatinine 0.82 Estimated GFR 88 L Random Glucose 129 H Calcium 8.3 L Digoxin 0.4 L - Imaging Impressions Head CT 04/08/18 20:44 CONCLUSION: 1. Stable noncontrast head CT. No acute intracranial abnormality is identified. 2. Chronic findings include generalized atrophy and chronic periventricular white matter change with stable encephalomalacia in the right frontal lobe. . Chest X-Ray 04/08/18 21:19 CONCLUSION: Right mid and lower lung consolidation most likely pneumonia. Chest CT 04/09/18 00:21 CONCLUSION: 1. There is right upper lobe and right lower lobe airspace consolidation. Although nonspecific this could represent an infectious process in the appropriate clinical setting. The appearance is not suggestive of a mass but follow-up chest CT should be performed to confirm resolution. 2. At least a portion of the right lower lobe consolidation is chronic and is associated with dense calcification. 3. Very small right pleural effusion with mild pleural thickening. The pleural effusion has decreased in size from the prior study. 4. Nonacute findings include moderate emphysema and coronary artery calcification. Caprini VTE Risk Assessment Caprini VTE Risk Assessment: Moderate/High Risk (score >= 2) Caprini Risk Assessment Model: Point Value = 1 Point Value = 2 Point Value = 3 Point Value = 5 Age 41-60 Minor surgery BMI > 25 kg/m2 Swollen legs Varicose veins or History of unexplained or recurrent spontaneous Oral contraceptives or hormone replacement Sepsis (< 1 month) Serious lung disease, including pneumonia (< 1 month) Abnormal pulmonary function Acute myocardial infarction Congestive heart failure (< 1 month) History of inflammatory bowel disease Medical patient at bed rest Age 61-74 Arthroscopic surgery Major open surgery (> 45 min) Laparoscopic surgery (> 45 min) Malignancy Confined to bed (> 72 hours) Immobilizing plaster cast Central venous access Age >= 75 History of VTE Family history of VTE Factor V Leiden Prothrombin [id number] Lupus anticoagulant Anticardiolipin antibodies Elevated serum homocysteine Heparin-induced thrombocytopenia Other congenital or acquired thrombophilia Stroke (< 1 month) Elective arthroplasty Hip, pelvis, or leg fracture Acute spinal cord injury (< 1 month) Prophylaxis Regimen: Total Risk Factor Score Risk Level Prophylaxis Regimen 0-1 Low Early ambulation 2 Moderate Order ONE of the following: *Sequential Compression Device (SCD) *Heparin 5000 units SQ BID 3-4 Higher Order ONE of the following medications: *Heparin 5000 units SQ TID *Enoxaparin/Lovenox 40 mg SQ daily (WT < 150 kg, CrCl > 30 mL/min) *Enoxaparin/Lovenox 30 mg SQ daily (WT < 150 kg, CrCl > 10-29 mL/min) *Enoxaparin/Lovenox 30 mg SQ BID (WT < 150 kg, CrCl > 30 mL/min) AND/OR *Sequential Compression Device (SCD) 5 or more Highest Order ONE of the following medications: *Heparin 5000 units SQ TID (Preferred with Epidurals) *Enoxaparin/Lovenox 40 mg SQ daily (WT < 150 kg, CrCl > 30 mL/min) *Enoxaparin/Lovenox 30 mg SQ daily (WT < 150 kg, CrCl > 10-29 mL/min) *Enoxaparin/Lovenox 30 mg SQ BID (WT < 150 kg, CrCl > 30 mL/min) AND *Sequential Compression Device (SCD) Assessment and Plan - Plan Assessment/plan: 1. Visual hallucinations Etiology unclear May be secondary to infectious process 2. Abnormal chest CT CT of the chest showed right-sided consolidation, possibly infectious Azithromycin/Rocephin Pulmonology consulted, appreciate recommendations Patient with history of exudative effusion with concern for malignancy 3. Atrial fibrillation Continue anticoagulation with Xarelto Continue home medications 4. CHF Continue home Lasix 5. Hyperlipidemia/Parkinson's disease Continue home medications FEN Heart healthy diet Electrolytes: Monitor and replete as needed Xarelto
[2018-04-09] MEDS ORDERED: Heparin - SQ 10,000 UNITS/ML Vial SQ SCH (03:00)
[2018-04-09] MEDS: levETIRAcetam 500 MG Tablet PO SCH ×2 (03:38→14:40)
[2018-04-09 06:04] LABS: Bilirubin,Urine Negative (Negative); Clarity,Urine Clear (Clear); Color,Urine Yellow (Yellw/Straw); Glucose,Urine (UA) Negative (Negative); Leukocyte Esterase,Urine Negative (Negative); Mucus,Urine Few /lpf (Occasional); Nitrite,Urine Negative (Negative); Specific Gravity,Urine 1.025 (1.002-1.035)
[2018-04-09] MEDS: Sertraline 50 MG Tablet PO SCH (09:29)
[2018-04-09] MEDS: Furosemide 20 MG Tablet PO SCH (09:29)
[2018-04-09] MEDS: Rivaroxaban 20 MG Tablet PO SCH (09:29)
--- NOTE | 2018-04-09 10:54 | MB ---
cc: Jay Miner MD DATE: 04/09/2018 REQUESTING PHYSICIAN: Dr. Magui Awad REASON FOR CONSULTATION: Pleural effusion and lung density. HISTORY OF PRESENT ILLNESS: Mr. Hair is an 87-year-old male with history of coronary artery disease, status post CABG, aortic valve replacement, atrial fibrillation, hyperlipidemia. The patient was brought to the hospital. Chemistry shows sodium 141, potassium 4.4, chloride 110, CO2 of 23, BUN 36, creatinine 0.82. His INR is 1.1. Urinalysis is unremarkable. Toxicology screen is negative. His digoxin level is 0.4. Currently, he is alert, awake, very weak. He states that he does not see any physician, though he is taking a lot of medication including blood thinner. PAST MEDICAL HISTORY: Significant for history of CVA, coronary artery disease status post CABG, aortic valve replacement, Parkinson's disease, pleural effusion. MEDICATIONS: He is currently takin. Nebulizer treatment with DuoNeb. 2. Lipitor 10 mg a day. 3. Zithromax 500 mg a day. 4. Rocephin 1 gram a day. 5. Lasix 20 mg a day. 6. Keppra 500 mg every 12 hours. 7. Xarelto 20 mg a day. 8. Zoloft 25 mg a day. 9. Flomax 0.4 mg a day. ALLERGIES: NO KNOWN DRUG ALLERGIES. SOCIAL HISTORY: Has a history of smoking in the past. Drinks socially. He worked in construction. 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 FAMILY HISTORY: Retired, lives with his son. He has 2 children. REVIEW OF SYSTEMS: He states that he is able to ambulate. Denies any malignancy. No DVT or pulmonary embolism. No bleeding from any site. No liver or gallbladder problem. PHYSICAL EXAMINATION: GENERAL: Frail, elderly male, mild short of breath, not in any acute distress. VITAL SIGNS: Blood pressure 151/67, heart rate 59, respirations 16, temperature 97.6. HEENT: Pupils are equal and reactive to light. Oral mucosa and nasal mucosa normal. NECK: Supple. JVP not raised. CHEST: He has slightly decreased breath sounds at the right base. No rhonchi. HEART: S1, S2 normal. ABDOMEN: Benign. EXTREMITIES: No edema. ASSESSMENT AND PLAN: Right basal density with dense calcification in it. He will need a repeat CT scan of the chest in 2 months to make sure the lung density has resolved. Continue his antibiotic, monitor his CBC and electrolytes. Further treatment will depend on the course in the hospital. Thank you Dr. Awad for this consult. MD JONATHAN Diehl/deuce , 10:28 AM , 10:37 AM
--- NOTE | 2018-04-09 15:50 | P.DCO ---
- Diagnosis (1) Pneumonia - Physical Therapy Order: Evaluate and treat - Home Health Nursing Order: Medical education, Signs/symptoms of disease process - Case Management Consult Yes - Certification I have seen patient Johan Hair on 04/09/18. My clinical findings support the need for the requested home health care services because: Altered mental status, PNA, advanced age. Deconditioned with increased weakness I certify that my clinical findings support that this patient is homebound because: Impaired cognitive ability/safety (1) Pneumonia Qualifiers: Pneumonia type: due to unspecified organism
--- NOTE | 2018-04-09 15:58 | P.PN ---
Subjective Interval history: follow up for AMS and PNA: Patient examined, frail-appearing. Awake, oriented 2. Following simple commands. No hallucinations. Minimal cough, no sputum. No acute changes overnight. No fever. Physical Exam Vital signs: Vital Signs 04/08/18 20:26 04/09/18 00:32 04/09/18 03:08 Temperature 98.9 F Pulse Rate 62 60 59 L Respiratory Rate 20 22 16 Blood Pressure 141/66 H 132/64 Pulse Oximetry 95 97 96 04/09/18 03:38 04/09/18 07:50 04/09/18 08:00 Temperature 98 F 97.6 F Pulse Rate 60 57 L 60 Respiratory Rate 16 18 16 Blood Pressure 137/78 151/67 H Pulse Oximetry 99 100 90 L 04/09/18 12:00 Temperature 97.7 F Pulse Rate 60 Respiratory Rate 18 Blood Pressure 106/59 L Pulse Oximetry 95 Intake & Output 04/08/18 04/09/18 04/09/18 18:59 06:59 18:59 Weight 68.039 kg Other: Weight On Admission 68.039 kg Narrative: GENERAL: Thin built elderly male. No apparent distress SKIN: Warm and dry. HEAD: Atraumatic. Normocephalic. EYES: Pupils equal and round. No scleral icterus. No injection or drainage. ENT: No nasal bleeding or discharge. Mucous membranes pink and moist. NECK: Trachea midline. No JVD. CARDIOVASCULAR: Regular rate and rhythm. RESPIRATORY: No accessory muscle use. Clear to auscultation. Breath sounds equal bilaterally. GASTROINTESTINAL: Abdomen soft, non-tender, nondistended. Hepatic and splenic margins not palpable. MUSCULOSKELETAL: Extremities without clubbing, cyanosis, or edema. No obvious deformities. NEUROLOGICAL: Awake, oriented 2. Slow to respond. No focal deficits. PSYCHIATRIC: Calm, cooperative. Poor historian. Results - Labs CBC & Chem 7: 04/08/18 20:45 04/08/18 20:45 Laboratory Results - last 24 hr 04/08/18 04/08/18 04/08/18 20:45 20:45 22:47 WBC 8.6 RBC 4.67 Hgb 14.5 Hct 43.9 MCV 94.0 MCH 31.0 MCHC 33.0 RDW 15.1 Plt Count 269 MPV 7.9 Neut % (Auto) 76.8 H Lymph % (Auto) 18.0 [place] % (Auto) 4.3 Eos % (Auto) 0.4 Baso % (Auto) 0.5 Neut # (Auto) 6.6 Lymph # (Auto) 1.5 [place] # (Auto) 0.4 Eos # (Auto) 0.0 Baso # (Auto) 0.0 WBC Differential . Differential Comment Auto diff final PT 11.3 INR 1.1 APTT 28.4 Sodium 141 Potassium 4.4 Chloride 110 H Carbon Dioxide 23.0 Anion Gap 8 BUN 36 H Creatinine 0.82 Estimated GFR 88 L Random Glucose 129 H Calcium 8.3 L Urine Color Urine Clarity Urine pH Ur Specific [place] Urine Protein Urine Glucose (UA) Urine Ketones Urine Occult Blood Urine Nitrate Urine Bilirubin Urine Urobilinogen Ur Leukocyte Esterase Urine RBC Urine WBC Urine Mucus Micro UA Comment Ur Microscopic Review Urine Culture Comments Digoxin 0.4 L 04/09/18 05:40 WBC RBC Hgb Hct MCV MCH MCHC RDW Plt Count MPV Neut % (Auto) Lymph % (Auto) [place] % (Auto) Eos % (Auto) Baso % (Auto) Neut # (Auto) Lymph # (Auto) [place] # (Auto) Eos # (Auto) Baso # (Auto) WBC Differential Differential Comment PT INR APTT Sodium Potassium Chloride Carbon Dioxide Anion Gap BUN Creatinine Estimated GFR Random Glucose Calcium Urine Color Yellow Urine Clarity Clear Urine pH 5.0 Ur Specific [place] 1.025 Urine Protein Negative Urine Glucose (UA) Negative Urine Ketones Negative Urine Occult Blood Negative Urine Nitrate Negative Urine Bilirubin Negative Urine Urobilinogen Less than 2 Ur Leukocyte Esterase Negative Urine RBC 1 Urine WBC 1 Urine Mucus Few H Micro UA Comment Culture not ind Ur Microscopic Review Not Reportable Urine Culture Comments Culture not ind Digoxin - Imaging Impressions Head CT 04/08/18 20:44 CONCLUSION: 1. Stable noncontrast head CT. No acute intracranial abnormality is identified. 2. Chronic findings include generalized atrophy and chronic periventricular white matter change with stable encephalomalacia in the right frontal lobe. . Chest X-Ray 04/08/18 21:19 CONCLUSION: Right mid and lower lung consolidation most likely pneumonia. Chest CT 04/09/18 00:21 CONCLUSION: 1. There is right upper lobe and right lower lobe airspace consolidation. Although nonspecific this could represent an infectious process in the appropriate clinical setting. The appearance is not suggestive of a mass but follow-up chest CT should be performed to confirm resolution. 2. At least a portion of the right lower lobe consolidation is chronic and is associated with dense calcification. 3. Very small right pleural effusion with mild pleural thickening. The pleural effusion has decreased in size from the prior study. 4. Nonacute findings include moderate emphysema and coronary artery calcification. Assessment and Plan - Assessment (1) Pneumonia Code(s): J18.9 - Pneumonia, unspecified organism Status: Acute (2) Metabolic encephalopathy Code(s): G93.41 - Metabolic encephalopathy Status: Acute (3) History of CVA (cerebrovascular accident) Code(s): Z86.73 - Personal history of transient ischemic attack (TIA), and cerebral infarction without residual deficits Status: Chronic (4) CHF (congestive heart failure) Code(s): I50.9 - Heart failure, unspecified Status: Chronic (5) Atrial fibrillation Code(s): I48.91 - Unspecified atrial fibrillation Status: Chronic (6) Seizure disorder Code(s): G40.909 - Epilepsy, unspecified, not intractable, without status epilepticus Status: Chronic - Plan 87-year-old male with a past medical history significant for atrial fibrillation anticoagulated on Xarelto, hyperlipidemia, Parkinson's disease, history of CVA and history of AVR presents to the emergency department for evaluation of altered mental status. Was recently hospitalized in September 2017 where he was treated for a complex pleural effusion. Thoracentesis showed exudative effusion with concern for malignancy versus atypical infection. The patient was brought to the emergency department today by [facility] for the evaluation of visual hallucinations. The patient's son reports his hallucinations are usually associated with an infection. Chest CT performed in the emergency department today showed right sided airspace consolidation, infectious versus chronic. There is a small right pleural effusion that has decreased in size from previous. Metabolic encephalopathy Had Visual hallucinations-now resolved. Etiology unclear May be secondary to infectious process -head ct negative -frequent reorientation Abnormal chest CT Patient with history of exudative effusion with concern for malignancy CT of the chest showed right-sided consolidation, possibly infectious -Continue with Azithromycin/Rocephin -Pulmonology consulted, appreciate recommendations. Will need repeat CT chest in 2 months to monitor for resolution. Hx of seizures -continue Keppra Atrial fibrillation -Continue anticoagulation with Xarelto -Continue home medications Chronic CHF, stable. No evidence of CHF -Continue home Lasix Hyperlipidemia -continue home medications Parkinson's disease -Continue home medications -PT consult DVT prophylaxis with Xarelto CM consult for HHC Poss dc 1-2 days (1) Pneumonia Qualifiers: Pneumonia type: due to unspecified organism (4) CHF (congestive heart failure) Qualifiers: Heart failure type: unspecified Heart failure chronicity: unspecified Qualified Code(s): I50.9 - Heart failure, unspecified (5) Atrial fibrillation Qualifiers: Atrial fibrillation type: paroxysmal Qualified Code(s): I48.0 - Paroxysmal atrial fibrillation
[2018-04-10] MEDS: Azithromycin Inj 500 MG in Sodium Chlor 0.9% Inj 250 ML IV.SIG SCH (01:05)
[2018-04-10] MEDS: levETIRAcetam 500 MG Tablet PO SCH ×2 (02:05→14:51)
[2018-04-10] MEDS: Rivaroxaban 20 MG Tablet PO SCH (09:21)
[2018-04-10] MEDS: Sertraline 50 MG Tablet PO SCH (09:21)
[2018-04-10] MEDS: Furosemide 20 MG Tablet PO SCH (09:22)
[2018-04-10 10:07] LABS: Baso % (Auto) 0.6 % (0.0-2.0); Eos # (Auto) 0.1 th/mm3 (0.0-0.4); Eos % (Auto) 1.2 % (0.0-4.0); Hematocrit 41.1 % (39.0-51.0); Hemoglobin 13.6 gm/dL (13.0-17.0); Lymph # (Auto) 1.6 th/mm3 (1.0-4.8); Lymph % (Auto) 22.7 % (9.0-44.0); Mean Corpuscular Hemoglobin 31.1 pg (27.0-34.0); Mean Platelet Volume 7.6 fL (7.0-11.0); Mono # (Auto) 0.4 th/mm3 (0.0-0.9); Mono % (Auto) 5.7 % (0.0-8.0); Neut # (Auto) 4.9 th/mm3 (1.8-7.7); Neut % (Auto) 69.8 % (16.0-70.0); Platelet Count 208 th/mm3 (150-450); Red Blood Count 4.38 mil/mm3 (4.50-5.90); Red Cell Distribution Width 15.4 % (11.6-17.2)
[2018-04-10 10:26] LABS: Calcium 7.9 mg/dL (8.5-10.1); Carbon Dioxide 27.9 meq/L (21.0-32.0); Potassium 3.7 meq/L (3.5-5.1)
--- NOTE | 2018-04-10 13:27 | P.PN ---
Subjective Interval history: follow up for AMS and PNA:More awake, oriented 2. Following simple commands. No hallucinations. Minimal cough, no sputum. No acute changes overnight. No fever. Has not been out of bed yet. Physical Exam Vital signs: Vital Signs 04/09/18 15:59 04/09/18 20:00 04/09/18 21:32 Temperature 97.6 F 97.7 F Pulse Rate 61 59 L 60 Respiratory Rate 16 18 18 Blood Pressure 104/54 L 104/57 L Pulse Oximetry 98 94 L 04/09/18 23:57 04/10/18 00:00 04/10/18 03:49 Temperature 97.3 F L Pulse Rate 64 59 L 71 Respiratory Rate 19 20 Blood Pressure 115/55 L Pulse Oximetry 94 L 04/10/18 04:00 04/10/18 05:09 04/10/18 08:00 Temperature 97.4 F L 98.4 F Pulse Rate 62 61 Respiratory Rate 18 16 Blood Pressure 119/56 L 129/68 Pulse Oximetry 92 L 95 94 L 04/10/18 09:15 04/10/18 09:19 04/10/18 12:00 Temperature 97.5 F L Pulse Rate 60 60 65 Respiratory Rate 18 20 Blood Pressure 112/55 L Pulse Oximetry 94 L 94 L Intake & Output 04/09/18 04/10/18 04/10/18 18:59 06:59 18:59 Intake Total 450 / 450 Output Total 250 / 250 Balance 200 / 200 Weight 66.3 kg Intake: IV 450 / 450 Azithromycin Inj 500 MG In NS 250 / 250 Inj 250 ML @ 250 mls/hr IV.SIG Q24H CAIO Rx#:[id number] Rocephin Inj 1,000 MG In NS Inj 100 / 100 100 ML @ 200 mls/hr IV.SIG Q24H CAIO Rx#:[id number] Output: Urine 250 / 250 Other: Date of Last Bowel Movement 04/08/18 04/08/18 Narrative: GENERAL: Thin built elderly male. No apparent distress SKIN: Warm and dry. HEAD: Atraumatic. Normocephalic. EYES: Pupils equal and round. No scleral icterus. No injection or drainage. ENT: No nasal bleeding or discharge. Mucous membranes pink and moist. NECK: Trachea midline. No JVD. CARDIOVASCULAR: Regular rate and rhythm. RESPIRATORY: No accessory muscle use. Clear to auscultation. Breath sounds equal bilaterally. GASTROINTESTINAL: Abdomen soft, non-tender, nondistended. Hepatic and splenic margins not palpable. MUSCULOSKELETAL: Extremities without clubbing, cyanosis, or edema. No obvious deformities. NEUROLOGICAL: Awake, oriented 2. Slow to respond. No focal deficits. PSYCHIATRIC: Calm, cooperative. Poor historian. Results - Labs CBC & Chem 7: 04/10/18 09:36 04/10/18 09:36 Laboratory Results - last 24 hr 04/10/18 04/10/18 09:36 09:36 WBC 7.0 RBC 4.38 L Hgb 13.6 Hct 41.1 MCV 94.0 MCH 31.1 MCHC 33.0 RDW 15.4 Plt Count 208 MPV 7.6 Neut % (Auto) 69.8 Lymph % (Auto) 22.7 [place] % (Auto) 5.7 Eos % (Auto) 1.2 Baso % (Auto) 0.6 Neut # (Auto) 4.9 Lymph # (Auto) 1.6 [place] # (Auto) 0.4 Eos # (Auto) 0.1 Baso # (Auto) 0.0 WBC Differential . Differential Comment Auto diff final Sodium 147 H Potassium 3.7 Chloride 111 H Carbon Dioxide 27.9 Anion Gap 8 BUN 27 H Creatinine 0.84 Estimated GFR 86 L Random Glucose 131 H Calcium 7.9 L Assessment and Plan - Assessment (1) Pneumonia Code(s): J18.9 - Pneumonia, unspecified organism Status: Acute (2) Metabolic encephalopathy Code(s): G93.41 - Metabolic encephalopathy Status: Acute (3) History of CVA (cerebrovascular accident) Code(s): Z86.73 - Personal history of transient ischemic attack (TIA), and cerebral infarction without residual deficits Status: Chronic (4) CHF (congestive heart failure) Code(s): I50.9 - Heart failure, unspecified Status: Chronic (5) Atrial fibrillation Code(s): I48.91 - Unspecified atrial fibrillation Status: Chronic (6) Seizure disorder Code(s): G40.909 - Epilepsy, unspecified, not intractable, without status epilepticus Status: Chronic - Plan 87-year-old male with a past medical history significant for atrial fibrillation anticoagulated on Xarelto, hyperlipidemia, Parkinson's disease, history of CVA and history of AVR presents to the emergency department for evaluation of altered mental status. Was recently hospitalized in September 2017 where he was treated for a complex pleural effusion. Thoracentesis showed exudative effusion with concern for malignancy versus atypical infection. The patient was brought to the emergency department today by [facility] for the evaluation of visual hallucinations. The patient's son reports his hallucinations are usually associated with an infection. Chest CT performed in the emergency department today showed right sided airspace consolidation, infectious versus chronic. There is a small right pleural effusion that has decreased in size from previous. Metabolic encephalopathy Had Visual hallucinations-now resolved. Etiology unclear May be secondary to infectious process back to baseline, no hallucinations -head ct negative -frequent reorientation Abnormal chest CT Patient with history of exudative effusion with concern for malignancy CT of the chest showed right-sided consolidation, possibly infectious -Continue with Azithromycin/Rocephin -Pulmonology consulted, appreciate recommendations. Will need repeat CT chest in 2 months to monitor for resolution. Hx of seizures -continue Keppra Atrial fibrillation -Continue anticoagulation with Xarelto -Continue home medications Chronic CHF, stable. No evidence of CHF -Continue home Lasix Hypernatremia -Na 147 today, inc. Po water intake Hyperlipidemia -continue home medications Parkinson's disease -Continue home medications -PT consult DVT prophylaxis with Xarelto CM consult for [facility] PT eval pending Improving, poss dc today or tomorrow BMP in am (1) Pneumonia Qualifiers: Pneumonia type: due to unspecified organism (4) CHF (congestive heart failure) Qualifiers: Heart failure type: unspecified Heart failure chronicity: unspecified Qualified Code(s): I50.9 - Heart failure, unspecified (5) Atrial fibrillation Qualifiers: Atrial fibrillation type: paroxysmal Qualified Code(s): I48.0 - Paroxysmal atrial fibrillation
--- NOTE | 2018-04-10 19:14 | P.PNPL ---
Subjective Interval history: 87 YOWm with COPD,CAD,AVR Feels better no CP Mild cough Son at BS Physical Exam Vital signs: Vital Signs 04/09/18 20:00 04/09/18 21:32 04/09/18 23:57 Temperature 97.7 F 97.3 F L Pulse Rate 59 L 60 64 Respiratory Rate 18 18 19 Blood Pressure 104/57 L 115/55 L Pulse Oximetry 94 L 94 L 04/10/18 00:00 04/10/18 03:49 04/10/18 04:00 Temperature 97.4 F L Pulse Rate 59 L 71 62 Respiratory Rate 20 18 Blood Pressure 119/56 L Pulse Oximetry 92 L 04/10/18 05:09 04/10/18 08:00 04/10/18 09:15 Temperature 98.4 F Pulse Rate 61 60 Respiratory Rate 16 Blood Pressure 129/68 Pulse Oximetry 95 94 L 04/10/18 09:19 04/10/18 12:00 04/10/18 13:15 Temperature 97.5 F L Pulse Rate 60 65 63 Respiratory Rate 18 20 Blood Pressure 112/55 L Pulse Oximetry 94 L 94 L 04/10/18 16:12 04/10/18 17:16 Temperature 97.7 F Pulse Rate 60 59 L Respiratory Rate 18 Blood Pressure 118/59 L Pulse Oximetry 98 Intake & Output 04/10/18 04/10/18 04/11/18 06:59 18:59 06:59 Intake Total 450 / 450 Output Total 250 / 250 300 / 300 Balance 200 / 200 -300 / -300 Weight 66.3 kg Intake: IV 450 / 450 Azithromycin Inj 500 MG In NS 250 / 250 Inj 250 ML @ 250 mls/hr IV.SIG Q24H CAIO Rx#:[id number] Rocephin Inj 1,000 MG In NS Inj 100 / 100 100 ML @ 200 mls/hr IV.SIG Q24H CAIO Rx#:[id number] Output: Urine 250 / 250 300 / 300 Other: Date of Last Bowel Movement 04/08/18 04/08/18 GENERAL: Frail elderly Wm, weak SKIN: Warm and dry. HEAD: Normocephalic. EYES: No scleral icterus. No injection or drainage. NECK: Supple, trachea midline. No JVD or lymphadenopathy. CARDIOVASCULAR: Regular rate and rhythm without murmurs, gallops, or rubs. RESPIRATORY: Breath sounds equal bilaterally. No accessory muscle use. GASTROINTESTINAL: Abdomen soft, non-tender, nondistended. MUSCULOSKELETAL: No cyanosis, or edema. BACK: Nontender without obvious deformity. No CVA tenderness. Assessment and Plan - Plan IMPRESSION: RT basal infilt with calcification, likly chronic Pleural effusion COPD CAD, s/p CABG S/P AVR Advanced age. PLAN: DW Pt and his son Cont Abx Aerosol nebs monitor CBC Will need rpt CT chest as out pt DW Pt and his son at BS
[2018-04-11] MEDS: Azithromycin Inj 500 MG in Sodium Chlor 0.9% Inj 250 ML IV.SIG SCH (01:42)
[2018-04-11] MEDS: levETIRAcetam 500 MG Tablet PO SCH (03:01)
[2018-04-11 08:29] LABS: Calcium 8.1 mg/dL (8.5-10.1); Carbon Dioxide 27.3 meq/L (21.0-32.0); Potassium 3.7 meq/L (3.5-5.1)
--- NOTE | 2018-04-11 08:54 | P.PN ---
Subjective Interval history: follow up for AMS and PNA: awake, oriented x 2. No cough, feels better. Following simple commands. NO fever. No changes overnight. Was out of bed with PT, doing better. Spoke to son last night, they have caregivers at home. Physical Exam Vital signs: Vital Signs 04/10/18 09:15 04/10/18 09:19 04/10/18 12:00 Temperature 97.5 F L Pulse Rate 60 60 65 Respiratory Rate 18 20 Blood Pressure 112/55 L Pulse Oximetry 94 L 94 L 04/10/18 13:15 04/10/18 16:12 04/10/18 17:16 Temperature 97.7 F Pulse Rate 63 60 59 L Respiratory Rate 18 Blood Pressure 118/59 L Pulse Oximetry 98 04/10/18 20:00 04/10/18 20:43 04/11/18 00:00 Temperature 97.7 F 97.8 F Pulse Rate 60 60 60 Respiratory Rate 20 20 21 Blood Pressure 114/54 L 112/56 L Pulse Oximetry 99 97 96 04/11/18 03:17 04/11/18 04:00 Temperature 98.2 F Pulse Rate 60 70 Respiratory Rate 18 20 Blood Pressure 107/59 L Pulse Oximetry 96 Intake & Output 04/10/18 04/11/18 04/11/18 18:59 06:59 18:59 Intake Total 350 / 350 Output Total 300 / 300 350 / 350 Balance -300 / -300 0 / 0 Weight 64.7 kg Intake: IV 350 / 350 Azithromycin Inj 500 MG In NS 250 / 250 Inj 250 ML @ 250 mls/hr IV.SIG Q24H CAIO Rx#:[id number] Rocephin Inj 1,000 MG In NS Inj 100 / 100 100 ML @ 200 mls/hr IV.SIG Q24H CAIO Rx#:[id number] Output: Urine 300 / 300 350 / 350 Other: Date of Last Bowel Movement 04/08/18 04/08/18 Narrative: GENERAL: Thin built elderly male. No apparent distress SKIN: Warm and dry. HEAD: Atraumatic. Normocephalic. EYES: Pupils equal and round. No scleral icterus. No injection or drainage. ENT: No nasal bleeding or discharge. Mucous membranes pink and moist. NECK: Trachea midline. No JVD. CARDIOVASCULAR: Regular rate and rhythm. RESPIRATORY: No accessory muscle use. Clear to auscultation. Breath sounds equal bilaterally. GASTROINTESTINAL: Abdomen soft, non-tender, nondistended. Hepatic and splenic margins not palpable. MUSCULOSKELETAL: Extremities without clubbing, cyanosis, or edema. No obvious deformities. NEUROLOGICAL: Awake, oriented 2. Slow to respond. No focal deficits. PSYCHIATRIC: Calm, cooperative. Poor historian. Results - Labs CBC & Chem 7: 04/10/18 09:36 04/11/18 06:10 Laboratory Results - last 24 hr 04/10/18 04/10/18 04/11/18 09:36 09:36 06:10 WBC 7.0 RBC 4.38 L Hgb 13.6 Hct 41.1 MCV 94.0 MCH 31.1 MCHC 33.0 RDW 15.4 Plt Count 208 MPV 7.6 Neut % (Auto) 69.8 Lymph % (Auto) 22.7 [place] % (Auto) 5.7 Eos % (Auto) 1.2 Baso % (Auto) 0.6 Neut # (Auto) 4.9 Lymph # (Auto) 1.6 [place] # (Auto) 0.4 Eos # (Auto) 0.1 Baso # (Auto) 0.0 WBC Differential . Differential Comment Auto diff final Sodium 147 H 147 H Potassium 3.7 3.7 Chloride 111 H 110 H Carbon Dioxide 27.9 27.3 Anion Gap 8 10 BUN 27 H 29 H Creatinine 0.84 0.84 Estimated GFR 86 L 86 L Random Glucose 131 H 89 Calcium 7.9 L 8.1 L Assessment and Plan - Assessment (1) Pneumonia Code(s): J18.9 - Pneumonia, unspecified organism Status: Acute (2) Metabolic encephalopathy Code(s): G93.41 - Metabolic encephalopathy Status: Acute (3) History of CVA (cerebrovascular accident) Code(s): Z86.73 - Personal history of transient ischemic attack (TIA), and cerebral infarction without residual deficits Status: Chronic (4) CHF (congestive heart failure) Code(s): I50.9 - Heart failure, unspecified Status: Chronic (5) Atrial fibrillation Code(s): I48.91 - Unspecified atrial fibrillation Status: Chronic (6) Seizure disorder Code(s): G40.909 - Epilepsy, unspecified, not intractable, without status epilepticus Status: Chronic - Plan 87-year-old male with a past medical history significant for atrial fibrillation anticoagulated on Xarelto, hyperlipidemia, Parkinson's disease, history of CVA and history of AVR presents to the emergency department for evaluation of altered mental status. Was recently hospitalized in September 2017 where he was treated for a complex pleural effusion. Thoracentesis showed exudative effusion with concern for malignancy versus atypical infection. The patient was brought to the emergency department today by [facility] for the evaluation of visual hallucinations. The patient's son reports his hallucinations are usually associated with an infection. Chest CT performed in the emergency department today showed right sided airspace consolidation, infectious versus chronic. There is a small right pleural effusion that has decreased in size from previous. Metabolic encephalopathy Had Visual hallucinations-now resolved. Etiology unclear May be secondary to infectious process back to baseline, no hallucinations -head ct negative -frequent reorientation -stable back to baseline Abnormal chest CT Patient with history of exudative effusion with concern for malignancy CT of the chest showed right-sided consolidation, possibly infectious -Continue with Azithromycin/Rocephin -Pulmonology consulted, appreciate recommendations. Will need repeat CT chest in 2 months to monitor for resolution. -d/w Dr. Miner, ok for dc. Pt. to f/u as OP for repeat CT and continue abx Hx of seizures -continue Keppra Atrial fibrillation -Continue anticoagulation with Xarelto -Continue home medications Chronic CHF, stable. No evidence of CHF -Continue home Lasix Hypernatremia -Na 147 today, inc. Po water intake Hyperlipidemia -continue home medications Parkinson's disease -Continue home medications -PT consult DVT prophylaxis with Xarelto CM consult for HHC stable for dc D/W son yesterday Discharge with C f/u Dr. Miner, will need repeat CT as OP Diet-heart healthy Activity as tolerated D/W RN, CM, pt and family (1) Pneumonia Qualifiers: Pneumonia type: due to unspecified organism (4) CHF (congestive heart failure) Qualifiers: Heart failure type: unspecified Heart failure chronicity: unspecified Qualified Code(s): I50.9 - Heart failure, unspecified (5) Atrial fibrillation Qualifiers: Atrial fibrillation type: paroxysmal Qualified Code(s): I48.0 - Paroxysmal atrial fibrillation
[2018-04-11] MEDS: Furosemide 20 MG Tablet PO SCH (09:57)
[2018-04-11] MEDS: Rivaroxaban 20 MG Tablet PO SCH (09:57)
[2018-04-11] MEDS: Sertraline 50 MG Tablet PO SCH (09:57)
--- NOTE | 2018-04-11 18:11 | P.DS ---
<Francisca Harris - Last Filed: 04/11/18 18:09> Date of admission: 04/09/18 04:44 Primary care physician: UNKNOWN Attending physician on discharge: [place] Anticipated date of discharge: 04/11/18 Brief History from admission: 87-year-old male with a past medical history significant for atrial fibrillation anticoagulated on Xarelto, hyperlipidemia, Parkinson's disease, history of CVA and history of AVR presents to the emergency department for evaluation of altered mental status. The patient was recently hospitalized in September 2017 where he was treated for a complex pleural effusion. Thoracentesis showed exudative effusion with concern for malignancy versus atypical infection. The patient was brought to the emergency department today by [facility] for the evaluation of visual hallucinations. The patient's son reports his hallucinations are usually associated with an infection. Chest CT performed in the emergency department today showed right sided airspace consolidation, infectious versus chronic. There is a small right pleural effusion that has decreased in size from previous. The patient denies any fevers/chills. No shortness of breath. No chest pain. No abdominal pain. No nausea/vomiting/diarrhea. Patient denies cough or congestion. He has no complaints at this time. DS: Diagnosis - Discharge Diagnosis (1) Pneumonia Status: Acute (2) Metabolic encephalopathy Status: Acute (3) History of CVA (cerebrovascular accident) Status: Chronic (4) CHF (congestive heart failure) Status: Chronic (5) Atrial fibrillation Status: Chronic (6) Seizure disorder Status: Chronic DS: Summary Hospital Course: 87-year-old male with a past medical history significant for atrial fibrillation anticoagulated on Xarelto, hyperlipidemia, Parkinson's disease, history of CVA and history of AVR presents to the emergency department for evaluation of altered mental status. Was recently hospitalized in September 2017 where he was treated for a complex pleural effusion. Thoracentesis showed exudative effusion with concern for malignancy versus atypical infection. The patient was brought to the emergency department today by [facility] for the evaluation of visual hallucinations. The patient's son reports his hallucinations are usually associated with an infection. Chest CT performed in the emergency department today showed right sided airspace consolidation, infectious versus chronic. There was a small right pleural effusion that has decreased in size from previous. Admitted with: Metabolic encephalopathy Had Visual hallucinations-which resolved. Etiology unclear May be secondary to infectious process head ct negative frequent reorientation stable back to baseline Abnormal chest CT Patient with history of exudative effusion with concern for malignancy CT of the chest showed right-sided consolidation, possibly infectious Started on Azithromycin/Rocephin Pulmonology consulted, appreciated recommendations. Will need repeat CT chest in 2 months to monitor for resolution. d/w Dr. Miner, ok for dc. Pt. to f/u as OP for repeat CT and continue abx Hx of seizures continue Keppra Atrial fibrillation Continue anticoagulation with Xarelto Continue home medications Chronic CHF, stable. No evidence of CHF Continued home Lasix Hypernatremia -Na 147 , inc. Po water intake Hyperlipidemia -continue home medications Parkinson's disease -Continue home medications -PT consult DVT prophylaxis with Xarelto CM consult for [facility] Pt. improved, no fever, no cp, no sob NO hallucinations Discharge with [facility] f/u Dr. Miner, will need repeat CT as OP Diet-heart healthy Activity as tolerated D/W RN, CM, pt and family - Time Spent with Patient Total time spent providing and/or coordinating discharge services: Less than 30 minutes - Quality: VTE Deep Vein Thrombosis/Pulmonary Embolism Present on Admission: No Exam Vital signs: Vital Signs 04/10/18 20:00 04/10/18 20:43 04/11/18 00:00 Temperature 97.7 F 97.8 F Pulse Rate 60 60 60 Respiratory Rate 20 20 21 Blood Pressure 114/54 L 112/56 L Pulse Oximetry 99 97 96 04/11/18 03:17 04/11/18 04:00 04/11/18 09:18 Temperature 98.2 F 97.5 F L Pulse Rate 60 70 59 L Respiratory Rate 18 20 18 Blood Pressure 107/59 L 116/59 L Pulse Oximetry 96 97 04/11/18 09:50 04/11/18 10:18 Temperature Pulse Rate 60 60 Respiratory Rate 18 Blood Pressure Pulse Oximetry Intake & Output 04/10/18 04/11/18 04/11/18 18:59 06:59 18:59 Intake Total 350 / 350 Output Total 300 / 300 350 / 350 Balance -300 / -300 0 / 0 Weight 64.7 kg Intake: IV 350 / 350 Azithromycin Inj 500 MG In NS 250 / 250 Inj 250 ML @ 250 mls/hr IV.SIG Q24H [facility] Rx#:[id number] Rocephin Inj 1,000 MG In NS Inj 100 / 100 100 ML @ 200 mls/hr IV.SIG Q24H [facility] Rx#:[id number] Output: Urine 300 / 300 350 / 350 Other: Date of Last Bowel Movement 04/08/18 04/08/18 04/10/18 Results Procedures completed during hospitalization: none Labs on day of discharge: Labs from last 24 hours 04/11/18 06:10 Sodium 147 H Potassium 3.7 Chloride 110 H Carbon Dioxide 27.3 Anion Gap 10 BUN 29 H Creatinine 0.84 Estimated GFR 86 L Random Glucose 89 Calcium 8.1 L - Impressions ITS Impressions Head CT 04/08/18 20:44 CONCLUSION: 1. Stable noncontrast head CT. No acute intracranial abnormality is identified. 2. Chronic findings include generalized atrophy and chronic periventricular white matter change with stable encephalomalacia in the right frontal lobe. . Chest X-Ray 04/08/18 21:19 CONCLUSION: Right mid and lower lung consolidation most likely pneumonia. Chest CT 04/09/18 00:21 CONCLUSION: 1. There is right upper lobe and right lower lobe airspace consolidation. Although nonspecific this could represent an infectious process in the appropriate clinical setting. The appearance is not suggestive of a mass but follow-up chest CT should be performed to confirm resolution. 2. At least a portion of the right lower lobe consolidation is chronic and is associated with dense calcification. 3. Very small right pleural effusion with mild pleural thickening. The pleural effusion has decreased in size from the prior study. 4. Nonacute findings include moderate emphysema and coronary artery calcification. <Vivian,Thendrex - Last Filed: 05/27/18 13:56> Date of admission: 04/09/18 04:44 Primary care physician: UNKNOWN DS: Summary - Time Spent with Patient Total time spent providing and/or coordinating discharge services: Results - Impressions ITS Impressions Head CT 04/08/18 20:44 CONCLUSION: 1. Stable noncontrast head CT. No acute intracranial abnormality is identified. 2. Chronic findings include generalized atrophy and chronic periventricular white matter change with stable encephalomalacia in the right frontal lobe. . Chest X-Ray 04/08/18 21:19 CONCLUSION: Right mid and lower lung consolidation most likely pneumonia. Chest CT 04/09/18 00:21 CONCLUSION: 1. There is right upper lobe and right lower lobe airspace consolidation. Although nonspecific this could represent an infectious process in the appropriate clinical setting. The appearance is not suggestive of a mass but follow-up chest CT should be performed to confirm resolution. 2. At least a portion of the right lower lobe consolidation is chronic and is associated with dense calcification. 3. Very small right pleural effusion with mild pleural thickening. The pleural effusion has decreased in size from the prior study. 4. Nonacute findings include moderate emphysema and coronary artery calcification. Discharge Plan - Discharge Order Discharge Orders: Discharge Order (Routine); Ordered 04/11/18 Ordered By: Francisca Harris - Discharge Details Anticipated Discharge Date: 04/11/18 - Physicians Team Primary Care Provider: UNKNOWN, Attending Provider: [place] Other Providers: Jay Miner MD ; Abdirahman Gary
== END 2018-04-11 12:15 | disposition home health service (06) ==
LOC: NEPC 20:19 → INTOOBSV 04-09 04:44 → NEDA 04-09 04:44 → NEPGCP 04-09 06:22
PROVIDERS: ADMIT Hospitalist; ATTEND Hospitalist